=== PATIENT | male | born 2000 | race Two or more races ===

== ENCOUNTER 2024-06-19 13:50 | Inpatient (IN) | payer OTHER, SELFPAY ==
--- NOTE | ~2024-06-19 | XR_ITS ---
EXAMINATION: XR CHEST 2 VIEW CLINICAL INFORMATION: Altered, rule out infection COMPARISON: None TECHNIQUE: PA and lateral views of the chest obtained. FINDINGS: The lungs are clear. There are no pleural effusions. The cardiomediastinal silhouette is normal. XR/XR chest 2V IMPRESSION: No acute cardiopulmonary disease.
--- NOTE | ~2024-06-19 | CT_ITS ---
EXAMINATION: CT head/brain wo IV con CLINICAL INFORMATION: Reason for Exam altered, unknown head injury COMPARISON: CT head without contrast 01/14/2013 TECHNIQUE: Contiguous axial imaging was performed from the skull base to vertex without intravenous contrast. Sagittal and coronal reformatted images were obtained. This CT examination was performed using dose optimization techniques as appropriate, variously including the following: * Automated exposure control * Adjustment of mA and/or kV according to patient size (this includes techniques or standardized protocols for targeted exams where dose is matched to indication/reason for exam; i.e. extremities or head) Use of iterative reconstruction technique DLP: 581.13 mGy-cm FINDINGS: No acute osseous or soft tissue abnormality. The mastoid air cells and visualized portions of the paranasal sinuses are well aerated. Polyp in anterior right nasal cavity is noted. There is no evidence of acute intracranial hemorrhage or territorial infarction. No abnormal mass effect or midline shift is seen. Rod to white matter differentiation is well preserved. No extra-axial fluid collections are identified. No hydrocephalus. No significant volume loss. There is no abnormal attenuation within the brain parenchyma. CT/CT head/brain wo IV con IMPRESSION: No acute intracranial abnormality including hemorrhage, mass effect, hydrocephalus, or acute territorial edematous infarction.
--- NOTE | 2024-06-19 14:23 | ED_ITS ---
HPI - Psych General Chief Complaint: Psychiatric Symptoms Stated Complaint: Crisis Time Seen by Provider: 06/19/24 14:02 Source: patient Mode of arrival: ambulatory Limitations: no limitations History of Present Illness ED Provider: DANIELA SHANNON PA-C HPI Narrative: 24 year old male presents to the ED today for evaluation of spiritual issues . Reports he is not doing well spiritually. States the other half of him left his body. He believes he may have started judgment day. Admits to auditory hallucinations up until last night. States the voices were telling him everything . Denies AH/VH/TH at present. Denies SI/HI. He tells me that the only medication he takes is [id number] pain medication. Does not endorse previous psychiatric history. He tells me that Gregoria denies illicit substance use and alcohol consumption however the other side of him, Arturo, uses marijuana and consumes alcohol. Denies any physical complaints. Of note, patient states that his presentation may be secondary to a previous concussion. Reports to boxing regularly. He can not tell me when he was diagnosed with a concussion. He denies any recent head injuries. Related Data Home Medications ?Medication ?Instructions ?Recorded ?Confirmed No Known Home Meds 06/19/24 06/19/24 Allergies Allergy/AdvReac Type Severity Reaction Status Date / Time No Known Drug Allergies Allergy Mild NONE Unverified 06/19/24 14:41 [NO KNOWN DRUG ALLERGIES] Review of Systems 2 Review of Systems: Constitutional: No fever, chills, fatigue, night sweats, weight changes ENT/Mouth: No ear pain, hearing loss, nasal congestion, sinus pain, rhinorrhea, sore throat Eyes: No eye pain, swelling, redness, vision changes, discharge Cardio: No chest pain, palpitations, [place], orthopnea, peripheral edema Pulm: No SOB, cough, sputum, wheezing, dyspnea, hemoptysis GI: No nausea, vomiting, hematemesis, abdominal pain, diarrhea, constipation, hematochezia, melena : No irregular bleeding, dysuria, frequency, urgency, hesitancy, hematuria, flank pain, urinary flow changes, urinary incontinence or retention MSK: No back pain, neck pain, joint pain, myalgias Skin: No lesions, rashes Neuro: No weakness, numbness, paresthesias, LOC, dizziness, headache Psych: No anxiety/panic, depression, SI/HI, AH/VH All other systems reviewed and are negative. [facility] Past Medical History Attestation statement: The following information was validated with the patient. Source: old records reviewed and nursing notes reviewed Social History Social History Smoked in Last 30 Days: No Use of substances other than those prescribed or required for medical reasons: Yes Substance Use Type: Marijuana Advance Directives: No Advance Directives Information Provided: No Physical Exam 2 Vital Signs: Vital Signs: Last Vital Signs Temp 98.6 F 06/19/24 14:44 Pulse 94 06/19/24 14:44 Resp 18 06/19/24 14:44 BP 146/88 H 06/19/24 14:44 Pulse Ox 99 06/19/24 14:44 O2 Del Method Room Air 06/19/24 14:44 BMI result Body Mass Index 21.3 hypertensive, vitals otherwise wnl. Const: General: cooperative, healthy appearing, comfortable and no acute distress Orientation/consciousness: patient oriented x3 Limitations: no limitations HEENT: Head: Yes normal to inspection, Yes No palpable skull fracture present, Yes normocephalic, Yes atraumatic, No Brown's sign, No raccoon eyes and No periorbital ecchymosis Eyes: General: appearance normal, both eyes and all related structures P upils: Equal, round and reactive pupils present Neck: Neck: Yes normal visual inspection Resp: Effort & Inspection: normal respiratory effort and able to speak in complete sentences Cardio: Rate: regular rate Rhythm: regular rhythm GI: Inspection: Yes normal to inspection Skin: General skin exam: no rashes or lesions noted Neuro: General: patient oriented x3 and gait normal Cranial nerves: Yes CN's II-XII intact bilaterally and Yes Equal, round and reactive pupils present Extrem: General: Yes normal to inspection Psych: Other: Speech is pressured. Often whispers to himself. Referencing the other half of him as someone called Arturo . Course Course Course Narrative: 0408-- CBC showing leukocytosis to 13.7 without left shift. Chemistry showing hypokalemia at 3.1. PO repletion ordered. EKG ordered. No other acute electrolyte abnormalities requiring intervention. Normal renal function. AST elevated to 48. Urine does not demonstrate infection or blood. Urine toxicology positive for marijuana. Otherwise negative. Ethanol undetectable. > given patient's leukocytosis, will order chest x-ray and viral serology to rule out infectious etiology. > CT head ordered d/t patients altered behavior and vague statements of recent head injury > patient stable at the end of my shift. Sign-out given to my colleague Blanche NICHOLS pending viral serology, chest x-ray, EKG, p.o. potassium repletion, CT head/brain and care team consultation Reevaluation(s) Reevaluation #1: CBC with leukocytosis 13.7 no left shift, unlikely that this is bacterial in nature this is likely reactive likely secondary to manic state/acute psychosis. Chemistry with low potassium 3.1 previous provider gave p.o. potassium, will repeat potassium level at a later time. UA without infection. Urine toxicology positive for marijuana, ethanol negative. Flu, COVID, RSV negative. Head CT no acute intracranial abnormality including hemorrhage, mass effect, hydrocephalus or acute territorial edematous infarction. Chest x-ray obtained and pending however, I do not suspect pneumonia. At this time patient to be placed into observation to allow more time to be evaluated by care team, patient is evidently manic this will allow more time for care team evaluation. At time observation was started patient common cooperative no acute distress vital signs are stable. Will continue to monitor. Pending repeat potassium Time: 17:31 Medications Administered Discontinued Medications Generic Name Dose Route Start Last Admin Trade Name Freq PRN Reason Stop Dose Admin Diphenhydramine HCl 50 mg 06/19/24 17:32 06/19/24 17:35 Diphenhydramine Hcl 25 Mg Capsule PO 06/19/24 17:33 50 mg ONCE ONE Administration Lorazepam 2 mg 06/19/24 17:32 06/19/24 17:36 Lorazepam 1 Mg Tablet PO 06/19/24 17:33 2 mg ONCE ONE Administration Olanzapine 5 mg 06/19/24 17:32 06/19/24 17:35 Olanzapine 5 Mg Tablet PO 06/19/24 17:33 5 mg ONCE ONE Administration Potassium Chloride 40 meq 06/19/24 15:47 06/19/24 15:57 Potassium Chloride Packet 20 Meq Packet PO 06/19/24 15:48 40 meq ONCE ONE Administration Medical Decision Making Medical Decision Making MDM Narrative: 24 year old male presents to the ED today for evaluation of spiritual issues . Patient hypertensive to 146/88. Vitals otherwise WNL. He is nontoxic-appearing and in no acute distress. Speech is pressured. Often whispers to himself. Referencing the other half of him as someone called Arturo . Exam is nonfocal. Ambulating with steady gait. CN1-12 intact. Differential diagnosis includes anxiety, bipolar disorder, schizophrenia, acute manic episode, polysubstance abuse Plan for labs, UA, U tox, care team consultation Differential Diagnosis Differential Diagnoses: The differential diagnosis associated with the presentation includes As above Admission/Observation Consideration of admission/observation: Escalation of care including admission/observation considered Lab Data MDM Lab Attestation statement: I reviewed the patient's lab results. As above 06/19/24 14:28 06/19/24 14:28 Labs: Lab Results 06/19/24 06/19/24 06/19/24 Range/Units 14:28 14:49 16:25 WBC 13.7 H (4.8-10.8) X10*3/uL RBC 4.81 (4.60-5.80) X10*6/uL Hgb 14.6 (14.0-18.0) g/dl Hct 39.9 L (42.0-52.0) % MCV 83.0 (80.0-98.0) fL MCH 30.4 (27.0-33.0) pg MCHC 36.6 H (31.0-36.0) g/dl RDW 12.3 (11.0-16.0) % Plt Count 211 (160-400) X10*3/uL MPV 10.6 (9.4-12.4) fL Immature Gran % (Auto) 0.4 (0.0-0.4) % Neut % (Auto) 74.4 H (45-73) % Lymph % (Auto) 14.7 L (20-40) % Hughes % (Auto) 10.2 (2-11) % Eos % (Auto) 0.0 (0-4) % Baso % (Auto) 0.3 (0-2) % Lymph # (Auto) 2.0 (1.2-4.9) X10*3/uL Hughes # (Auto) 1.4 H (0.1-1.2) X10*3/uL Eos # (Auto) 0.0 (0.0-0.4) X10*3/uL Baso # (Auto) 0.0 (0.0-0.2) X10*3/uL Abs Immat Gran (auto) 0.05 H (0.00-0.03) X10*3/uL Absolute Neuts (auto) 10.2 H (2.0-8.3) x10*3/uL Absolute Nucleated RBC 0.000 (0.0-0.012) X10*3/uL Nucleated RBC % (auto) 0.0 (0.0-0.2) /100WBC Sodium 141 (135-145) mmol/L Potassium 3.1 L (3.3-5.1) mmol/L Chloride 102 (96-108) mmol/L Carbon Dioxide 28 (22-29) mmol/L Anion Gap 14 (12-20) BUN 9 (9-16) mg/dL Creatinine 0.81 (0.5-1.4) mg/dL Estim Creat Clear Calc 124.8 Estimated GFR > 60 Random Glucose 101 (60-115) mg/dL Calcium 10.1 (8.4-10.2) mg/dL Total Bilirubin 0.6 (0.0-1.0) mg/dL AST 48 H (5-37) U/L ALT 31 (0-40) U/L Alkaline Phosphatase 68 (39-117) U/L Total Protein 7.2 (6.5-8.0) g/dL Albumin 4.7 (3.5-5.0) g/dL Urine Color Yellow Urine Appearance Clear Urine pH 7.5 (5.0-9.0) Ur Specific [place] <= 1.005 (1.005-1.025) Urine Protein Negative (Neg-Trace) mg/dL Urine Glucose (UA) Negative (Negative) mg/dL Urine Ketones Trace (Negative) mg/dL Urine Blood Negative (Negative) Urine Nitrite Negative (Negative) Ur Leukocyte Esterase Negative (Negative) Urine Opiates Screen Not Detected (Not Detect) Ur Buprenorphine Scrn Not Detected (Not Detect) ng/mL Ur Oxycodone Screen Not Detected (Not Detect) ng/mL Urine Methadone Screen Not Detected (Not Detect) ng/mL Urine Fentanyl Screen Not Detected (Not Detect) Ur Barbiturates Screen Not Detected (Not Detect) Ur Phencyclidine Scrn Not Detected (Not Detect) Ur Amphetamines Screen Not Detected (Not Detect) U Benzodiazepines Scrn Not Detected (Not Detect) Urine Cocaine Screen Not Detected (Not Detect) U Marijuana (THC) Screen POSITIVE H (Not Detect) Ethyl Alcohol < 10 mg/dL Influenza Type A (PCR) NEGATIVE (Negative) Influenza Type B (PCR) NEGATIVE (Negative) RSV RNA Qual (PCR) NEGATIVE (Negative) SARS-CoV-2 RNA (RT-PCR) NEGATIVE (Negative) Independent Interpretation I performed an independent interpretation of an: EKG, Plain X-Ray and CT Scan Interpretation: EKG showing NSR with sinus arrhythmia w/ a rate of 62 bpm, QT 422, QTC 428, no acute ischemic changes or ST elevations. CT head/brain without mass or bleed, agree with radiologist's interpretation. Radiology Impression Discussion of test interpretation with radiology: I have reviewed the radiologist's reading. Radiologist Impression: EXAMINATION: CT head/brain wo IV con CLINICAL INFORMATION: Reason for Exam altered, unknown head injury COMPARISON: CT head without contrast 01/14/2013 TECHNIQUE: Contiguous axial imaging was performed from the skull base to vertex without intravenous contrast. Sagittal and coronal reformatted images were obtained. This CT examination was performed using dose optimization techniques as appropriate, variously including the following: * Automated exposure control * Adjustment of mA and/or kV according to patient size (this includes techniques or standardized protocols for targeted exams where dose is matched to indication/reason for exam; i.e. extremities or head) Use of iterative reconstruction technique DLP: 581.13 mGy-cm FINDINGS: No acute osseous or soft tissue abnormality. The mastoid air cells and visualized portions of the paranasal sinuses are well aerated. Polyp in anterior right nasal cavity is noted. There is no evidence of acute intracranial hemorrhage or territorial infarction. No abnormal mass effect or midline shift is seen. Rod to white matter differentiation is well preserved. No extra-axial fluid collections are identified. No hydrocephalus. No significant volume loss. There is no abnormal attenuation within the brain parenchyma. CT/CT head/brain wo IV con IMPRESSION: No acute intracranial abnormality including hemorrhage, mass effect, hydrocephalus, or acute territorial edematous infarction. Social Determinants Patient?s care significantly limited by Social Determinants of Health including: Other Social Determinant of Health Critical Care Time Critical Care Time Critical Care Time: No Discharge Plan Discharge Clinical Impression: Acute psychosis Patient Disposition: Still a Patient Prescriptions: No Action No Known Home Meds Interventions: [place]-Suicide Risk Severity Scale Last Done: 06/19/24 14:45 Print Language: Maldivian
[2024-06-19 14:32] LABS: MANUAL DIFF FLAG NO
[2024-06-19 14:33] VITALS: BP 146/88; PULSE 94; RESP 18; TEMP 37; O2SAT 99; BMI 21.3
[2024-06-19 14:34] LABS: Basophils Percent Auto 0.3 % (0-2); Hematocrit 39.9 % (42.0-52.0); Hemoglobin 14.6 g/dl (14.0-18.0); Imm Gran Abs Auto 0.05 X10*3/uL (0.00-0.03); Imm Gran Pct Auto 0.4 % (0.0-0.4); Lymphocytes Percent Auto 14.7 % (20-40); Mean Corpuscular HGB Conc 36.6 g/dl (31.0-36.0); Mean Corpuscular Hemoglobin 30.4 pg (27.0-33.0); Mean Platelet Volume 10.6 fL (9.4-12.4); Monocytes Absolute Auto 1.4 X10*3/uL (0.1-1.2); Monocytes Percent Auto 10.2 % (2-11); Neutrophils Absolute Auto 10.2 x10*3/uL (2.0-8.3); Neutrophils Percent Auto 74.4 % (45-73); Platelet Count 211 X10*3/uL (160-400); Red Blood Count 4.81 X10*6/uL (4.60-5.80); Red Cell Distribution Width 12.3 % (11.0-16.0); White Blood Count 13.7 X10*3/uL (4.8-10.8)
[2024-06-19 14:44] VITALS: BP 146/88; PULSE 94; RESP 18; TEMP 37; O2SAT 99
[2024-06-19 14:56] LABS: Appearance Urine Clear; Color Urine Yellow; Glucose Urine UA Negative (Negative); Leukocyte Esterase Urine Negative (Negative); Nitrite Urine Negative (Negative); PH 7.5 (5.0-9.0); Specific Gravity - Urine <= 1.005 (1.005-1.025); Urine Blood Negative (Negative); Urine Ketones Trace mg/dL (Negative); Urine Protein Negative (Neg-Trace)
[2024-06-19 14:59] LABS: Alanine Aminotransferase 31 U/L (0-40); Albumin Level 4.7 g/dL (3.5-5.0); Alkaline Phosphatase 68 U/L (39-117); Anion Gap 14 (12-20); Aspartate Amino Transferase 48 U/L (5-37); Bilirubin Total 0.6 mg/dL (0.0-1.0); Blood Urea Nitrogen 9 mg/dL (9-16); Calcium 10.1 mg/dL (8.4-10.2); Carbon Dioxide 28 mmol/L (22-29); Chloride 102 mmol/L (96-108); Creatinine Clr Calc Pharmacy 124.8; Estimated Glomerular Filt Rate > 60; Ethanol < 10 mg/dL; Glucose Random 101 mg/dL (60-115); Potassium 3.1 mmol/L (3.3-5.1); Sodium 141 mmol/L (135-145); Total Protein 7.2 g/dL (6.5-8.0)
[2024-06-19 15:07] LABS: Amphetamine Screen Urine Not Detected (Not Detect); Barbiturates, Urine Not Detected (Not Detect); Benzodiazepines Screen Urine Not Detected (Not Detect); Buprenorphine Scr Not Detected (Not Detect); Cannabinoid Screen Urine POSITIVE (Not Detect); Cocaine Screen Urine Not Detected (Not Detect); Fentanyl, urine Not Detected (Not Detect); Methadone Screen, Urine Not Detected (Not Detect); Opiate Screen Urine Not Detected (Not Detect); Oxycodone Screen Urine Not Detected (Not Detect); Phencyclidine Screen Urine Not Detected (Not Detect)
--- NOTE | 2024-06-19 15:48 | ECG_ITS ---
Test Reason : HYPOKALEMIA Blood Pressure : / mmHG Vent. Rate : 062 BPM Atrial Rate : 062 BPM P-R Int : 112 ms QRS Dur : 078 ms QT Int : 422 ms P-R-T Axes : 033 075 058 degrees QTc Int : 428 ms Normal sinus rhythm with sinus arrhythmia Normal ECG No previous ECGs available Referred By: Rekha Jimenes Electronically Signed By:Pal Corbin
[2024-06-19] MEDS: Potassium Chloride Packet 20 MEQ PACKET 40 MEQ PO (15:57)
[2024-06-19 17:12] LABS: Influenza A PCR NEGATIVE (Negative); Influenza B PCR NEGATIVE (Negative); Resp Syncy Virus RNA Qual PCR NEGATIVE (Negative); SARS COV2 PCR INHOUSE NEGATIVE (Negative)
[2024-06-19] MEDS: OLANZapine 5 MG TABLET PO (17:35)
[2024-06-19] MEDS: diphenhydrAMINE HCL 25 MG CAPSULE 50 MG PO (17:35)
[2024-06-19] MEDS: LORazepam 1 MG TABLET 2 MG PO (17:36)
[2024-06-19 18:06] LABS: Potassium 3.5 mmol/L (3.3-5.1)
[2024-06-20] MEDS: LORazepam 1 MG TABLET PO ×2 (05:25→23:29)
--- NOTE | 2024-06-20 05:53 | PC.NURSE ---
Pt slept through most of the night. Awoke at 0500 pacing in the milieu and reporting increased anxiety. Requesting hot shower to calm down. Pt showered and provided clean clothing. Medicated for anxiety. Pt encouraged to ask for assistance when feeling anxious. Pt currently resting at the bedside. Calm and cooperative. Able to follow directions. No apparent distress noted. Monitoring is ongoing.
--- NOTE | 2024-06-20 06:53 | PC.NURSE ---
Assumed care of patient at 0645. Patient is observed resting quietly in their bed. No signs of distress. Breathing is even and unlabored.
[2024-06-20 08:07] VITALS: BP 154/94; PULSE 110; RESP 22; TEMP 36.6; O2SAT 100
--- NOTE | 2024-06-20 08:45 | PHA.MEDREC ---
Pharmacy Consult ? Medication Reconciliation Pharmacy has completed the medication reconciliation. Pharmacy has reviewed the med rec done by nursing. confirmed with nurse Tray Sandoval that patient is on no home medication.
[2024-06-20 11:19] VITALS: BP 136/92; PULSE 87; RESP 20; TEMP 37; O2SAT 100
[2024-06-20 15:26] VITALS: BMI 20.3
[2024-06-20 15:27] VITALS: BP 160/85; PULSE 110; RESP 16; TEMP 36.2; O2SAT 96
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
[2024-06-20] MEDS: hydrOXYzine HCL 25 MG TABLET PO (22:25)
[2024-06-20] MEDS: OLANZapine 5 MG TABLET PO (22:25)
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
[2024-06-20] MEDS: OLANZapine ODT 10 MG TAB.RAPDIS TRANSLINGU (23:29)
[2024-06-21] MEDS: OLANZapine 5 MG TABLET PO (09:23)
[2024-06-21 09:32] VITALS: BP 154/98; PULSE 127; RESP 18; TEMP 38.2; O2SAT 98
[2024-06-21] MEDS: hydrOXYzine HCL 25 MG TABLET PO ×2 (10:20→20:58)
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
[2024-06-21 20:00] VITALS: BP 162/99; PULSE 101; RESP 18; TEMP 37.6; O2SAT 92
[2024-06-21] MEDS: traZODone HCL 50 MG TABLET PO (20:58)
[2024-06-21] MEDS: OLANZapine ODT 10 MG TAB.RAPDIS 20 MG TRANSLINGU (20:59)
[2024-06-22 08:00] VITALS: BP 132/80; PULSE 89; RESP 18; TEMP 36.8; O2SAT 100
[2024-06-22] MEDS: hydrOXYzine HCL 25 MG TABLET PO (09:01)
[2024-06-22] MEDS: OLANZapine 5 MG TABLET PO (09:01)
[2024-06-22] MEDS: LORazepam 1 MG TABLET PO ×2 (09:01→13:18)
--- NOTE | 2024-06-22 10:07 | PC.NURSE ---
Per community living instructor pt's mother Amelia called and reported that Lisa had called the police reporting a disturbance to her home and they showed up. She states that this violates the restraining order I have against him. She stated that pt disguised his voice as a females and asked the police to come to her home This was reported to pt provider. Continues with 1:1 on close observation.
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
[2024-06-22] MEDS: OLANZapine ODT 10 MG TAB.RAPDIS 20 MG TRANSLINGU (19:56)
[2024-06-22] MEDS: traZODone HCL 50 MG TABLET PO (19:57)
[2024-06-22 20:00] VITALS: BP 125/80; PULSE 106; TEMP 37.1
[2024-06-23] MEDS: LORazepam 1 MG TABLET PO ×2 (04:24→19:49)
[2024-06-23] MEDS: OLANZapine 5 MG TABLET PO (04:24)
[2024-06-23 07:30] VITALS: BP 126/87; PULSE 104; RESP 16; TEMP 36.7; O2SAT 98
--- NOTE | 2024-06-23 11:57 | P.PNPSI_ITS ---
Subjective Subjective Date of Service: 06/23/24 Reason For Visit: Crisis Subjective Notes: Conditional Voluntary Healthcare Proxy: No Guardianship: No Medical Problems Affecting Mental Status: No Interim History: One to one discontinued Visable in milieu Talkative with some team members. Very informative with his social and human services assistant today Superficial with tw-pats tw head, smiles, walks away. I feel better I feel safe here . Multiple approaches to tw by pt in the corridor with smiling, non verbal connections, seemingly assessing responses and establishing safety with attempted alliance. Medication Compliance: Yes Side effects from medications: No Attending Groups: No Review of Systems Acute medical concerns: No Medical Review of Systems: unchanged Review of Systems Review of Systems Yes Unobtainable due to mental status Mental Status Exam Mental Status Exam Patient Appearance: Appropriate Patient Orientation: Person Level of Consciousness: Alert Patient Behavior: Guarded, Talkative, Suspicious, Restless, Wandering, Anxious, Distractible and Isolative Mood Description: Withdrawn, Anxious, Nervous and Apprehensive Affect Description: Constricted Patient Cognition Impaired: Yes Ability to Follow Directions: Fair Speech Pattern: Perseverating, Spontaneous Speech, Soft-Spoken and Long Pauses Memory Description: Remote Impaired and Episodic Impaired Hallucinations: Auditory and Visual Delusions: Paranoid Ideation and Present Perceptual Disturbances: Derealization Thought Process: Illogical and Distracted Thought Content: positive for Perseveration, positive for Thought Blocking, positive for Tangential and positive for Disorganized Depressive Symptoms: Insomnia, Diff. Making Decisions, Difficulty Sleeping and Increased Fatigue Abnormal Motor Activity Signs and Symptoms: Restlessness Judgement: Poor Diagnostics Vital Signs (24Hr): Vital Signs - 24 hr 06/22/24 20:00 06/23/24 07:30 Temperature 98.8 F 98.1 F Pulse Rate 106 H 104 H Respiratory Rate 16 Blood Pressure 125/80 126/87 Pulse Oximetry 98 Oxygen Delivery Method Room Air BMI result Body Mass Index 20.3 Labs 06/19/24 14:28 06/19/24 17:49 Imaging Radiology Impressions: ITS Impressions Head CT 06/19/24 16:14 IMPRESSION: No acute intracranial abnormality including hemorrhage, mass effect, hydrocephalus, or acute territorial edematous infarction. Chest X-Ray 06/19/24 16:50 IMPRESSION: No acute cardiopulmonary disease. Medications Medications Current Medications Acetaminophen (Acetaminophen 325 Mg Tablet) 650 mg PO Q6H PRN PRN Reason: Headache/Pain Mild Scale (1-3) Al Hydroxide/Mg Hydroxide (Magnesium Hydrox/Alum Hydrox 30 Ml Oral.Susp) 30 ml PO Q6H PRN PRN Reason: Heartburn/Nausea Hydroxyzine HCl (Hydroxyzine Hcl 25 Mg Tablet) 25 mg PO Q6H PRN PRN Reason: Anxiety Last Admin: 06/22/24 09:01 Dose: 25 mg Lorazepam (Lorazepam 1 Mg Tablet) 1 mg PO Q4H PRN PRN Reason: anxiety, agitation Last Admin: 06/23/24 04:24 Dose: 1 mg Magnesium Hydroxide (Milk Of Magnesia 30 Ml Oral.Susp) 30 ml PO DAILY PRN PRN Reason: Constipation Nicotine Polacrilex (Nicotine Polacrilex 2 Mg Gum) 4 mg BUCCAL Q2H PRN PRN Reason: Nicotine Cravings Olanzapine (Olanzapine 5 Mg Tablet) 5 mg PO TID PRN PRN Reason: psychosis, agitation Last Admin: 06/23/24 04:24 Dose: 5 mg Olanzapine (Olanzapine Odt 10 Mg Tab.Rapdis) 20 mg TRANSLINGU BEDTIME SADIQ Last Admin: 06/22/24 19:56 Dose: 20 mg Trazodone HCl (Trazodone Hcl 50 Mg Tablet) 50 mg PO BEDTIME MRX1 PRN PRN Reason: Insomnia Last Admin: 06/22/24 19:57 Dose: 50 mg Allergies Allergies Allergy/AdvReac Type Severity Reaction Status Date / Time No Known Drug Allergies Allergy Mild NONE Unverified 06/19/24 14:41 [NO KNOWN DRUG ALLERGIES] Assessment & Plan Assessment & Plan (1) Acute psychosis: Status: Acute Code(s): F23 - Brief psychotic disorder (2) Cannabis use disorder: Status: Acute Code(s): F12.90 - Cannabis use, unspecified, uncomplicated Plan Acute Psychosis, Cannabis Use Disorder Plan 1. Admit, CV, one to one 2. Medical monitoring, elevated WBC, T 97.2 100.7 99.6 this evening, elevated BP/P 3. Olanzapine 20 mg HS and prn 4. Lorazepam 1 mg po q4h prn anxiety, agitation 5. Collateral contact 06/23/24: Continue regime, ?need to add Risperdal/Haldol to help with clarity of thought process. Reason for continued inpatient stay Substantial Risk for: rapid decompensation Time Spent With Patient Time: Total time managing care of this patient today ____ minutes.
[2024-06-23] MEDS: OLANZapine ODT 10 MG TAB.RAPDIS 20 MG TRANSLINGU (19:49)
[2024-06-23] MEDS: traZODone HCL 50 MG TABLET PO (19:49)
[2024-06-23 20:00] VITALS: BP 137/85; PULSE 93; RESP 15; TEMP 37; O2SAT 99
[2024-06-24] MEDS: LORazepam 1 MG TABLET PO ×3 (05:10→21:31)
[2024-06-24] MEDS: OLANZapine 5 MG TABLET PO (05:10)
--- NOTE | 2024-06-24 05:17 | PC.NURSE ---
This marine underwriter sat with this patient for approximately 1 hour, from 0400 to 0500. At first, the patient was lucid, talking about how he was having difficulty sleeping, and might have a snack. We had a good conversation about [employer] characters: Spider man, which Spider Man actor was his favorite, the new casting of Doctor Bharat. Suddenly, the patient leaned over and was making a gesture into his elbow. This marine underwriter asked Did you have blood drawn for some tests? The patient replied No, they took it because they're jealous of my lee and they DRANK IT. He then started again with bizarre behaviour, winking and gesturing to photos in magazines, seemingly pointing things out but unable to articulate what.
[2024-06-24 09:03] VITALS: BP 121/56; PULSE 98; RESP 18; TEMP 36.4; O2SAT 98
--- NOTE | 2024-06-24 09:44 | HO.PSYCHPN ---
Subjective Subjective Date of Service: 06/24/24 Reason For Visit: Crisis Interim History: Met with patient. Discussed with Nursing. Overall continues to present as quite delusional and psychotic. Internally preoccupied. His feeling that people are targeting him and afraid of what he describes as his super natural para or to read minds. Very guarded. Sleep ok. Reports he does not need to take any medications, but is taking olanzapine. Denies SI or HI. Maintained on one-to-one observation. Medication Compliance: Yes Side effects from medications: No Attending Groups: Intermittent Review of Systems Acute medical concerns: No Review of Systems Review of Systems Unremarkable Mental Status Exam Mental Status Exam Narrative: casually dressed. One-to-one staff in place. In the milieu. Is guarded. Denies feeling depressed. Denies SI or HI. Is paranoid and bizarre delusions. Some grandiosity. Insight and judgment limited Diagnostics Vital Signs (24Hr): Vital Signs - 24 hr 06/23/24 20:00 06/24/24 09:03 Temperature 98.6 F 97.5 F Pulse Rate 93 98 Respiratory Rate 15 18 Blood Pressure 137/85 121/56 L Pulse Oximetry 99 98 Oxygen Delivery Method Room Air BMI result Body Mass Index 20.3 Labs 06/19/24 14:28 06/19/24 17:49 Imaging Radiology Impressions: ITS Impressions Head CT 06/19/24 16:14 IMPRESSION: No acute intracranial abnormality including hemorrhage, mass effect, hydrocephalus, or acute territorial edematous infarction. Chest X-Ray 06/19/24 16:50 IMPRESSION: No acute cardiopulmonary disease. Medications Medications Current Medications Acetaminophen (Acetaminophen 325 Mg Tablet) 650 mg PO Q6H PRN PRN Reason: Headache/Pain Mild Scale (1-3) Al Hydroxide/Mg Hydroxide (Magnesium Hydrox/Alum Hydrox 30 Ml Oral.Susp) 30 ml PO Q6H PRN PRN Reason: Heartburn/Nausea Hydroxyzine HCl (Hydroxyzine Hcl 25 Mg Tablet) 25 mg PO Q6H PRN PRN Reason: Anxiety Last Admin: 06/22/24 09:01 Dose: 25 mg Lorazepam (Lorazepam 1 Mg Tablet) 1 mg PO Q4H PRN PRN Reason: anxiety, agitation Last Admin: 06/24/24 05:10 Dose: 1 mg Magnesium Hydroxide (Milk Of Magnesia 30 Ml Oral.Susp) 30 ml PO DAILY PRN PRN Reason: Constipation Nicotine Polacrilex (Nicotine Polacrilex 2 Mg Gum) 4 mg BUCCAL Q2H PRN PRN Reason: Nicotine Cravings Olanzapine (Olanzapine 5 Mg Tablet) 5 mg PO TID PRN PRN Reason: psychosis, agitation Last Admin: 06/24/24 05:10 Dose: 5 mg Olanzapine (Olanzapine Odt 10 Mg Tab.Rapdis) 20 mg TRANSLINGU BEDTIME SADIQ Last Admin: 06/23/24 19:49 Dose: 20 mg Trazodone HCl (Trazodone Hcl 50 Mg Tablet) 50 mg PO BEDTIME MRX1 PRN PRN Reason: Insomnia Last Admin: 06/23/24 19:49 Dose: 50 mg Allergies Allergies Allergy/AdvReac Type Severity Reaction Status Date / Time No Known Drug Allergies Allergy Mild NONE Unverified 06/19/24 14:41 [NO KNOWN DRUG ALLERGIES] Assessment & Plan Assessment & Plan (1) Acute psychosis: Status: Acute Code(s): F23 - Brief psychotic disorder (2) Cannabis use disorder: Status: Acute Code(s): F12.90 - Cannabis use, unspecified, uncomplicated Plan Acute Psychosis, Cannabis Use Disorder Plan 1. Admit, CV, one to one 2. Medical monitoring, elevated WBC, T 97.2 100.7 99.6 this evening, elevated BP/P 3. Olanzapine 20 mg HS and prn 4. Lorazepam 1 mg po q4h prn anxiety, agitation 5. Collateral contact 06/23/24: Continue regime, ?need to add Risperdal/Haldol to help with clarity of thought process. 06/24/2024: Continue current regimen. Noted team may consider adding Risperdal or Haldol. Reason for continued inpatient stay Substantial Risk for: harm to others, inability to function and rapid decompensation Time Spent With Patient Time: Total time managing care of this patient today ____ minutes.
[2024-06-24 20:00] VITALS: BP 120/66; PULSE 108; RESP 16; TEMP 36.3; O2SAT 100
[2024-06-24] MEDS: OLANZapine ODT 10 MG TAB.RAPDIS 20 MG TRANSLINGU (21:31)
[2024-06-24] MEDS: traZODone HCL 50 MG TABLET PO (21:31)
[2024-06-25] MEDS: LORazepam 1 MG TABLET PO ×2 (03:36→13:43)
[2024-06-25 08:13] VITALS: BP 133/70; PULSE 97; RESP 16; TEMP 36.9; O2SAT 99
--- NOTE | 2024-06-25 08:41 | HO.PSYCHPN ---
Subjective Subjective Date of Service: 06/25/24 Reason For Visit: Crisis Interim History: Met with patient. Discussed with Nursing. Overall continues to present as quite delusional and psychotic. Internally preoccupied. Reports no longer feeling that people are targeting him today. However feels that he has unique ability with his eyes, where the right I can tell if people are good or bad and the left I can impact people's movements and ability to do things. Reports sleeping better last night now he is in a room by himself. Remains guarded. Sleep ok. Reports he does not need to take any medications, but is taking olanzapine. Denies SI or HI. Maintained on one-to-one observation. Medication Compliance: Yes Side effects from medications: No Attending Groups: No Review of Systems Acute medical concerns: No Review of Systems Review of Systems Unremarkable Mental Status Exam Mental Status Exam Narrative: casually dressed. One-to-one staff in place. In the milieu. Is guarded. Denies feeling depressed. Denies SI or HI. Is paranoid and bizarre delusions. Some grandiosity. Insight and judgment limited Diagnostics Vital Signs (24Hr): Vital Signs - 24 hr 06/24/24 09:03 06/24/24 20:00 06/25/24 08:13 Temperature 97.5 F 97.3 F 98.4 F Pulse Rate 98 108 H 97 Respiratory Rate 18 16 16 Blood Pressure 121/56 L 120/66 133/70 Pulse Oximetry 98 100 99 Oxygen Delivery Method Room Air Room Air BMI result Body Mass Index 20.3 Labs 06/19/24 14:28 06/19/24 17:49 Imaging Radiology Impressions: ITS Impressions Head CT 06/19/24 16:14 IMPRESSION: No acute intracranial abnormality including hemorrhage, mass effect, hydrocephalus, or acute territorial edematous infarction. Chest X-Ray 06/19/24 16:50 IMPRESSION: No acute cardiopulmonary disease. Medications Medications Current Medications Acetaminophen (Acetaminophen 325 Mg Tablet) 650 mg PO Q6H PRN PRN Reason: Headache/Pain Mild Scale (1-3) Al Hydroxide/Mg Hydroxide (Magnesium Hydrox/Alum Hydrox 30 Ml Oral.Susp) 30 ml PO Q6H PRN PRN Reason: Heartburn/Nausea Hydroxyzine HCl (Hydroxyzine Hcl 25 Mg Tablet) 25 mg PO Q6H PRN PRN Reason: Anxiety Last Admin: 06/22/24 09:01 Dose: 25 mg Lorazepam (Lorazepam 1 Mg Tablet) 1 mg PO Q4H PRN PRN Reason: anxiety, agitation Last Admin: 06/25/24 03:36 Dose: 1 mg Magnesium Hydroxide (Milk Of Magnesia 30 Ml Oral.Susp) 30 ml PO DAILY PRN PRN Reason: Constipation Nicotine Polacrilex (Nicotine Polacrilex 2 Mg Gum) 4 mg BUCCAL Q2H PRN PRN Reason: Nicotine Cravings Olanzapine (Olanzapine 5 Mg Tablet) 5 mg PO TID PRN PRN Reason: psychosis, agitation Last Admin: 06/24/24 05:10 Dose: 5 mg Olanzapine (Olanzapine Odt 10 Mg Tab.Rapdis) 20 mg TRANSLINGU BEDTIME SADIQ Last Admin: 06/24/24 21:31 Dose: 20 mg Trazodone HCl (Trazodone Hcl 50 Mg Tablet) 50 mg PO BEDTIME MRX1 PRN PRN Reason: Insomnia Last Admin: 06/24/24 21:31 Dose: 50 mg Allergies Allergies Allergy/AdvReac Type Severity Reaction Status Date / Time No Known Drug Allergies Allergy Mild NONE Unverified 06/19/24 14:41 [NO KNOWN DRUG ALLERGIES] Assessment & Plan Assessment & Plan (1) Acute psychosis: Status: Acute Code(s): F23 - Brief psychotic disorder (2) Cannabis use disorder: Status: Acute Code(s): F12.90 - Cannabis use, unspecified, uncomplicated Plan Acute Psychosis, Cannabis Use Disorder Plan 1. Admit, CV, one to one 2. Medical monitoring, elevated WBC, T 97.2 100.7 99.6 this evening, elevated BP/P 3. Olanzapine 20 mg HS and prn 4. Lorazepam 1 mg po q4h prn anxiety, agitation 5. Collateral contact 06/23/24: Continue regime, ?need to add Risperdal/Haldol to help with clarity of thought process. 06/25/2024: Continue current regimen. Noted team may consider adding Risperdal or Haldol. Reason for continued inpatient stay Substantial Risk for: inability to function Time Spent With Patient Time: Total time managing care of this patient today ____ minutes.
[2024-06-25 20:00] VITALS: RESP 20
[2024-06-25] MEDS: OLANZapine ODT 10 MG TAB.RAPDIS 20 MG TRANSLINGU (20:53)
[2024-06-25] MEDS: traZODone HCL 50 MG TABLET PO (23:24)
[2024-06-26 08:00] VITALS: BP 132/78; PULSE 84; RESP 16; TEMP 36.5; O2SAT 100
[2024-06-26] MEDS: Acetaminophen 325 MG TABLET 650 MG PO (09:04)
[2024-06-26] MEDS: LORazepam 1 MG TABLET PO ×2 (13:48→21:01)
--- NOTE | 2024-06-26 16:25 | HO.PSYCHPN ---
Subjective Subjective Date of Service: 06/26/24 Reason For Visit: Crisis Subjective Notes: Conditional Voluntary Healthcare Proxy: No Guardianship: No Medical Problems Affecting Mental Status: No Interim History: Tolerating Olanzapine, minimal improvement with psychosis/delusional content still evident. Will order EEG, labs, trial of Haldol 5 mg bid with Olanzapine Call from mother to check on pt. His symptoms are exactly like his father (who has schizophrenia). Fears pt, asks that she be notified when he is discharged as she is thinking of moving the family away. Older children have told mother that he has told them he would take care of her . This causes more fear. Medication Compliance: Yes Side effects from medications: No Attending Groups: No Review of Systems Acute medical concerns: No Medical Review of Systems: unchanged Review of Systems Review of Systems Yes Unobtainable due to mental status Mental Status Exam Mental Status Exam Patient Appearance: Appropriate Patient Orientation: Person Level of Consciousness: Alert Patient Behavior: Talkative, Avoidant and Distractible Mood Description: Constricted and Blunted Affect Description: Constricted and Blunted Patient Cognition Impaired: Yes Ability to Follow Directions: Fair Speech Pattern: Spontaneous Speech Memory Description: Remote Impaired and Episodic Impaired Hallucinations: Auditory Delusions: Present Perceptual Disturbances: Hallucinations Thought Process: Illogical and Distracted Thought Content: positive for Preoccupation, positive for Thought Blocking and positive for Disorganized Depressive Symptoms: Difficulty Concentrating Abnormal Motor Activity Signs and Symptoms: Restlessness Judgement: Poor Diagnostics Vital Signs (24Hr): Vital Signs - 24 hr 06/25/24 20:00 06/26/24 08:00 Temperature 97.7 F Pulse Rate 84 Respiratory Rate 20 16 Blood Pressure 132/78 Pulse Oximetry 100 Oxygen Delivery Method Room Air BMI result Body Mass Index 20.3 Labs 06/19/24 14:28 06/19/24 17:49 Imaging Radiology Impressions: ITS Impressions Head CT 06/19/24 16:14 IMPRESSION: No acute intracranial abnormality including hemorrhage, mass effect, hydrocephalus, or acute territorial edematous infarction. Chest X-Ray 06/19/24 16:50 IMPRESSION: No acute cardiopulmonary disease. Medications Medications Current Medications Acetaminophen (Acetaminophen 325 Mg Tablet) 650 mg PO Q6H PRN PRN Reason: Headache/Pain Mild Scale (1-3) Last Admin: 06/26/24 09:04 Dose: 650 mg Al Hydroxide/Mg Hydroxide (Magnesium Hydrox/Alum Hydrox 30 Ml Oral.Susp) 30 ml PO Q6H PRN PRN Reason: Heartburn/Nausea Hydroxyzine HCl (Hydroxyzine Hcl 25 Mg Tablet) 25 mg PO Q6H PRN PRN Reason: Anxiety Last Admin: 06/22/24 09:01 Dose: 25 mg Lorazepam (Lorazepam 1 Mg Tablet) 1 mg PO Q4H PRN PRN Reason: anxiety, agitation Last Admin: 06/26/24 13:48 Dose: 1 mg Magnesium Hydroxide (Milk Of Magnesia 30 Ml Oral.Susp) 30 ml PO DAILY PRN PRN Reason: Constipation Nicotine Polacrilex (Nicotine Polacrilex 2 Mg Gum) 4 mg BUCCAL Q2H PRN PRN Reason: Nicotine Cravings Olanzapine (Olanzapine 5 Mg Tablet) 5 mg PO TID PRN PRN Reason: psychosis, agitation Last Admin: 06/24/24 05:10 Dose: 5 mg Olanzapine (Olanzapine Odt 10 Mg Tab.Rapdis) 20 mg TRANSLINGU BEDTIME SADIQ Last Admin: 06/25/24 20:53 Dose: 20 mg Trazodone HCl (Trazodone Hcl 50 Mg Tablet) 50 mg PO BEDTIME MRX1 PRN PRN Reason: Insomnia Last Admin: 06/25/24 23:24 Dose: 50 mg Allergies Allergies Allergy/AdvReac Type Severity Reaction Status Date / Time No Known Drug Allergies Allergy Mild NONE Unverified 06/19/24 14:41 [NO KNOWN DRUG ALLERGIES] Assessment & Plan Assessment & Plan (1) Acute psychosis: Status: Acute Code(s): F23 - Brief psychotic disorder (2) Cannabis use disorder: Status: Acute Code(s): F12.90 - Cannabis use, unspecified, uncomplicated Plan Acute Psychosis, Cannabis Use Disorder Plan 1. Admit, CV, one to one 2. Medical monitoring, elevated WBC, T 97.2 100.7 99.6 this evening, elevated BP/P 3. Olanzapine 20 mg HS and prn 4. Lorazepam 1 mg po q4h prn anxiety, agitation 5. Collateral contact 06/23/24: Continue regime, ?need to add Risperdal/Haldol to help with clarity of thought process. 06/25/2024: Continue current regimen. Noted team may consider adding Risperdal or Haldol. 06/26/24: Haldol 5 mg bid EEG B12, Folate, TSH, A1c Informed Consent: does not understand Reason for continued inpatient stay Substantial Risk for: rapid decompensation Time Spent With Patient Time: Total time managing care of this patient today ____ minutes.
[2024-06-26] MEDS: hydrOXYzine HCL 25 MG TABLET PO (17:35)
[2024-06-26 20:00] VITALS: BP 136/92; PULSE 110; RESP 18; TEMP 37.1; O2SAT 105
[2024-06-26] MEDS: HaloperidoL 5 MG TABLET PO (21:01)
[2024-06-26] MEDS: OLANZapine ODT 10 MG TAB.RAPDIS 20 MG TRANSLINGU (21:01)
[2024-06-26] MEDS: traZODone HCL 50 MG TABLET PO (21:01)
[2024-06-27] MEDS: OLANZapine 5 MG TABLET PO (02:25)
[2024-06-27] MEDS: LORazepam 1 MG TABLET PO ×3 (02:25→20:16)
[2024-06-27] MEDS: traZODone HCL 50 MG TABLET PO (02:25)
[2024-06-27 08:58] VITALS: BP 130/81; PULSE 120; RESP 18; O2SAT 97
[2024-06-27] MEDS: HaloperidoL 5 MG TABLET PO ×2 (08:59→21:58)
[2024-06-27 09:10] LABS: Estimated Average Glucose 91 mg/dL; Hemoglobin A1c % 4.8 % (<6.0)
[2024-06-27 09:31] LABS: Folate 8.3 ng/mL (> or = 4.0); Vitamin B12 618 pg/mL (200-900)
[2024-06-27 09:51] LABS: Thyroid Stimulating Hormone 0.87 uIU/mL (0.32-4.0)
--- NOTE | 2024-06-27 10:00 | EEG_ITS ---
FINDINGS: The waking background activity consists of low-voltage fast frequencies seen diffusely intermixed with [id number] voltage 9 to 10 hertz posterior alpha frequency. Photic stimulation and hyperventilation are without activation. No focal, lateralizing, or paroxysmal discharges seen. IMPRESSION: This waking EEG is within normal limits. MD OSMAR Lorenzana/BRANDON / [phone]
[2024-06-27 10:40] VITALS: BP 139/66; PULSE 108; RESP 16; TEMP 36.9; O2SAT 100
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
[2024-06-27] MEDS: hydrOXYzine HCL 25 MG TABLET PO (14:54)
[2024-06-27 20:00] VITALS: BP 133/81; PULSE 120; RESP 18; TEMP 36.4; O2SAT 100
[2024-06-27] MEDS: OLANZapine ODT 10 MG TAB.RAPDIS 20 MG TRANSLINGU (21:58)
[2024-06-28] MEDS: LORazepam 1 MG TABLET PO ×2 (04:34→14:53)
[2024-06-28] MEDS: hydrOXYzine HCL 25 MG TABLET PO ×2 (04:34→18:10)
[2024-06-28 08:00] VITALS: BP 141/78; PULSE 129; TEMP 36.5; O2SAT 100
[2024-06-28] MEDS: HaloperidoL 5 MG TABLET PO (08:50)
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
[2024-06-28 20:00] VITALS: BP 151/86; PULSE 80; RESP 16; TEMP 36.6; O2SAT 100
[2024-06-28] MEDS: OLANZapine ODT 10 MG TAB.RAPDIS 20 MG TRANSLINGU (23:46)
[2024-06-28] MEDS: Haloperidol Lactate Oral Conc 10 MG/5 ML ORAL.CONC 5 MG PO (23:46)
[2024-06-28] MEDS: traZODone HCL 50 MG TABLET PO (23:46)
[2024-06-29] MEDS: Acetaminophen 325 MG TABLET 650 MG PO ×2 (00:11→07:04)
[2024-06-29] MEDS: LORazepam 1 MG TABLET PO ×2 (05:06→15:00)
[2024-06-29 08:00] VITALS: BP 139/91; PULSE 111; RESP 16; TEMP 37.1; O2SAT 98
[2024-06-29] MEDS: Haloperidol Lactate Oral Conc 10 MG/5 ML ORAL.CONC 5 MG PO ×2 (08:26→21:05)
[2024-06-29 11:22] VITALS: BMI 21.8
--- NOTE | 2024-06-29 17:01 | HO.PSYCHPN ---
Subjective Subjective Date of Service: 06/29/24 Reason For Visit: Crisis Subjective Notes: Conditional Voluntary Interim History: More visable in the milieu. Team reports pt appears more relaxed. No current questions or concerns, states I understand it here now I think. Some preoccupation observed, ?response to internal stimuli. Tolerating regime. Medication Compliance: Yes Side effects from medications: No Attending Groups: Intermittent Review of Systems Acute medical concerns: No Medical Review of Systems: unchanged Review of Systems Review of Systems Yes all other systems are reviewed and are negative and Unobtainable due to mental status Mental Status Exam Mental Status Exam Patient Appearance: Appropriate Patient Orientation: Person Level of Consciousness: Alert Patient Behavior: Talkative, Avoidant and Distractible Mood Description: Constricted, Fearful and Blunted Affect Description: Constricted and Blunted Patient Cognition Impaired: Yes Ability to Follow Directions: Fair Speech Pattern: Spontaneous Speech Memory Description: Remote Impaired and Episodic Impaired Hallucinations: Auditory Delusions: Paranoid Ideation and Present Perceptual Disturbances: Hallucinations Thought Process: Illogical and Distracted Thought Content: positive for Preoccupation, positive for Thought Blocking and positive for Disorganized Depressive Symptoms: Difficulty Concentrating Abnormal Motor Activity Signs and Symptoms: Restlessness Judgement: Poor Diagnostics Vital Signs (24Hr): Vital Signs - 24 hr 06/28/24 20:00 06/29/24 08:00 Temperature 97.9 F 98.8 F Pulse Rate 80 111 H Respiratory Rate 16 16 Blood Pressure 151/86 H 139/91 H Pulse Oximetry 100 98 Oxygen Delivery Method Room Air Room Air BMI result Body Mass Index 21.8 Labs 06/19/24 14:28 06/19/24 17:49 Imaging Radiology Impressions: ITS Impressions Head CT 06/19/24 16:14 IMPRESSION: No acute intracranial abnormality including hemorrhage, mass effect, hydrocephalus, or acute territorial edematous infarction. Chest X-Ray 06/19/24 16:50 IMPRESSION: No acute cardiopulmonary disease. Medications Medications Current Medications Acetaminophen (Acetaminophen 325 Mg Tablet) 650 mg PO Q6H PRN PRN Reason: Headache/Pain Mild Scale (1-3) Last Admin: 06/29/24 07:04 Dose: 650 mg Al Hydroxide/Mg Hydroxide (Magnesium Hydrox/Alum Hydrox 30 Ml Oral.Susp) 30 ml PO Q6H PRN PRN Reason: Heartburn/Nausea Haloperidol Lactate (Haloperidol Lactate Oral Conc 10 Mg/5 Ml Oral.Conc) 5 mg PO BID [facility] Last Admin: 06/29/24 08:26 Dose: 5 mg Hydroxyzine HCl (Hydroxyzine Hcl 25 Mg Tablet) 25 mg PO Q6H PRN PRN Reason: Anxiety Last Admin: 06/28/24 18:10 Dose: 25 mg Lorazepam (Lorazepam 1 Mg Tablet) 1 mg PO Q4H PRN PRN Reason: anxiety, agitation Last Admin: 06/29/24 15:00 Dose: 1 mg Magnesium Hydroxide (Milk Of Magnesia 30 Ml Oral.Susp) 30 ml PO DAILY PRN PRN Reason: Constipation Nicotine Polacrilex (Nicotine Polacrilex 2 Mg Gum) 4 mg BUCCAL Q2H PRN PRN Reason: Nicotine Cravings Olanzapine (Olanzapine 5 Mg Tablet) 5 mg PO TID PRN PRN Reason: psychosis, agitation Last Admin: 06/27/24 02:25 Dose: 5 mg Olanzapine (Olanzapine Odt 10 Mg Tab.Rapdis) 20 mg TRANSLINGU BEDTIME [facility] Last Admin: 06/28/24 23:46 Dose: 20 mg Trazodone HCl (Trazodone Hcl 50 Mg Tablet) 50 mg PO BEDTIME MRX1 PRN PRN Reason: Insomnia Last Admin: 06/28/24 23:46 Dose: 50 mg Allergies Allergies Allergy/AdvReac Type Severity Reaction Status Date / Time No Known Drug Allergies Allergy Mild NONE Verified 06/27/24 15:25 [NO KNOWN DRUG ALLERGIES] Assessment & Plan Assessment & Plan (1) Acute psychosis: Status: Acute Code(s): F23 - Brief psychotic disorder (2) Cannabis use disorder: Status: Acute Code(s): F12.90 - Cannabis use, unspecified, uncomplicated Plan Acute Psychosis, Cannabis Use Disorder Plan 1. Admit, CV, one to one 2. Medical monitoring, elevated WBC, T 97.2 100.7 99.6 this evening, elevated BP/P 3. Olanzapine 20 mg HS and prn 4. Lorazepam 1 mg po q4h prn anxiety, agitation 5. Collateral contact 06/23/24: Continue regime, ?need to add Risperdal/Haldol to help with clarity of thought process. 06/25/2024: Continue current regimen. Noted team may consider adding Risperdal or Haldol. 06/26/24: Haldol 5 mg bid EEG B12, Folate, TSH, A1c 06/27/24: Continue treatment 06/28/24: Continue treatment 06/29/24: Continue treatment Reason for continued inpatient stay Substantial Risk for: rapid decompensation Time Spent With Patient Time: Total time managing care of this patient today ____ minutes.
[2024-06-29 20:00] VITALS: RESP 18
[2024-06-29] MEDS: OLANZapine ODT 10 MG TAB.RAPDIS 20 MG TRANSLINGU (21:05)
[2024-06-30 08:00] VITALS: BP 135/90; PULSE 114; TEMP 36.4; O2SAT 92
[2024-06-30] MEDS: Haloperidol Lactate Oral Conc 10 MG/5 ML ORAL.CONC 5 MG PO ×2 (08:58→21:04)
[2024-06-30] MEDS: LORazepam 1 MG TABLET PO (09:00)
[2024-06-30] MEDS: OLANZapine 5 MG TABLET PO (09:00)
--- NOTE | 2024-06-30 16:46 | HO.PSYCHPN ---
Subjective Subjective Date of Service: 06/30/24 Reason For Visit: Crisis Subjective Notes: Conditional Voluntary Healthcare Proxy: No Guardianship: No Medical Problems Affecting Mental Status: No Interim History: Team met with pt's probation team/legal team from [facility]. They encourage [facility] investigation and believe it will be of assistance to pt. Will begin application. Pt is in the milieu, seems to be more connected, making needs known, some socialization with peers and team at the nursing station, some brief socializing with tw and appears less anxious today. Medication Compliance: Yes Side effects from medications: No Attending Groups: Intermittent Review of Systems Acute medical concerns: No Medical Review of Systems: unchanged Review of Systems Review of Systems Yes all other systems are reviewed and are negative and Unobtainable due to mental status Mental Status Exam Mental Status Exam Patient Appearance: Appropriate Patient Orientation: Person Level of Consciousness: Alert Patient Behavior: Talkative, Avoidant and Distractible Mood Description: Constricted, Fearful and Blunted Affect Description: Constricted and Blunted Patient Cognition Impaired: Yes Ability to Follow Directions: Fair Speech Pattern: Spontaneous Speech Memory Description: Remote Impaired and Episodic Impaired Hallucinations: Auditory Delusions: Paranoid Ideation and Present Perceptual Disturbances: Hallucinations Thought Process: Illogical and Distracted Thought Content: positive for Preoccupation, positive for Thought Blocking and positive for Disorganized Depressive Symptoms: Difficulty Concentrating Abnormal Motor Activity Signs and Symptoms: Restlessness Judgement: Poor Diagnostics Vital Signs (24Hr): Vital Signs - 24 hr 06/29/24 20:00 06/30/24 08:00 Temperature 97.5 F Pulse Rate 114 H Respiratory Rate 18 Blood Pressure 135/90 H Pulse Oximetry 92 Oxygen Delivery Method Room Air BMI result Body Mass Index 21.8 Labs 06/19/24 14:28 06/19/24 17:49 Imaging Radiology Impressions: ITS Impressions Head CT 06/19/24 16:14 IMPRESSION: No acute intracranial abnormality including hemorrhage, mass effect, hydrocephalus, or acute territorial edematous infarction. Chest X-Ray 06/19/24 16:50 IMPRESSION: No acute cardiopulmonary disease. Medications Medications Current Medications Acetaminophen (Acetaminophen 325 Mg Tablet) 650 mg PO Q6H PRN PRN Reason: Headache/Pain Mild Scale (1-3) Last Admin: 06/29/24 07:04 Dose: 650 mg Al Hydroxide/Mg Hydroxide (Magnesium Hydrox/Alum Hydrox 30 Ml Oral.Susp) 30 ml PO Q6H PRN PRN Reason: Heartburn/Nausea Haloperidol Lactate (Haloperidol Lactate Oral Conc 10 Mg/5 Ml Oral.Conc) 5 mg PO BID [facility] Last Admin: 06/30/24 08:58 Dose: 5 mg Hydroxyzine HCl (Hydroxyzine Hcl 25 Mg Tablet) 25 mg PO Q6H PRN PRN Reason: Anxiety Last Admin: 06/28/24 18:10 Dose: 25 mg Lorazepam (Lorazepam 1 Mg Tablet) 1 mg PO Q4H PRN PRN Reason: anxiety, agitation Last Admin: 06/30/24 09:00 Dose: 1 mg Magnesium Hydroxide (Milk Of Magnesia 30 Ml Oral.Susp) 30 ml PO DAILY PRN PRN Reason: Constipation Nicotine Polacrilex (Nicotine Polacrilex 2 Mg Gum) 4 mg BUCCAL Q2H PRN PRN Reason: Nicotine Cravings Olanzapine (Olanzapine 5 Mg Tablet) 5 mg PO TID PRN PRN Reason: psychosis, agitation Last Admin: 06/30/24 09:00 Dose: 5 mg Olanzapine (Olanzapine Odt 10 Mg Tab.Rapdis) 20 mg TRANSLINGU BEDTIME [facility] Last Admin: 06/29/24 21:05 Dose: 20 mg Trazodone HCl (Trazodone Hcl 50 Mg Tablet) 50 mg PO BEDTIME MRX1 PRN PRN Reason: Insomnia Last Admin: 06/28/24 23:46 Dose: 50 mg Allergies Allergies Allergy/AdvReac Type Severity Reaction Status Date / Time No Known Drug Allergies Allergy Mild NONE Verified 06/27/24 15:25 [NO KNOWN DRUG ALLERGIES] Assessment & Plan Assessment & Plan (1) Acute psychosis: Status: Acute Code(s): F23 - Brief psychotic disorder (2) Cannabis use disorder: Status: Acute Code(s): F12.90 - Cannabis use, unspecified, uncomplicated Plan Acute Psychosis, Cannabis Use Disorder Plan 1. Admit, CV, one to one 2. Medical monitoring, elevated WBC, T 97.2 100.7 99.6 this evening, elevated BP/P 3. Olanzapine 20 mg HS and prn 4. Lorazepam 1 mg po q4h prn anxiety, agitation 5. Collateral contact 06/23/24: Continue regime, ?need to add Risperdal/Haldol to help with clarity of thought process. 06/25/2024: Continue current regimen. Noted team may consider adding Risperdal or Haldol. 06/26/24: Haldol 5 mg bid EEG B12, Folate, TSH, A1c 06/27/24: Continue treatment 06/28/24: Continue treatment 06/29/24: Continue treatment 06/30/24: Continue treatment Reason for continued inpatient stay Substantial Risk for: rapid decompensation Time Spent With Patient Time: Total time managing care of this patient today ____ minutes.
[2024-06-30] MEDS: hydrOXYzine HCL 25 MG TABLET PO (18:42)
[2024-06-30 20:00] VITALS: BP 112/69; PULSE 66; TEMP 36.1; O2SAT 99
[2024-06-30] MEDS: OLANZapine ODT 10 MG TAB.RAPDIS 20 MG TRANSLINGU (20:59)
[2024-07-01] MEDS: LORazepam 1 MG TABLET PO ×2 (05:14→15:18)
--- NOTE | 2024-07-01 05:22 | PC.NURSE ---
Patient up at 0500 c/o anxiety. Medicated with 1 mg lorazepam. Will monitor for effect.
[2024-07-01 08:00] VITALS: BP 129/70; PULSE 96; RESP 16; TEMP 36.6; O2SAT 99
[2024-07-01] MEDS: Acetaminophen 325 MG TABLET 650 MG PO (08:40)
[2024-07-01] MEDS: Haloperidol Lactate Oral Conc 10 MG/5 ML ORAL.CONC 5 MG PO ×2 (08:41→20:20)
[2024-07-01] MEDS: OLANZapine 5 MG TABLET PO ×2 (08:48→18:16)
--- NOTE | 2024-07-01 10:14 | HO.PSYCHPN ---
Subjective Subjective Date of Service: 07/01/24 Reason For Visit: Crisis Interim History: Discussed in team. Patient seen. Reports he is doing well today. He is tolerating medications well. Denies SI. Denies side effects. Appears anxious and preoccupied at times. Reports AH but the medication helps with them. Review of Systems Review of Systems Unremarkable Yes all other systems are reviewed and are negative and Unobtainable due to mental status Mental Status Exam Mental Status Exam Narrative: casually dressed. One-to-one staff in place. In the milieu. Is guarded. Denies feeling depressed. Denies SI or HI. Is paranoid and bizarre delusions. Some grandiosity. Insight and judgment limited Patient Appearance: Appropriate Patient Orientation: Person Level of Consciousness: Alert Patient Behavior: Talkative, Avoidant and Distractible Mood Description: Constricted, Fearful and Blunted Affect Description: Constricted and Blunted Patient Cognition Impaired: Yes Ability to Follow Directions: Fair Speech Pattern: Spontaneous Speech Memory Description: Remote Impaired and Episodic Impaired Diagnostics Vital Signs (24Hr): Vital Signs - 24 hr 06/30/24 20:00 07/01/24 08:00 Temperature 97.0 F 97.8 F Pulse Rate 66 96 Respiratory Rate 16 Blood Pressure 112/69 129/70 Pulse Oximetry 99 99 Oxygen Delivery Method Room Air Room Air BMI result Body Mass Index 21.8 Labs 06/19/24 14:28 06/19/24 17:49 Imaging Radiology Impressions: ITS Impressions Head CT 06/19/24 16:14 IMPRESSION: No acute intracranial abnormality including hemorrhage, mass effect, hydrocephalus, or acute territorial edematous infarction. Chest X-Ray 06/19/24 16:50 IMPRESSION: No acute cardiopulmonary disease. Medications Medications Current Medications Acetaminophen (Acetaminophen 325 Mg Tablet) 650 mg PO Q6H PRN PRN Reason: Headache/Pain Mild Scale (1-3) Last Admin: 07/01/24 08:40 Dose: 650 mg Al Hydroxide/Mg Hydroxide (Magnesium Hydrox/Alum Hydrox 30 Ml Oral.Susp) 30 ml PO Q6H PRN PRN Reason: Heartburn/Nausea Haloperidol Lactate (Haloperidol Lactate Oral Conc 10 Mg/5 Ml Oral.Conc) 5 mg PO BID [facility] Last Admin: 07/01/24 08:41 Dose: 5 mg Hydroxyzine HCl (Hydroxyzine Hcl 25 Mg Tablet) 25 mg PO Q6H PRN PRN Reason: Anxiety Last Admin: 06/30/24 18:42 Dose: 25 mg Lorazepam (Lorazepam 1 Mg Tablet) 1 mg PO Q4H PRN PRN Reason: anxiety, agitation Last Admin: 07/01/24 05:14 Dose: 1 mg Magnesium Hydroxide (Milk Of Magnesia 30 Ml Oral.Susp) 30 ml PO DAILY PRN PRN Reason: Constipation Nicotine Polacrilex (Nicotine Polacrilex 2 Mg Gum) 4 mg BUCCAL Q2H PRN PRN Reason: Nicotine Cravings Olanzapine (Olanzapine 5 Mg Tablet) 5 mg PO TID PRN PRN Reason: psychosis, agitation Last Admin: 07/01/24 08:48 Dose: 5 mg Olanzapine (Olanzapine Odt 10 Mg Tab.Rapdis) 20 mg TRANSLINGU BEDTIME [facility] Last Admin: 06/30/24 20:59 Dose: 20 mg Trazodone HCl (Trazodone Hcl 50 Mg Tablet) 50 mg PO BEDTIME MRX1 PRN PRN Reason: Insomnia Last Admin: 06/28/24 23:46 Dose: 50 mg Allergies Allergies Allergy/AdvReac Type Severity Reaction Status Date / Time No Known Drug Allergies Allergy Mild NONE Verified 06/27/24 15:25 [NO KNOWN DRUG ALLERGIES] Assessment & Plan Assessment & Plan (1) Acute psychosis: Status: Acute Code(s): F23 - Brief psychotic disorder (2) Cannabis use disorder: Status: Acute Code(s): F12.90 - Cannabis use, unspecified, uncomplicated Plan Acute Psychosis, Cannabis Use Disorder Plan 1. Admit, CV, one to one 2. Medical monitoring, elevated WBC, T 97.2 100.7 99.6 this evening, elevated BP/P 3. Olanzapine 20 mg HS and prn 4. Lorazepam 1 mg po q4h prn anxiety, agitation 5. Collateral contact 06/23/24: Continue regime, ?need to add Risperdal/Haldol to help with clarity of thought process. 06/25/2024: Continue current regimen. Noted team may consider adding Risperdal or Haldol. 06/26/24: Haldol 5 mg bid EEG B12, Folate, TSH, A1c 06/27/24: Continue treatment 06/28/24: Continue treatment 06/29/24: Continue treatment 06/30/24: Continue treatment 8/10: continue current management and treatment plan. Reason for continued inpatient stay Substantial Risk for: harm to others, inability to function and rapid decompensation Time Spent With Patient Time: Total time managing care of this patient today ____ minutes.
[2024-07-01] MEDS: hydrOXYzine HCL 25 MG TABLET PO (12:24)
[2024-07-01 20:00] VITALS: BP 116/59; PULSE 78; RESP 16; TEMP 36.3; O2SAT 98
[2024-07-01] MEDS: OLANZapine ODT 10 MG TAB.RAPDIS 20 MG TRANSLINGU (20:20)
[2024-07-02 07:45] VITALS: BP 138/81; PULSE 93; RESP 14; TEMP 37.1; O2SAT 99
[2024-07-02] MEDS: LORazepam 1 MG TABLET PO ×2 (07:53→18:48)
[2024-07-02] MEDS: OLANZapine 5 MG TABLET PO ×2 (07:53→18:48)
[2024-07-02] MEDS: Haloperidol Lactate Oral Conc 10 MG/5 ML ORAL.CONC 5 MG PO ×2 (07:53→21:54)
--- NOTE | 2024-07-02 10:24 | HO.PSYCHPN ---
Subjective Subjective Date of Service: 07/02/24 Reason For Visit: Crisis Interim History: Discussed in team. Patient seen. Patient has been journaling and writing to proces the events that brought him into the hospital. Shares a page he wrote to his family reflecting on those events. Feels remorse. Says he misses his family. Reports he is doing well today. Medications helping his hallucinations. He is tolerating medications well. Denies SI. Denies side effects. Appears anxious and preoccupied at times. Reports AH but the medication helps with them. Review of Systems Review of Systems Unremarkable Yes all other systems are reviewed and are negative and Unobtainable due to mental status Mental Status Exam Mental Status Exam Narrative: casually dressed. One-to-one staff in place. In the milieu. Is guarded. Denies feeling depressed. Denies SI or HI. Is paranoid and bizarre delusions. Some grandiosity. Insight and judgment limited Patient Appearance: Appropriate Patient Orientation: Person Level of Consciousness: Alert Patient Behavior: Talkative, Avoidant and Distractible Mood Description: Constricted, Fearful and Blunted Affect Description: Constricted and Blunted Patient Cognition Impaired: Yes Ability to Follow Directions: Fair Speech Pattern: Spontaneous Speech Memory Description: Remote Impaired and Episodic Impaired Diagnostics Vital Signs (24Hr): Vital Signs - 24 hr 07/01/24 20:00 07/02/24 07:45 Temperature 97.4 F 98.7 F Pulse Rate 78 93 Respiratory Rate 16 14 Blood Pressure 116/59 L 138/81 Pulse Oximetry 98 99 Oxygen Delivery Method Room Air Room Air BMI result Body Mass Index 21.8 Labs 06/19/24 14:28 06/19/24 17:49 Imaging Radiology Impressions: ITS Impressions Head CT 06/19/24 16:14 IMPRESSION: No acute intracranial abnormality including hemorrhage, mass effect, hydrocephalus, or acute territorial edematous infarction. Chest X-Ray 06/19/24 16:50 IMPRESSION: No acute cardiopulmonary disease. Medications Medications Current Medications Acetaminophen (Acetaminophen 325 Mg Tablet) 650 mg PO Q6H PRN PRN Reason: Headache/Pain Mild Scale (1-3) Last Admin: 07/01/24 08:40 Dose: 650 mg Al Hydroxide/Mg Hydroxide (Magnesium Hydrox/Alum Hydrox 30 Ml Oral.Susp) 30 ml PO Q6H PRN PRN Reason: Heartburn/Nausea Haloperidol Lactate (Haloperidol Lactate Oral Conc 10 Mg/5 Ml Oral.Conc) 5 mg PO BID [facility] Last Admin: 07/02/24 07:53 Dose: 5 mg Hydroxyzine HCl (Hydroxyzine Hcl 25 Mg Tablet) 25 mg PO Q6H PRN PRN Reason: Anxiety Last Admin: 07/01/24 12:24 Dose: 25 mg Lorazepam (Lorazepam 1 Mg Tablet) 1 mg PO Q4H PRN PRN Reason: anxiety, agitation Last Admin: 07/02/24 07:53 Dose: 1 mg Magnesium Hydroxide (Milk Of Magnesia 30 Ml Oral.Susp) 30 ml PO DAILY PRN PRN Reason: Constipation Nicotine Polacrilex (Nicotine Polacrilex 2 Mg Gum) 4 mg BUCCAL Q2H PRN PRN Reason: Nicotine Cravings Olanzapine (Olanzapine 5 Mg Tablet) 5 mg PO TID PRN PRN Reason: psychosis, agitation Last Admin: 07/02/24 07:53 Dose: 5 mg Olanzapine (Olanzapine Odt 10 Mg Tab.Rapdis) 20 mg TRANSLINGU BEDTIME [facility] Last Admin: 07/01/24 20:20 Dose: 20 mg Trazodone HCl (Trazodone Hcl 50 Mg Tablet) 50 mg PO BEDTIME MRX1 PRN PRN Reason: Insomnia Last Admin: 06/28/24 23:46 Dose: 50 mg Allergies Allergies Allergy/AdvReac Type Severity Reaction Status Date / Time No Known Drug Allergies Allergy Mild NONE Verified 06/27/24 15:25 [NO KNOWN DRUG ALLERGIES] Assessment & Plan Assessment & Plan (1) Acute psychosis: Status: Acute Code(s): F23 - Brief psychotic disorder (2) Cannabis use disorder: Status: Acute Code(s): F12.90 - Cannabis use, unspecified, uncomplicated Plan Acute Psychosis, Cannabis Use Disorder Plan 1. Admit, CV, one to one 2. Medical monitoring, elevated WBC, T 97.2 100.7 99.6 this evening, elevated BP/P 3. Olanzapine 20 mg HS and prn 4. Lorazepam 1 mg po q4h prn anxiety, agitation 5. Collateral contact 06/23/24: Continue regime, ?need to add Risperdal/Haldol to help with clarity of thought process. 06/25/2024: Continue current regimen. Noted team may consider adding Risperdal or Haldol. 06/26/24: Haldol 5 mg bid EEG B12, Folate, TSH, A1c 06/27/24: Continue treatment 06/28/24: Continue treatment 06/29/24: Continue treatment 06/30/24: Continue treatment 07/01: continue current management and treatment plan. 07/02: continue current management and treatment plan. Reason for continued inpatient stay Substantial Risk for: harm to others, inability to function and rapid decompensation Time Spent With Patient Time: Total time managing care of this patient today ____ minutes.
[2024-07-02] MEDS: Acetaminophen 325 MG TABLET 650 MG PO ×2 (13:03→22:03)
[2024-07-02] MEDS: hydrOXYzine HCL 25 MG TABLET PO (14:23)
[2024-07-02 20:00] VITALS: BP 159/98; PULSE 97; TEMP 36.7; O2SAT 100
[2024-07-02] MEDS: OLANZapine ODT 10 MG TAB.RAPDIS 20 MG TRANSLINGU (21:53)
[2024-07-03 08:00] VITALS: BP 144/82; PULSE 104; RESP 18; TEMP 36.7; O2SAT 99
[2024-07-03] MEDS: Haloperidol Lactate Oral Conc 10 MG/5 ML ORAL.CONC 5 MG PO ×2 (08:45→20:07)
[2024-07-03] MEDS: Acetaminophen 325 MG TABLET 650 MG PO (09:49)
--- NOTE | 2024-07-03 10:01 | HO.PSYCHPN ---
Subjective Subjective Date of Service: 07/03/24 Reason For Visit: Crisis Subjective Notes: Conditional Voluntary Interim History: Pt slept through the night. He denies SI/HI. He also denies VH/AH- no overt delusional or psychosis noted. He asks if he can get his phone to contact friends on FB. No behavioral concerns. Review of Systems Review of Systems Unremarkable Yes all other systems are reviewed and are negative and Unobtainable due to mental status Mental Status Exam Mental Status Exam Narrative: Appearance: wearing hospital gown, fair hygiene, in NAD Behavior: cooperative and friendly Psychomotor; no agitation or retardation noted Speech: clear, normal rate/rhythm/volume, spontaneous TP: linear TC: feeling better Mood: okay Affect: congruent, somewhat constricted Si: denies HI: denies VH/AH: no overt signs Delusions: no overt delusional content noted or reported Insight/judgment: fair x 2. memory/cog: alert oriented x 3. grossly intact to conversational testing Diagnostics Vital Signs (24Hr): Vital Signs - 24 hr 07/02/24 20:00 07/03/24 08:00 Temperature 98.1 F 98.1 F Pulse Rate 97 104 H Respiratory Rate 18 Blood Pressure 159/98 H 144/82 H Pulse Oximetry 100 99 Oxygen Delivery Method Room Air Room Air BMI result Body Mass Index 21.8 Labs 06/19/24 14:28 06/19/24 17:49 Imaging Radiology Impressions: ITS Impressions Head CT 06/19/24 16:14 IMPRESSION: No acute intracranial abnormality including hemorrhage, mass effect, hydrocephalus, or acute territorial edematous infarction. Chest X-Ray 06/19/24 16:50 IMPRESSION: No acute cardiopulmonary disease. Medications Medications Current Medications Acetaminophen (Acetaminophen 325 Mg Tablet) 650 mg PO Q6H PRN PRN Reason: Headache/Pain Mild Scale (1-3) Last Admin: 07/03/24 09:49 Dose: 650 mg Al Hydroxide/Mg Hydroxide (Magnesium Hydrox/Alum Hydrox 30 Ml Oral.Susp) 30 ml PO Q6H PRN PRN Reason: Heartburn/Nausea Haloperidol Lactate (Haloperidol Lactate Oral Conc 10 Mg/5 Ml Oral.Conc) 5 mg PO BID [facility] Last Admin: 07/03/24 08:45 Dose: 5 mg Hydroxyzine HCl (Hydroxyzine Hcl 25 Mg Tablet) 25 mg PO Q6H PRN PRN Reason: Anxiety Last Admin: 07/02/24 14:23 Dose: 25 mg Lorazepam (Lorazepam 1 Mg Tablet) 1 mg PO Q4H PRN PRN Reason: anxiety, agitation Last Admin: 07/02/24 18:48 Dose: 1 mg Magnesium Hydroxide (Milk Of Magnesia 30 Ml Oral.Susp) 30 ml PO DAILY PRN PRN Reason: Constipation Nicotine Polacrilex (Nicotine Polacrilex 2 Mg Gum) 4 mg BUCCAL Q2H PRN PRN Reason: Nicotine Cravings Olanzapine (Olanzapine 5 Mg Tablet) 5 mg PO TID PRN PRN Reason: psychosis, agitation Last Admin: 07/02/24 18:48 Dose: 5 mg Olanzapine (Olanzapine Odt 10 Mg Tab.Rapdis) 20 mg TRANSLINGU BEDTIME [facility] Last Admin: 07/02/24 21:53 Dose: 20 mg Trazodone HCl (Trazodone Hcl 50 Mg Tablet) 50 mg PO BEDTIME MRX1 PRN PRN Reason: Insomnia Last Admin: 06/28/24 23:46 Dose: 50 mg Allergies Allergies Allergy/AdvReac Type Severity Reaction Status Date / Time No Known Drug Allergies Allergy Mild NONE Verified 06/27/24 15:25 [NO KNOWN DRUG ALLERGIES] Assessment & Plan Assessment & Plan (1) Acute psychosis: Status: Acute Code(s): F23 - Brief psychotic disorder (2) Cannabis use disorder: Status: Acute Code(s): F12.90 - Cannabis use, unspecified, uncomplicated Plan Acute Psychosis, Cannabis Use Disorder Plan 1. Admit, CV, one to one 2. Medical monitoring, elevated WBC, T 97.2 100.7 99.6 this evening, elevated BP/P 3. Olanzapine 20 mg HS and prn 4. Lorazepam 1 mg po q4h prn anxiety, agitation 5. Collateral contact 06/23/24: Continue regime, ?need to add Risperdal/Haldol to help with clarity of thought process. 06/25/2024: Continue current regimen. Noted team may consider adding Risperdal or Haldol. 06/26/24: Haldol 5 mg bid EEG B12, Folate, TSH, A1c 06/27/24: Continue treatment 06/28/24: Continue treatment 06/29/24: Continue treatment 06/30/24: Continue treatment 07/01: continue current management and treatment plan. 07/02: continue current management and treatment plan. 07/03 continue tx. Reason for continued inpatient stay Substantial Risk for: harm to others and inability to function Time Spent With Patient Time: Total time managing care of this patient today ____ minutes.
[2024-07-03] MEDS: LORazepam 1 MG TABLET PO (14:52)
[2024-07-03 20:00] VITALS: BP 139/81; PULSE 91; RESP 16; TEMP 36.7; O2SAT 98
[2024-07-03] MEDS: OLANZapine ODT 10 MG TAB.RAPDIS 20 MG TRANSLINGU (20:07)
[2024-07-03] MEDS: traZODone HCL 50 MG TABLET PO (20:11)
[2024-07-04] MEDS: hydrOXYzine HCL 25 MG TABLET PO ×2 (06:06→13:31)
[2024-07-04 08:00] VITALS: BP 129/75; PULSE 106; RESP 16; TEMP 36.1; O2SAT 96
[2024-07-04] MEDS: Haloperidol Lactate Oral Conc 10 MG/5 ML ORAL.CONC 5 MG PO ×2 (08:12→21:18)
[2024-07-04] MEDS: Acetaminophen 325 MG TABLET 650 MG PO (08:12)
[2024-07-04] MEDS: OLANZapine 5 MG TABLET PO (08:18)
[2024-07-04] MEDS: LORazepam 1 MG TABLET PO (15:31)
[2024-07-04 20:00] VITALS: BP 132/64; PULSE 80; RESP 16; TEMP 36.7; O2SAT 97
[2024-07-04] MEDS: OLANZapine ODT 10 MG TAB.RAPDIS 20 MG TRANSLINGU (21:18)
[2024-07-05] MEDS: hydrOXYzine HCL 25 MG TABLET PO (06:47)
[2024-07-05 08:00] VITALS: BP 131/70; PULSE 91; RESP 16; TEMP 36.6; O2SAT 98
[2024-07-05] MEDS: Haloperidol Lactate Oral Conc 10 MG/5 ML ORAL.CONC 5 MG PO ×2 (08:33→21:01)
--- NOTE | 2024-07-05 10:56 | HO.PSYCHPN ---
Subjective Subjective Date of Service: 07/04/24 Reason For Visit: Crisis Subjective Notes: Conditional Voluntary Interim History: Pt slept through the night. He is taking medications as prescribed. Pt more forthcoming in terms of auditory hallucination in that he states that others here on the unit are talking about him. He reports they are whispering but he can hear them and does not think this is a psychiatric symptom. He denies SI/HI. He does state that people talk less about him since he has been here. He also told SW- and confirmed with this advertising writer ideas of reference thinking that TV may be sending messages to him. He is not sure why he is being targeted. No behavioral concerns. Pt is pleasant on approach. Review of Systems Review of Systems Unremarkable Yes all other systems are reviewed and are negative and Unobtainable due to mental status Mental Status Exam Mental Status Exam Narrative: Appearance: wearing hospital gown, fair hygiene, in NAD Behavior: cooperative and friendly Psychomotor; no agitation or retardation noted Speech: clear, normal rate/rhythm/volume, spontaneous TP: linear TC: feeling better Mood: okay Affect: congruent, somewhat constricted Si: denies HI: denies VH/AH: no overt signs Delusions: no overt delusional content noted or reported Insight/judgment: fair x 2. memory/cog: alert oriented x 3. grossly intact to conversational testing Diagnostics Vital Signs (24Hr): Vital Signs - 24 hr 07/04/24 20:00 07/05/24 08:00 Temperature 98.1 F 98 F Pulse Rate 80 91 Respiratory Rate 16 16 Blood Pressure 132/64 131/70 Pulse Oximetry 97 98 Oxygen Delivery Method Room Air Room Air BMI result Body Mass Index 21.8 Labs 06/19/24 14:28 06/19/24 17:49 Imaging Radiology Impressions: ITS Impressions Head CT 06/19/24 16:14 IMPRESSION: No acute intracranial abnormality including hemorrhage, mass effect, hydrocephalus, or acute territorial edematous infarction. Chest X-Ray 06/19/24 16:50 IMPRESSION: No acute cardiopulmonary disease. Medications Medications Current Medications Acetaminophen (Acetaminophen 325 Mg Tablet) 650 mg PO Q6H PRN PRN Reason: Headache/Pain Mild Scale (1-3) Last Admin: 07/04/24 08:12 Dose: 650 mg Al Hydroxide/Mg Hydroxide (Magnesium Hydrox/Alum Hydrox 30 Ml Oral.Susp) 30 ml PO Q6H PRN PRN Reason: Heartburn/Nausea Haloperidol Lactate (Haloperidol Lactate Oral Conc 10 Mg/5 Ml Oral.Conc) 5 mg PO BID [facility] Last Admin: 07/05/24 08:33 Dose: 5 mg Hydroxyzine HCl (Hydroxyzine Hcl 25 Mg Tablet) 25 mg PO Q6H PRN PRN Reason: Anxiety Last Admin: 07/05/24 06:47 Dose: 25 mg Lorazepam (Lorazepam 1 Mg Tablet) 1 mg PO Q4H PRN PRN Reason: anxiety, agitation Last Admin: 07/04/24 15:31 Dose: 1 mg Magnesium Hydroxide (Milk Of Magnesia 30 Ml Oral.Susp) 30 ml PO DAILY PRN PRN Reason: Constipation Nicotine Polacrilex (Nicotine Polacrilex 2 Mg Gum) 4 mg BUCCAL Q2H PRN PRN Reason: Nicotine Cravings Olanzapine (Olanzapine 5 Mg Tablet) 5 mg PO TID PRN PRN Reason: psychosis, agitation Last Admin: 07/04/24 08:18 Dose: 5 mg Olanzapine (Olanzapine Odt 10 Mg Tab.Rapdis) 20 mg TRANSLINGU BEDTIME [facility] Last Admin: 07/04/24 21:18 Dose: 20 mg Trazodone HCl (Trazodone Hcl 50 Mg Tablet) 50 mg PO BEDTIME MRX1 PRN PRN Reason: Insomnia Last Admin: 07/03/24 20:11 Dose: 50 mg Allergies Allergies Allergy/AdvReac Type Severity Reaction Status Date / Time No Known Drug Allergies Allergy Mild NONE Verified 06/27/24 15:25 [NO KNOWN DRUG ALLERGIES] Assessment & Plan Assessment & Plan (1) Acute psychosis: Status: Acute Code(s): F23 - Brief psychotic disorder (2) Cannabis use disorder: Status: Acute Code(s): F12.90 - Cannabis use, unspecified, uncomplicated Plan Acute Psychosis, Cannabis Use Disorder Plan 1. Admit, CV, one to one 2. Medical monitoring, elevated WBC, T 97.2 100.7 99.6 this evening, elevated BP/P 3. Olanzapine 20 mg HS and prn 4. Lorazepam 1 mg po q4h prn anxiety, agitation 5. Collateral contact 06/23/24: Continue regime, ?need to add Risperdal/Haldol to help with clarity of thought process. 06/25/2024: Continue current regimen. Noted team may consider adding Risperdal or Haldol. 06/26/24: Haldol 5 mg bid EEG B12, Folate, TSH, A1c 06/27/24: Continue treatment 06/28/24: Continue treatment 06/29/24: Continue treatment 06/30/24: Continue treatment 07/01: continue current management and treatment plan. 07/02: continue current management and treatment plan. 07/03 continue tx. 07/04 pt calmer, less AH/VH, less paranoid ideas but continues to experince them. May need more time on current regimen to clear. Reason for continued inpatient stay Substantial Risk for: harm to others and inability to function Time Spent With Patient Time: Total time managing care of this patient today ____ minutes.
[2024-07-05] MEDS: LORazepam 1 MG TABLET PO (11:47)
[2024-07-05] MEDS: OLANZapine 5 MG TABLET PO (11:47)
--- NOTE | 2024-07-05 16:39 | P.PNPSI_ITS ---
Subjective Subjective Date of Service: 07/05/24 Reason For Visit: Crisis Subjective Notes: Conditional Voluntary Healthcare Proxy: No Guardianship: No Medical Problems Affecting Mental Status: No Interim History: Pt agreed to meet today, I know you are now not working for my mother, I am sorry I thought that, I don't know why I thought that. Discussed with pt, when first admitted that mother had called and I had asked him about talking with her and he had appeared to become frightened. Pt explained that his mom drinks and argues with his step father. When this occurs, problems are created, mother becomes upset, angry and takes it out on my sister and me . That is why I smoke, to be really calm when she gets upset so I don't get angry with her. Discussed [facility] reporting, pt thinks it is a good idea, I don't want my mom to get in trouble, but I want people to know that there are things happening that are causing stress for me. I would never harm any of my family, my mother especially, but that day she was angry and I reacted to her. I would never hurt my family. Reports medicine is helpful and helps him to feel in better control. Discussed parameters of restraining order-he verbalized understanding-discussed needing his phone and some resources from his room as he will begin classes on 07/25/24 and wants to call friends to see if he could live with them upon discharge. Medication Compliance: Yes Side effects from medications: No Attending Groups: Intermittent Review of Systems Acute medical concerns: No Medical Review of Systems: unchanged Review of Systems Review of Systems Yes all other systems are reviewed and are negative Mental Status Exam Mental Status Exam Patient Appearance: Appropriate Patient Orientation: Person, Place, Time and Situation Level of Consciousness: Alert Patient Behavior: Talkative and Good Eye Contact Mood Description: Withdrawn and Appropriate Affect Description: Flat Patient Cognition Impaired: No Ability to Follow Directions: Good Speech Pattern: Spontaneous Speech Memory Description: Episodic Impaired Hallucinations: None Delusions: Present (mild) Thought Process: Rumination Thought Content: positive for Circumstantial and positive for Perseveration Judgement: Fair Diagnostics Vital Signs (24Hr): Vital Signs - 24 hr 07/04/24 20:00 07/05/24 08:00 Temperature 98.1 F 98 F Pulse Rate 80 91 Respiratory Rate 16 16 Blood Pressure 132/64 131/70 Pulse Oximetry 97 98 Oxygen Delivery Method Room Air Room Air BMI result Body Mass Index 21.8 Labs 06/19/24 14:28 06/19/24 17:49 Imaging Radiology Impressions: ITS Impressions Head CT 06/19/24 16:14 IMPRESSION: No acute intracranial abnormality including hemorrhage, mass effect, hydrocephalus, or acute territorial edematous infarction. Chest X-Ray 06/19/24 16:50 IMPRESSION: No acute cardiopulmonary disease. Medications Medications Current Medications Acetaminophen (Acetaminophen 325 Mg Tablet) 650 mg PO Q6H PRN PRN Reason: Headache/Pain Mild Scale (1-3) Last Admin: 07/04/24 08:12 Dose: 650 mg Al Hydroxide/Mg Hydroxide (Magnesium Hydrox/Alum Hydrox 30 Ml Oral.Susp) 30 ml PO Q6H PRN PRN Reason: Heartburn/Nausea Haloperidol Lactate (Haloperidol Lactate Oral Conc 10 Mg/5 Ml Oral.Conc) 5 mg PO BID SADIQ Last Admin: 07/05/24 08:33 Dose: 5 mg Hydroxyzine HCl (Hydroxyzine Hcl 25 Mg Tablet) 25 mg PO Q6H PRN PRN Reason: Anxiety Last Admin: 07/05/24 06:47 Dose: 25 mg Lorazepam (Lorazepam 1 Mg Tablet) 1 mg PO Q4H PRN PRN Reason: anxiety, agitation Last Admin: 07/05/24 11:47 Dose: 1 mg Magnesium Hydroxide (Milk Of Magnesia 30 Ml Oral.Susp) 30 ml PO DAILY PRN PRN Reason: Constipation Nicotine Polacrilex (Nicotine Polacrilex 2 Mg Gum) 4 mg BUCCAL Q2H PRN PRN Reason: Nicotine Cravings Olanzapine (Olanzapine 5 Mg Tablet) 5 mg PO TID PRN PRN Reason: psychosis, agitation Last Admin: 07/05/24 11:47 Dose: 5 mg Olanzapine (Olanzapine Odt 10 Mg Tab.Rapdis) 20 mg TRANSLINGU BEDTIME SADIQ Last Admin: 07/04/24 21:18 Dose: 20 mg Trazodone HCl (Trazodone Hcl 50 Mg Tablet) 50 mg PO BEDTIME MRX1 PRN PRN Reason: Insomnia Last Admin: 07/03/24 20:11 Dose: 50 mg Allergies Allergies Allergy/AdvReac Type Severity Reaction Status Date / Time No Known Drug Allergies Allergy Mild NONE Verified 06/27/24 15:25 [NO KNOWN DRUG ALLERGIES] Assessment & Plan Assessment & Plan (1) Acute psychosis: Status: Acute Code(s): F23 - Brief psychotic disorder (2) Cannabis use disorder: Status: Acute Code(s): F12.90 - Cannabis use, unspecified, uncomplicated Plan Acute Psychosis, Cannabis Use Disorder Plan 1. Admit, CV, one to one 2. Medical monitoring, elevated WBC, T 97.2 100.7 99.6 this evening, elevated BP/P 3. Olanzapine 20 mg HS and prn 4. Lorazepam 1 mg po q4h prn anxiety, agitation 5. Collateral contact 06/23/24: Continue regime, ?need to add Risperdal/Haldol to help with clarity of thought process. 06/25/2024: Continue current regimen. Noted team may consider adding Risperdal or Haldol. 06/26/24: Haldol 5 mg bid EEG B12, Folate, TSH, A1c 06/27/24: Continue treatment 06/28/24: Continue treatment 06/29/24: Continue treatment 06/30/24: Continue treatment 07/01: continue current management and treatment plan. 07/02: continue current management and treatment plan. 07/03 continue tx. 07/04 pt calmer, less AH/VH, less paranoid ideas but continues to experince them. May need more time on current regimen to clear. 07/05 continues with improvement, increase discharge planning activities and his active involvement in making arrangements. Patient educated on: medication risk/benefits and therapeutic strategies Reason for continued inpatient stay Substantial Risk for: rapid decompensation Time Spent With Patient Time: Total time managing care of this patient today ____ minutes.
[2024-07-05] MEDS: Acetaminophen 325 MG TABLET 650 MG PO (16:50)
[2024-07-05 19:49] VITALS: BP 120/56; PULSE 87; RESP 16; TEMP 36.9; O2SAT 97
[2024-07-05] MEDS: traZODone HCL 50 MG TABLET PO (21:01)
[2024-07-05] MEDS: OLANZapine ODT 10 MG TAB.RAPDIS 20 MG TRANSLINGU (21:01)
[2024-07-05 22:05] LABS: IDNOW Serial# 58CA691E; Strep A Nucleic Acid Negative (Negative)
[2024-07-06] MEDS: hydrOXYzine HCL 25 MG TABLET PO ×2 (06:55→14:34)
[2024-07-06] MEDS: LORazepam 1 MG TABLET PO ×2 (06:55→13:01)
[2024-07-06 07:00] VITALS: BMI 22.8
[2024-07-06 08:00] VITALS: BP 126/68; PULSE 112; RESP 18; TEMP 36.4; O2SAT 97
[2024-07-06] MEDS: Haloperidol Lactate Oral Conc 10 MG/5 ML ORAL.CONC 5 MG PO ×2 (09:13→20:45)
[2024-07-06] MEDS: OLANZapine 5 MG TABLET PO (13:01)
--- NOTE | 2024-07-06 15:39 | HO.PSYCHPN ---
Subjective Subjective Date of Service: 07/06/24 Reason For Visit: Crisis Subjective Notes: Conditional Voluntary Healthcare Proxy: No Guardianship: No Medical Problems Affecting Mental Status: No Interim History: Spoke with mother x 2. She will gather belongings for pt and leave them at the [facility] help desk technician of the hospital she reports. She is concerned about his progress but does not want him to return home. She would like ongoing updates. She reports probation has been in contact with her. Pt reports he is feeling well, but anxious as he is beginning to plan housing and living arrangements post discharge. Medication Compliance: Yes Side effects from medications: No Attending Groups: Intermittent (less so per team) Review of Systems Acute medical concerns: No Medical Review of Systems: unchanged Review of Systems Review of Systems Yes all other systems are reviewed and are negative Mental Status Exam Mental Status Exam Patient Appearance: Appropriate Patient Orientation: Person, Place, Time and Situation Level of Consciousness: Alert Patient Behavior: Talkative and Good Eye Contact Mood Description: Withdrawn and Appropriate Affect Description: Flat Patient Cognition Impaired: No Ability to Follow Directions: Good Speech Pattern: Spontaneous Speech Memory Description: Episodic Impaired Hallucinations: None Delusions: Present (mild) Thought Process: Rumination Thought Content: positive for Circumstantial and positive for Perseveration Judgement: Fair Diagnostics Vital Signs (24Hr): Vital Signs - 24 hr 07/05/24 19:49 07/06/24 08:00 Temperature 98.4 F 97.6 F Pulse Rate 87 112 H Respiratory Rate 16 18 Blood Pressure 120/56 L 126/68 Pulse Oximetry 97 97 Oxygen Delivery Method Room Air Room Air BMI result Body Mass Index 22.8 Labs 06/19/24 14:28 06/19/24 17:49 Labs: Laboratory Results - last 48 hr 07/05/24 21:35 S. pyogenes GrpA KELTON Negative Imaging Radiology Impressions: ITS Impressions Head CT 06/19/24 16:14 IMPRESSION: No acute intracranial abnormality including hemorrhage, mass effect, hydrocephalus, or acute territorial edematous infarction. Chest X-Ray 06/19/24 16:50 IMPRESSION: No acute cardiopulmonary disease. Medications Medications Current Medications Acetaminophen (Acetaminophen 325 Mg Tablet) 650 mg PO Q6H PRN PRN Reason: Headache/Pain Mild Scale (1-3) Last Admin: 07/05/24 16:50 Dose: 650 mg Al Hydroxide/Mg Hydroxide (Magnesium Hydrox/Alum Hydrox 30 Ml Oral.Susp) 30 ml PO Q6H PRN PRN Reason: Heartburn/Nausea Haloperidol Lactate (Haloperidol Lactate Oral Conc 10 Mg/5 Ml Oral.Conc) 5 mg PO BID [facility] Last Admin: 07/06/24 09:13 Dose: 5 mg Hydroxyzine HCl (Hydroxyzine Hcl 25 Mg Tablet) 25 mg PO Q6H PRN PRN Reason: Anxiety Last Admin: 07/06/24 14:34 Dose: 25 mg Lorazepam (Lorazepam 1 Mg Tablet) 1 mg PO Q4H PRN PRN Reason: anxiety, agitation Last Admin: 07/06/24 13:01 Dose: 1 mg Magnesium Hydroxide (Milk Of Magnesia 30 Ml Oral.Susp) 30 ml PO DAILY PRN PRN Reason: Constipation Nicotine Polacrilex (Nicotine Polacrilex 2 Mg Gum) 4 mg BUCCAL Q2H PRN PRN Reason: Nicotine Cravings Olanzapine (Olanzapine 5 Mg Tablet) 5 mg PO TID PRN PRN Reason: psychosis, agitation Last Admin: 07/06/24 13:01 Dose: 5 mg Olanzapine (Olanzapine Odt 10 Mg Tab.Rapdis) 20 mg TRANSLINGU BEDTIME [facility] Last Admin: 07/05/24 21:01 Dose: 20 mg Trazodone HCl (Trazodone Hcl 50 Mg Tablet) 50 mg PO BEDTIME MRX1 PRN PRN Reason: Insomnia Last Admin: 07/05/24 21:01 Dose: 50 mg Allergies Allergies Allergy/AdvReac Type Severity Reaction Status Date / Time No Known Drug Allergies Allergy Mild NONE Verified 06/27/24 15:25 [NO KNOWN DRUG ALLERGIES] Assessment & Plan Assessment & Plan (1) Acute psychosis: Status: Acute Code(s): F23 - Brief psychotic disorder (2) Cannabis use disorder: Status: Acute Code(s): F12.90 - Cannabis use, unspecified, uncomplicated Plan Acute Psychosis, Cannabis Use Disorder Plan 1. Admit, CV, one to one 2. Medical monitoring, elevated WBC, T 97.2 100.7 99.6 this evening, elevated BP/P 3. Olanzapine 20 mg HS and prn 4. Lorazepam 1 mg po q4h prn anxiety, agitation 5. Collateral contact 06/23/24: Continue regime, ?need to add Risperdal/Haldol to help with clarity of thought process. 06/25/2024: Continue current regimen. Noted team may consider adding Risperdal or Haldol. 06/26/24: Haldol 5 mg bid EEG B12, Folate, TSH, A1c 06/27/24: Continue treatment 06/28/24: Continue treatment 06/29/24: Continue treatment 06/30/24: Continue treatment 07/01: continue current management and treatment plan. 07/02: continue current management and treatment plan. 07/03 continue tx. 07/04 pt calmer, less AH/VH, less paranoid ideas but continues to experince them. May need more time on current regimen to clear. 07/06 pt moving toward discharge family will gather belongings from home and leave them at the ict help desk technician for pt. Reason for continued inpatient stay Substantial Risk for: rapid decompensation Time Spent With Patient Time: Total time managing care of this patient today ____ minutes.
[2024-07-06 20:00] VITALS: BP 137/62; PULSE 83; RESP 18; TEMP 36.9; O2SAT 98
[2024-07-06] MEDS: OLANZapine ODT 10 MG TAB.RAPDIS 20 MG TRANSLINGU (20:46)
[2024-07-07] MEDS: Acetaminophen 325 MG TABLET 650 MG PO (06:04)
[2024-07-07 08:13] VITALS: BP 134/60; PULSE 85; RESP 18; TEMP 36.9; O2SAT 98
[2024-07-07] MEDS: Haloperidol Lactate Oral Conc 10 MG/5 ML ORAL.CONC 5 MG PO ×2 (09:13→20:54)
[2024-07-07] MEDS: OLANZapine 5 MG TABLET PO (10:12)
--- NOTE | 2024-07-07 11:48 | HO.PSYCHPN ---
Subjective Subjective Date of Service: 07/07/24 Reason For Visit: Crisis Subjective Notes: Conditional Voluntary Healthcare Proxy: No Guardianship: No Medical Problems Affecting Mental Status: No Interim History: Denies SI/HI/AH/VH. Working on housing, discharge planning with team. Team reports he has more anxiety, is more withdrawn and is going to fewer groups. He admits that he is anxious about the changes he has to make upon discharge to his living situation. Medication Compliance: Yes Side effects from medications: No Attending Groups: Intermittent Review of Systems Acute medical concerns: No Medical Review of Systems: unchanged Review of Systems Review of Systems Yes all other systems are reviewed and are negative Mental Status Exam Mental Status Exam Patient Appearance: Appropriate Patient Orientation: Person, Place, Time and Situation Level of Consciousness: Alert Patient Behavior: Talkative and Good Eye Contact Mood Description: Withdrawn and Appropriate Affect Description: Flat Patient Cognition Impaired: No Ability to Follow Directions: Good Speech Pattern: Spontaneous Speech Memory Description: Episodic Impaired Hallucinations: None Delusions: Present (mild) Thought Process: Rumination Thought Content: positive for Circumstantial and positive for Perseveration Judgement: Fair Diagnostics Vital Signs (24Hr): Vital Signs - 24 hr 07/06/24 20:00 07/07/24 08:13 Temperature 98.4 F 98.4 F Pulse Rate 83 85 Respiratory Rate 18 18 Blood Pressure 137/62 134/60 Pulse Oximetry 98 98 Oxygen Delivery Method Room Air Room Air BMI result Body Mass Index 22.8 Labs 06/19/24 14:28 06/19/24 17:49 Labs: Laboratory Results - last 48 hr 07/05/24 21:35 S. pyogenes GrpA [facility] Negative Imaging Radiology Impressions: ITS Impressions Head CT 06/19/24 16:14 IMPRESSION: No acute intracranial abnormality including hemorrhage, mass effect, hydrocephalus, or acute territorial edematous infarction. Chest X-Ray 06/19/24 16:50 IMPRESSION: No acute cardiopulmonary disease. Medications Medications Current Medications Acetaminophen (Acetaminophen 325 Mg Tablet) 650 mg PO Q6H PRN PRN Reason: Headache/Pain Mild Scale (1-3) Last Admin: 07/07/24 06:04 Dose: 650 mg Al Hydroxide/Mg Hydroxide (Magnesium Hydrox/Alum Hydrox 30 Ml Oral.Susp) 30 ml PO Q6H PRN PRN Reason: Heartburn/Nausea Haloperidol Lactate (Haloperidol Lactate Oral Conc 10 Mg/5 Ml Oral.Conc) 5 mg PO BID SADIQ Last Admin: 07/07/24 09:13 Dose: 5 mg Hydroxyzine HCl (Hydroxyzine Hcl 25 Mg Tablet) 25 mg PO Q6H PRN PRN Reason: Anxiety Last Admin: 07/06/24 14:34 Dose: 25 mg Lorazepam (Lorazepam 1 Mg Tablet) 1 mg PO Q4H PRN PRN Reason: anxiety, agitation Last Admin: 07/06/24 13:01 Dose: 1 mg Magnesium Hydroxide (Milk Of Magnesia 30 Ml Oral.Susp) 30 ml PO DAILY PRN PRN Reason: Constipation Nicotine Polacrilex (Nicotine Polacrilex 2 Mg Gum) 4 mg BUCCAL Q2H PRN PRN Reason: Nicotine Cravings Olanzapine (Olanzapine 5 Mg Tablet) 5 mg PO TID PRN PRN Reason: psychosis, agitation Last Admin: 07/07/24 10:12 Dose: 5 mg Olanzapine (Olanzapine Odt 10 Mg Tab.Rapdis) 20 mg TRANSLINGU BEDTIME SADIQ Last Admin: 07/06/24 20:46 Dose: 20 mg Trazodone HCl (Trazodone Hcl 50 Mg Tablet) 50 mg PO BEDTIME MRX1 PRN PRN Reason: Insomnia Last Admin: 07/05/24 21:01 Dose: 50 mg Allergies Allergies Allergy/AdvReac Type Severity Reaction Status Date / Time No Known Drug Allergies Allergy Mild NONE Verified 06/27/24 15:25 [NO KNOWN DRUG ALLERGIES] Assessment & Plan Assessment & Plan (1) Acute psychosis: Status: Acute Code(s): F23 - Brief psychotic disorder (2) Cannabis use disorder: Status: Acute Code(s): F12.90 - Cannabis use, unspecified, uncomplicated Plan Acute Psychosis, Cannabis Use Disorder Plan 1. Admit, CV, one to one 2. Medical monitoring, elevated WBC, T 97.2 100.7 99.6 this evening, elevated BP/P 3. Olanzapine 20 mg HS and prn 4. Lorazepam 1 mg po q4h prn anxiety, agitation 5. Collateral contact 06/23/24: Continue regime, ?need to add Risperdal/Haldol to help with clarity of thought process. 06/25/2024: Continue current regimen. Noted team may consider adding Risperdal or Haldol. 06/26/24: Haldol 5 mg bid EEG B12, Folate, TSH, A1c 06/27/24: Continue treatment 06/28/24: Continue treatment 06/29/24: Continue treatment 06/30/24: Continue treatment 07/01: continue current management and treatment plan. 07/02: continue current management and treatment plan. 07/03 continue tx. 07/04 pt calmer, less AH/VH, less paranoid ideas but continues to experince them. May need more time on current regimen to clear. 07/05 continues with improvement, increase discharge planning activities and his active involvement in making arrangements. 07/07 discharge planning Reason for continued inpatient stay Substantial Risk for: rapid decompensation Time Spent With Patient Time: Total time managing care of this patient today ____ minutes.
[2024-07-07] MEDS: LORazepam 1 MG TABLET PO (13:21)
[2024-07-07] MEDS: hydrOXYzine HCL 25 MG TABLET PO (14:41)
[2024-07-07 20:00] VITALS: BP 111/56; PULSE 81; RESP 18; TEMP 35.8; O2SAT 97
[2024-07-07] MEDS: OLANZapine ODT 10 MG TAB.RAPDIS 20 MG TRANSLINGU (20:54)
[2024-07-07] MEDS: traZODone HCL 50 MG TABLET PO (20:54)
[2024-07-08 08:20] VITALS: BP 128/69; PULSE 91; RESP 16; TEMP 37; O2SAT 98
[2024-07-08] MEDS: Haloperidol Lactate Oral Conc 10 MG/5 ML ORAL.CONC 5 MG PO ×2 (08:24→20:23)
[2024-07-08] MEDS: Acetaminophen 325 MG TABLET 650 MG PO (09:05)
--- NOTE | 2024-07-08 09:35 | HO.PSYCHPN ---
Subjective Subjective Date of Service: 07/08/24 Reason For Visit: Crisis Subjective Notes: Conditional Voluntary Interim History: Patient was seen and discussed in rounds today. Records and plans were reviewed. He continues to have some anxiety and depression. Affect is constricted. No AVH. He has visible. Eating and sleeping adequately. Minimally social. Attending some groups. Anxious about his future options. No changes were made today Review of Systems Review of Systems Yes all other systems are reviewed and are negative Mental Status Exam Mental Status Exam Patient Appearance: Appropriate Patient Orientation: Person, Place, Time and Situation Level of Consciousness: Alert Patient Behavior: Talkative and Good Eye Contact Mood Description: Withdrawn and Appropriate Affect Description: Flat Patient Cognition Impaired: No Ability to Follow Directions: Good Speech Pattern: Spontaneous Speech Memory Description: Episodic Impaired Hallucinations: None Delusions: Present (mild) Thought Process: Rumination Thought Content: positive for Circumstantial and positive for Perseveration Judgement: Fair Diagnostics Vital Signs (24Hr): Vital Signs - 24 hr 07/07/24 20:00 Temperature 96.4 F L Pulse Rate 81 Respiratory Rate 18 Blood Pressure 111/56 L Pulse Oximetry 97 Oxygen Delivery Method Room Air BMI result Body Mass Index 22.8 Labs 06/19/24 14:28 06/19/24 17:49 Imaging Radiology Impressions: ITS Impressions Head CT 06/19/24 16:14 IMPRESSION: No acute intracranial abnormality including hemorrhage, mass effect, hydrocephalus, or acute territorial edematous infarction. Chest X-Ray 06/19/24 16:50 IMPRESSION: No acute cardiopulmonary disease. Medications Medications Current Medications Acetaminophen (Acetaminophen 325 Mg Tablet) 650 mg PO Q6H PRN PRN Reason: Headache/Pain Mild Scale (1-3) Last Admin: 07/08/24 09:05 Dose: 650 mg Al Hydroxide/Mg Hydroxide (Magnesium Hydrox/Alum Hydrox 30 Ml Oral.Susp) 30 ml PO Q6H PRN PRN Reason: Heartburn/Nausea Haloperidol Lactate (Haloperidol Lactate Oral Conc 10 Mg/5 Ml Oral.Conc) 5 mg PO BID SADIQ Last Admin: 07/08/24 08:24 Dose: 5 mg Hydroxyzine HCl (Hydroxyzine Hcl 25 Mg Tablet) 25 mg PO Q6H PRN PRN Reason: Anxiety Last Admin: 07/07/24 14:41 Dose: 25 mg Lorazepam (Lorazepam 1 Mg Tablet) 1 mg PO Q4H PRN PRN Reason: anxiety, agitation Last Admin: 07/07/24 13:21 Dose: 1 mg Magnesium Hydroxide (Milk Of Magnesia 30 Ml Oral.Susp) 30 ml PO DAILY PRN PRN Reason: Constipation Nicotine Polacrilex (Nicotine Polacrilex 2 Mg Gum) 4 mg BUCCAL Q2H PRN PRN Reason: Nicotine Cravings Olanzapine (Olanzapine 5 Mg Tablet) 5 mg PO TID PRN PRN Reason: psychosis, agitation Last Admin: 07/07/24 10:12 Dose: 5 mg Olanzapine (Olanzapine Odt 10 Mg Tab.Rapdis) 20 mg TRANSLINGU BEDTIME [facility]ADIQ Last Admin: 07/07/24 20:54 Dose: 20 mg Trazodone HCl (Trazodone Hcl 50 Mg Tablet) 50 mg PO BEDTIME MRX1 PRN PRN Reason: Insomnia Last Admin: 07/07/24 20:54 Dose: 50 mg Allergies Allergies Allergy/AdvReac Type Severity Reaction Status Date / Time No Known Drug Allergies Allergy Mild NONE Verified 06/27/24 15:25 [NO KNOWN DRUG ALLERGIES] Assessment & Plan Assessment & Plan (1) Acute psychosis: Status: Acute Code(s): F23 - Brief psychotic disorder (2) Cannabis use disorder: Status: Acute Code(s): F12.90 - Cannabis use, unspecified, uncomplicated Plan Acute Psychosis, Cannabis Use Disorder Plan 1. Admit, CV, one to one 2. Medical monitoring, elevated WBC, T 97.2 100.7 99.6 this evening, elevated BP/P 3. Olanzapine 20 mg HS and prn 4. Lorazepam 1 mg po q4h prn anxiety, agitation 5. Collateral contact 06/23/24: Continue regime, ?need to add Risperdal/Haldol to help with clarity of thought process. 06/25/2024: Continue current regimen. Noted team may consider adding Risperdal or Haldol. 06/26/24: Haldol 5 mg bid EEG B12, Folate, TSH, A1c 06/27/24: Continue treatment 06/28/24: Continue treatment 06/29/24: Continue treatment 06/30/24: Continue treatment 07/01: continue current management and treatment plan. 07/02: continue current management and treatment plan. 07/03 continue tx. 07/04 pt calmer, less AH/VH, less paranoid ideas but continues to experince them. May need more time on current regimen to clear. 07/05 continues with improvement, increase discharge planning activities and his active involvement in making arrangements. 07/07 discharge planning 07/08: Continue current regimen and plans Reason for continued inpatient stay Substantial Risk for: med/psych decompensation Time Spent With Patient Time: Total time managing care of this patient today ____ minutes.
[2024-07-08] MEDS: hydrOXYzine HCL 25 MG TABLET PO (15:35)
[2024-07-08] MEDS: OLANZapine 5 MG TABLET PO (16:03)
[2024-07-08] MEDS: LORazepam 1 MG TABLET PO (16:24)
[2024-07-08 20:00] VITALS: BP 129/76; PULSE 88; TEMP 2.7; TEMP 36.9; O2SAT 98
[2024-07-08] MEDS: OLANZapine ODT 10 MG TAB.RAPDIS 20 MG TRANSLINGU (20:23)
[2024-07-08] MEDS: traZODone HCL 50 MG TABLET PO (20:23)
[2024-07-09 08:40] VITALS: BP 123/74; PULSE 98; RESP 16; TEMP 36.9; O2SAT 96
[2024-07-09] MEDS: Haloperidol Lactate Oral Conc 10 MG/5 ML ORAL.CONC 5 MG PO ×2 (08:44→20:21)
--- NOTE | 2024-07-09 09:05 | HO.PSYCHPN ---
Subjective Subjective Date of Service: 07/09/24 Reason For Visit: Crisis Subjective Notes: Conditional Voluntary Interim History: Patient was seen and discussed in rounds today. Records and plans were reviewed. He continues to be isolative but pleasant and cooperative. Affect is blunted. Eating and sleeping well. He does have some visibility in interaction with others. No side effects. No changes were made Review of Systems Review of Systems Yes all other systems are reviewed and are negative Mental Status Exam Mental Status Exam Patient Appearance: Appropriate Patient Orientation: Person, Place, Time and Situation Level of Consciousness: Alert Patient Behavior: Talkative and Good Eye Contact Mood Description: Withdrawn and Appropriate Affect Description: Flat Patient Cognition Impaired: No Ability to Follow Directions: Good Speech Pattern: Spontaneous Speech Memory Description: Episodic Impaired Hallucinations: None Delusions: Present (mild) Thought Process: Rumination Thought Content: positive for Circumstantial and positive for Perseveration Judgement: Fair Diagnostics Vital Signs (24Hr): Vital Signs - 24 hr 07/08/24 20:00 07/09/24 08:40 Temperature 36.9 F L 98.4 F Pulse Rate 88 98 Respiratory Rate 16 Blood Pressure 129/76 123/74 Pulse Oximetry 98 96 Oxygen Delivery Method Room Air Room Air BMI result Body Mass Index 22.8 Labs 06/19/24 14:28 06/19/24 17:49 Imaging Radiology Impressions: ITS Impressions Head CT 06/19/24 16:14 IMPRESSION: No acute intracranial abnormality including hemorrhage, mass effect, hydrocephalus, or acute territorial edematous infarction. Chest X-Ray 06/19/24 16:50 IMPRESSION: No acute cardiopulmonary disease. Medications Medications Current Medications Acetaminophen (Acetaminophen 325 Mg Tablet) 650 mg PO Q6H PRN PRN Reason: Headache/Pain Mild Scale (1-3) Last Admin: 07/08/24 09:05 Dose: 650 mg Al Hydroxide/Mg Hydroxide (Magnesium Hydrox/Alum Hydrox 30 Ml Oral.Susp) 30 ml PO Q6H PRN PRN Reason: Heartburn/Nausea Haloperidol Lactate (Haloperidol Lactate Oral Conc 10 Mg/5 Ml Oral.Conc) 5 mg PO BID SADIQ Last Admin: 07/09/24 08:44 Dose: 5 mg Hydroxyzine HCl (Hydroxyzine Hcl 25 Mg Tablet) 25 mg PO Q6H PRN PRN Reason: Anxiety Last Admin: 07/08/24 15:35 Dose: 25 mg Lorazepam (Lorazepam 1 Mg Tablet) 1 mg PO Q4H PRN PRN Reason: anxiety, agitation Last Admin: 07/08/24 16:24 Dose: 1 mg Magnesium Hydroxide (Milk Of Magnesia 30 Ml Oral.Susp) 30 ml PO DAILY PRN PRN Reason: Constipation Nicotine Polacrilex (Nicotine Polacrilex 2 Mg Gum) 4 mg BUCCAL Q2H PRN PRN Reason: Nicotine Cravings Olanzapine (Olanzapine 5 Mg Tablet) 5 mg PO TID PRN PRN Reason: psychosis, agitation Last Admin: 07/08/24 16:03 Dose: 5 mg Olanzapine (Olanzapine Odt 10 Mg Tab.Rapdis) 20 mg TRANSLINGU BEDTIME SADIQ Last Admin: 07/08/24 20:23 Dose: 20 mg Trazodone HCl (Trazodone Hcl 50 Mg Tablet) 50 mg PO BEDTIME MRX1 PRN PRN Reason: Insomnia Last Admin: 07/08/24 20:23 Dose: 50 mg Allergies Allergies Allergy/AdvReac Type Severity Reaction Status Date / Time No Known Drug Allergies Allergy Mild NONE Verified 06/27/24 15:25 [NO KNOWN DRUG ALLERGIES] Assessment & Plan Assessment & Plan (1) Acute psychosis: Status: Acute Code(s): F23 - Brief psychotic disorder (2) Cannabis use disorder: Status: Acute Code(s): F12.90 - Cannabis use, unspecified, uncomplicated Plan Acute Psychosis, Cannabis Use Disorder Plan 1. Admit, CV, one to one 2. Medical monitoring, elevated WBC, T 97.2 100.7 99.6 this evening, elevated BP/P 3. Olanzapine 20 mg HS and prn 4. Lorazepam 1 mg po q4h prn anxiety, agitation 5. Collateral contact 06/23/24: Continue regime, ?need to add Risperdal/Haldol to help with clarity of thought process. 06/25/2024: Continue current regimen. Noted team may consider adding Risperdal or Haldol. 06/26/24: Haldol 5 mg bid EEG B12, Folate, TSH, A1c 06/27/24: Continue treatment 06/28/24: Continue treatment 06/29/24: Continue treatment 06/30/24: Continue treatment 07/01: continue current management and treatment plan. 07/02: continue current management and treatment plan. 07/03 continue tx. 07/04 pt calmer, less AH/VH, less paranoid ideas but continues to experince them. May need more time on current regimen to clear. 07/05 continues with improvement, increase discharge planning activities and his active involvement in making arrangements. 07/07 discharge planning 07/08: Continue current regimen and plans 07/09: Continue current regimen and plans Reason for continued inpatient stay Substantial Risk for: med/psych decompensation Time Spent With Patient Time: Total time managing care of this patient today ____ minutes.
[2024-07-09] MEDS: Acetaminophen 325 MG TABLET 650 MG PO (09:49)
[2024-07-09] MEDS: OLANZapine 5 MG TABLET PO ×2 (10:12→15:06)
[2024-07-09] MEDS: LORazepam 1 MG TABLET PO (12:14)
[2024-07-09] MEDS: hydrOXYzine HCL 25 MG TABLET PO (15:47)
[2024-07-09 19:50] VITALS: BP 116/55; PULSE 85; TEMP 36.1; O2SAT 97
[2024-07-09] MEDS: traZODone HCL 50 MG TABLET PO (20:21)
[2024-07-09] MEDS: OLANZapine ODT 10 MG TAB.RAPDIS 20 MG TRANSLINGU (20:21)
[2024-07-10 07:50] VITALS: BP 123/58; PULSE 72; TEMP 36.8; O2SAT 98
[2024-07-10] MEDS: OLANZapine 5 MG TABLET PO ×2 (08:10→14:08)
[2024-07-10] MEDS: Acetaminophen 325 MG TABLET 650 MG PO (08:10)
[2024-07-10] MEDS: Haloperidol Lactate Oral Conc 10 MG/5 ML ORAL.CONC 5 MG PO (08:11)
[2024-07-10] MEDS: hydrOXYzine HCL 25 MG TABLET PO (14:49)
--- NOTE | 2024-07-10 15:35 | HO.PSYCHPN ---
Subjective Subjective Date of Service: 07/10/24 Reason For Visit: Crisis Subjective Notes: Conditional Voluntary Healthcare Proxy: No Guardianship: No Medical Problems Affecting Mental Status: No Interim History: Team reports a quiet weekend with increase in prn use, AH+ and overall feeling overwhelmed in attempting to look for housing. Review of prns used, will increase Olanzapine and Haldol. Pt preparing to return to school on 07/25/24 and reports he is apprehensive about all of the changes in his life recently. Medication Compliance: Yes Side effects from medications: No Attending Groups: Intermittent Review of Systems Acute medical concerns: No Medical Review of Systems: unchanged Review of Systems Review of Systems Intermittent back pain Mental Status Exam Mental Status Exam Patient Appearance: Appropriate Patient Orientation: Person, Place, Time and Situation Level of Consciousness: Alert Patient Behavior: Talkative and Good Eye Contact Mood Description: Withdrawn and Appropriate Affect Description: Flat Patient Cognition Impaired: No Ability to Follow Directions: Good Speech Pattern: Spontaneous Speech Memory Description: Episodic Impaired Hallucinations: None Delusions: Present (mild) Thought Process: Rumination Thought Content: positive for Circumstantial and positive for Perseveration Judgement: Fair Diagnostics Vital Signs (24Hr): Vital Signs - 24 hr 07/09/24 19:50 07/10/24 07:50 Temperature 96.9 F 98.3 F Pulse Rate 85 72 Blood Pressure 116/55 L 123/58 L Pulse Oximetry 97 98 Oxygen Delivery Method Room Air Room Air BMI result Body Mass Index 22.8 Labs 06/19/24 14:28 06/19/24 17:49 Imaging Radiology Impressions: ITS Impressions Head CT 06/19/24 16:14 IMPRESSION: No acute intracranial abnormality including hemorrhage, mass effect, hydrocephalus, or acute territorial edematous infarction. Chest X-Ray 06/19/24 16:50 IMPRESSION: No acute cardiopulmonary disease. Medications Medications Current Medications Acetaminophen (Acetaminophen 325 Mg Tablet) 650 mg PO Q6H PRN PRN Reason: Headache/Pain Mild Scale (1-3) Last Admin: 07/10/24 08:10 Dose: 650 mg Al Hydroxide/Mg Hydroxide (Magnesium Hydrox/Alum Hydrox 30 Ml Oral.Susp) 30 ml PO Q6H PRN PRN Reason: Heartburn/Nausea Haloperidol Lactate (Haloperidol Lactate Oral Conc 10 Mg/5 Ml Oral.Conc) 10 mg PO BID SADIQ Hydroxyzine HCl (Hydroxyzine Hcl 25 Mg Tablet) 25 mg PO Q6H PRN PRN Reason: Anxiety Last Admin: 07/10/24 14:49 Dose: 25 mg Ibuprofen (Ibuprofen 800 Mg Tablet) 800 mg PO Q8H PRN PRN Reason: back pain Lorazepam (Lorazepam 1 Mg Tablet) 1 mg PO Q4H PRN PRN Reason: anxiety, agitation Last Admin: 07/09/24 12:14 Dose: 1 mg Magnesium Hydroxide (Milk Of Magnesia 30 Ml Oral.Susp) 30 ml PO DAILY PRN PRN Reason: Constipation Nicotine Polacrilex (Nicotine Polacrilex 2 Mg Gum) 4 mg BUCCAL Q2H PRN PRN Reason: Nicotine Cravings Olanzapine (Olanzapine Odt 10 Mg Tab.Rapdis) 20 mg TRANSLINGU BEDTIME SADIQ Last Admin: 07/09/24 20:21 Dose: 20 mg Olanzapine (Olanzapine 10 Mg Tablet) 10 mg PO DAILY SADIQ Olanzapine (Olanzapine 5 Mg Tablet) 5 mg PO BID PRN PRN Reason: psychosis, agitation Last Admin: 07/10/24 14:08 Dose: 5 mg Trazodone HCl (Trazodone Hcl 50 Mg Tablet) 50 mg PO BEDTIME MRX1 PRN PRN Reason: Insomnia Last Admin: 07/09/24 20:21 Dose: 50 mg Allergies Allergies Allergy/AdvReac Type Severity Reaction Status Date / Time No Known Drug Allergies Allergy Mild NONE Verified 06/27/24 15:25 [NO KNOWN DRUG ALLERGIES] Assessment & Plan Assessment & Plan (1) Acute psychosis: Status: Acute Code(s): F23 - Brief psychotic disorder (2) Cannabis use disorder: Status: Acute Code(s): F12.90 - Cannabis use, unspecified, uncomplicated Plan Acute Psychosis, Cannabis Use Disorder Plan 1. Admit, CV, one to one 2. Medical monitoring, elevated WBC, T 97.2 100.7 99.6 this evening, elevated BP/P 3. Olanzapine 20 mg HS and prn 4. Lorazepam 1 mg po q4h prn anxiety, agitation 5. Collateral contact 06/23/24: Continue regime, ?need to add Risperdal/Haldol to help with clarity of thought process. 06/25/2024: Continue current regimen. Noted team may consider adding Risperdal or Haldol. 06/26/24: Haldol 5 mg bid EEG B12, Folate, TSH, A1c 06/27/24: Continue treatment 06/28/24: Continue treatment 06/29/24: Continue treatment 06/30/24: Continue treatment 07/01: continue current management and treatment plan. 07/02: continue current management and treatment plan. 07/03 continue tx. 07/04 pt calmer, less AH/VH, less paranoid ideas but continues to experince them. May need more time on current regimen to clear. 07/05 continues with improvement, increase discharge planning activities and his active involvement in making arrangements. 07/07 discharge planning 07/08: Continue current regimen and plans 07/09: Continue current regimen and plans 07/10: Increase Olanzapine to 10 mg a.m. 20 mg p.m. Increase Haldol Concentrate to 10 mg bid Message left for pt's brother Juan Stephens [phone] to discuss assistance for pt in gathering belongings from his home. Reason for continued inpatient stay Substantial Risk for: rapid decompensation Time Spent With Patient Time: Total time managing care of this patient today ____ minutes.
[2024-07-10] MEDS: LORazepam 1 MG TABLET PO (15:51)
[2024-07-10 20:00] VITALS: BP 127/67; PULSE 105; RESP 16; TEMP 36.4; O2SAT 97
[2024-07-10] MEDS: OLANZapine ODT 10 MG TAB.RAPDIS 20 MG TRANSLINGU (21:09)
[2024-07-10] MEDS: traZODone HCL 50 MG TABLET PO (21:09)
[2024-07-10] MEDS: Haloperidol Lactate Oral Conc 10 MG/5 ML ORAL.CONC PO (21:10)
[2024-07-11 08:00] VITALS: BP 121/67; PULSE 88; RESP 18; TEMP 36.8; O2SAT 97
[2024-07-11] MEDS: OLANZapine 10 MG TABLET PO (09:05)
[2024-07-11] MEDS: Haloperidol Lactate Oral Conc 10 MG/5 ML ORAL.CONC PO ×2 (09:05→20:11)
[2024-07-11] MEDS: LORazepam 1 MG TABLET PO (11:05)
--- NOTE | 2024-07-11 12:34 | HO.PSYCHPN ---
Subjective Subjective Date of Service: 07/11/24 Reason For Visit: Crisis Subjective Notes: Conditional Voluntary Healthcare Proxy: No Guardianship: No Medical Problems Affecting Mental Status: No Interim History: Pt denies med side effects. Message left for pt's brother again for assistance in gathering his belongings from the home Pt has brother's number as well and will try to make connections as well. Discharge this week. Medication Compliance: Yes Side effects from medications: No Attending Groups: Intermittent Review of Systems Acute medical concerns: No Medical Review of Systems: unchanged Review of Systems Review of Systems Yes all other systems are reviewed and are negative Mental Status Exam Mental Status Exam Patient Appearance: Appropriate Patient Orientation: Person, Place, Time and Situation Level of Consciousness: Alert Patient Behavior: Talkative and Good Eye Contact Mood Description: Withdrawn and Appropriate Affect Description: Flat Patient Cognition Impaired: No Ability to Follow Directions: Good Speech Pattern: Spontaneous Speech Memory Description: Episodic Impaired Hallucinations: None Delusions: Present (mild) Thought Process: Rumination Thought Content: positive for Circumstantial and positive for Perseveration Judgement: Fair Diagnostics Vital Signs (24Hr): Vital Signs - 24 hr 07/10/24 20:00 07/11/24 08:00 Temperature 97.5 F 98.3 F Pulse Rate 105 H 88 Respiratory Rate 16 18 Blood Pressure 127/67 121/67 Pulse Oximetry 97 97 Oxygen Delivery Method Room Air Room Air BMI result Body Mass Index 22.8 Labs 06/19/24 14:28 06/19/24 17:49 Imaging Radiology Impressions: ITS Impressions Head CT 06/19/24 16:14 IMPRESSION: No acute intracranial abnormality including hemorrhage, mass effect, hydrocephalus, or acute territorial edematous infarction. Chest X-Ray 06/19/24 16:50 IMPRESSION: No acute cardiopulmonary disease. Medications Medications Current Medications Acetaminophen (Acetaminophen 325 Mg Tablet) 650 mg PO Q6H PRN PRN Reason: Headache/Pain Mild Scale (1-3) Last Admin: 07/10/24 08:10 Dose: 650 mg Al Hydroxide/Mg Hydroxide (Magnesium Hydrox/Alum Hydrox 30 Ml Oral.Susp) 30 ml PO Q6H PRN PRN Reason: Heartburn/Nausea Haloperidol Lactate (Haloperidol Lactate Oral Conc 10 Mg/5 Ml Oral.Conc) 10 mg PO BID SADIQ Last Admin: 07/11/24 09:05 Dose: 10 mg Hydroxyzine HCl (Hydroxyzine Hcl 25 Mg Tablet) 25 mg PO Q6H PRN PRN Reason: Anxiety Last Admin: 07/10/24 14:49 Dose: 25 mg Ibuprofen (Ibuprofen 800 Mg Tablet) 800 mg PO Q8H PRN PRN Reason: back pain Lorazepam (Lorazepam 1 Mg Tablet) 1 mg PO Q4H PRN PRN Reason: anxiety, agitation Last Admin: 07/11/24 11:05 Dose: 1 mg Magnesium Hydroxide (Milk Of Magnesia 30 Ml Oral.Susp) 30 ml PO DAILY PRN PRN Reason: Constipation Nicotine Polacrilex (Nicotine Polacrilex 2 Mg Gum) 4 mg BUCCAL Q2H PRN PRN Reason: Nicotine Cravings Olanzapine (Olanzapine Odt 10 Mg Tab.Rapdis) 20 mg TRANSLINGU BEDTIME SADIQ Last Admin: 07/10/24 21:09 Dose: 20 mg Olanzapine (Olanzapine 10 Mg Tablet) 10 mg PO DAILY SADIQ Last Admin: 07/11/24 09:05 Dose: 10 mg Olanzapine (Olanzapine 5 Mg Tablet) 5 mg PO BID PRN PRN Reason: psychosis, agitation Last Admin: 07/10/24 14:08 Dose: 5 mg Trazodone HCl (Trazodone Hcl 50 Mg Tablet) 50 mg PO BEDTIME MRX1 PRN PRN Reason: Insomnia Last Admin: 07/10/24 21:09 Dose: 50 mg Allergies Allergies Allergy/AdvReac Type Severity Reaction Status Date / Time No Known Drug Allergies Allergy Mild NONE Verified 06/27/24 15:25 [NO KNOWN DRUG ALLERGIES] Assessment & Plan Assessment & Plan (1) Acute psychosis: Status: Acute Code(s): F23 - Brief psychotic disorder (2) Cannabis use disorder: Status: Acute Code(s): F12.90 - Cannabis use, unspecified, uncomplicated Plan Acute Psychosis, Cannabis Use Disorder Plan 1. Admit, CV, one to one 2. Medical monitoring, elevated WBC, T 97.2 100.7 99.6 this evening, elevated BP/P 3. Olanzapine 20 mg HS and prn 4. Lorazepam 1 mg po q4h prn anxiety, agitation 5. Collateral contact 06/23/24: Continue regime, ?need to add Risperdal/Haldol to help with clarity of thought process. 06/25/2024: Continue current regimen. Noted team may consider adding Risperdal or Haldol. 06/26/24: Haldol 5 mg bid EEG B12, Folate, TSH, A1c 06/27/24: Continue treatment 06/28/24: Continue treatment 06/29/24: Continue treatment 06/30/24: Continue treatment 07/01: continue current management and treatment plan. 07/02: continue current management and treatment plan. 07/03 continue tx. 07/04 pt calmer, less AH/VH, less paranoid ideas but continues to experince them. May need more time on current regimen to clear. 07/05 continues with improvement, increase discharge planning activities and his active involvement in making arrangements. 07/07 discharge planning 07/08: Continue current regimen and plans 07/09: Continue current regimen and plans 07/11/24: Continue regime Reason for continued inpatient stay Substantial Risk for: rapid decompensation Time Spent With Patient Time: Total time managing care of this patient today ____ minutes.
[2024-07-11] MEDS: hydrOXYzine HCL 25 MG TABLET PO (13:27)
[2024-07-11] MEDS: OLANZapine 5 MG TABLET PO (15:35)
[2024-07-11] MEDS: Acetaminophen 325 MG TABLET 650 MG PO (18:16)
[2024-07-11 19:45] VITALS: BP 115/68; PULSE 91; RESP 16; TEMP 37; O2SAT 98
[2024-07-11] MEDS: traZODone HCL 50 MG TABLET PO (20:11)
[2024-07-11] MEDS: OLANZapine ODT 10 MG TAB.RAPDIS 20 MG TRANSLINGU (20:11)
[2024-07-12] MEDS: traZODone HCL 50 MG TABLET PO (00:23)
[2024-07-12 08:00] VITALS: BP 110/57; PULSE 86; TEMP 37; O2SAT 97
[2024-07-12] MEDS: OLANZapine 10 MG TABLET PO (08:29)
[2024-07-12] MEDS: Acetaminophen 325 MG TABLET 650 MG PO (08:29)
[2024-07-12] MEDS: Haloperidol Lactate Oral Conc 10 MG/5 ML ORAL.CONC PO ×2 (10:31→20:49)
--- NOTE | 2024-07-12 11:15 | HO.PSYCHPN ---
Subjective Subjective Date of Service: 07/12/24 Reason For Visit: Crisis Subjective Notes: Conditional Voluntary Healthcare Proxy: No Guardianship: No Medical Problems Affecting Mental Status: No Interim History: I hope when the court date is here I can resolve this with my family and return home. Pt continues to work on discharge planning. We have attempted to reach mother/brother regarding dropping off his belongings at the front desk clerk. Mother said she would but has not followed through. Tolerating recent medication increases. Interviewing for placement options locally. Medication Compliance: Yes Side effects from medications: No Attending Groups: Intermittent Review of Systems Acute medical concerns: No Medical Review of Systems: unchanged Review of Systems Review of Systems Yes all other systems are reviewed and are negative Mental Status Exam Mental Status Exam Patient Appearance: Appropriate Patient Orientation: Person, Place, Time and Situation Level of Consciousness: Alert Patient Behavior: Talkative and Good Eye Contact Mood Description: Withdrawn and Appropriate Affect Description: Flat Patient Cognition Impaired: No Ability to Follow Directions: Good Speech Pattern: Spontaneous Speech Memory Description: Episodic Impaired Hallucinations: None Delusions: Present (mild) Thought Process: Rumination Thought Content: positive for Circumstantial and positive for Perseveration Judgement: Fair Diagnostics Vital Signs (24Hr): Vital Signs - 24 hr 07/11/24 19:45 Temperature 98.6 F Pulse Rate 91 Respiratory Rate 16 Blood Pressure 115/68 Pulse Oximetry 98 Oxygen Delivery Method Room Air BMI result Body Mass Index 22.8 Labs 06/19/24 14:28 06/19/24 17:49 Imaging Radiology Impressions: ITS Impressions Head CT 06/19/24 16:14 IMPRESSION: No acute intracranial abnormality including hemorrhage, mass effect, hydrocephalus, or acute territorial edematous infarction. Chest X-Ray 06/19/24 16:50 IMPRESSION: No acute cardiopulmonary disease. Medications Medications Current Medications Acetaminophen (Acetaminophen 325 Mg Tablet) 650 mg PO Q6H PRN PRN Reason: Headache/Pain Mild Scale (1-3) Last Admin: 07/12/24 08:29 Dose: 650 mg Al Hydroxide/Mg Hydroxide (Magnesium Hydrox/Alum Hydrox 30 Ml Oral.Susp) 30 ml PO Q6H PRN PRN Reason: Heartburn/Nausea Haloperidol Lactate (Haloperidol Lactate Oral Conc 10 Mg/5 Ml Oral.Conc) 10 mg PO BID SADIQ Last Admin: 07/12/24 10:31 Dose: 10 mg Hydroxyzine HCl (Hydroxyzine Hcl 25 Mg Tablet) 25 mg PO Q6H PRN PRN Reason: Anxiety Last Admin: 07/11/24 13:27 Dose: 25 mg Ibuprofen (Ibuprofen 800 Mg Tablet) 800 mg PO Q8H PRN PRN Reason: back pain Lorazepam (Lorazepam 1 Mg Tablet) 1 mg PO Q4H PRN PRN Reason: anxiety, agitation Last Admin: 07/11/24 11:05 Dose: 1 mg Magnesium Hydroxide (Milk Of Magnesia 30 Ml Oral.Susp) 30 ml PO DAILY PRN PRN Reason: Constipation Nicotine Polacrilex (Nicotine Polacrilex 2 Mg Gum) 4 mg BUCCAL Q2H PRN PRN Reason: Nicotine Cravings Olanzapine (Olanzapine Odt 10 Mg Tab.Rapdis) 20 mg TRANSLINGU BEDTIME SADIQ Last Admin: 07/11/24 20:11 Dose: 20 mg Olanzapine (Olanzapine 10 Mg Tablet) 10 mg PO DAILY SADIQ Last Admin: 07/12/24 08:29 Dose: 10 mg Olanzapine (Olanzapine 5 Mg Tablet) 5 mg PO BID PRN PRN Reason: psychosis, agitation Last Admin: 07/11/24 15:35 Dose: 5 mg Trazodone HCl (Trazodone Hcl 50 Mg Tablet) 50 mg PO BEDTIME MRX1 PRN PRN Reason: Insomnia Last Admin: 07/12/24 00:23 Dose: 50 mg Allergies Allergies Allergy/AdvReac Type Severity Reaction Status Date / Time No Known Drug Allergies Allergy Mild NONE Verified 06/27/24 15:25 [NO KNOWN DRUG ALLERGIES] Assessment & Plan Assessment & Plan (1) Acute psychosis: Status: Acute Code(s): F23 - Brief psychotic disorder (2) Cannabis use disorder: Status: Acute Code(s): F12.90 - Cannabis use, unspecified, uncomplicated Plan Acute Psychosis, Cannabis Use Disorder Plan 1. Admit, CV, one to one 2. Medical monitoring, elevated WBC, T 97.2 100.7 99.6 this evening, elevated BP/P 3. Olanzapine 20 mg HS and prn 4. Lorazepam 1 mg po q4h prn anxiety, agitation 5. Collateral contact 06/23/24: Continue regime, ?need to add Risperdal/Haldol to help with clarity of thought process. 06/25/2024: Continue current regimen. Noted team may consider adding Risperdal or Haldol. 06/26/24: Haldol 5 mg bid EEG B12, Folate, TSH, A1c 06/27/24: Continue treatment 06/28/24: Continue treatment 06/29/24: Continue treatment 06/30/24: Continue treatment 07/01: continue current management and treatment plan. 07/02: continue current management and treatment plan. 07/03 continue tx. 07/04 pt calmer, less AH/VH, less paranoid ideas but continues to experince them. May need more time on current regimen to clear. 07/05 continues with improvement, increase discharge planning activities and his active involvement in making arrangements. 07/07 discharge planning 07/08: Continue current regimen and plans 07/09: Continue current regimen and plans 07/11/24: Continue regime 07/13/24: Discharge planning. Reason for continued inpatient stay Substantial Risk for: rapid decompensation Time Spent With Patient Time: Total time managing care of this patient today ____ minutes.
[2024-07-12] MEDS: OLANZapine 5 MG TABLET PO (13:20)
[2024-07-12] MEDS: LORazepam 1 MG TABLET PO (13:20)
[2024-07-12] MEDS: hydrOXYzine HCL 25 MG TABLET PO (15:24)
[2024-07-12 20:00] VITALS: BP 112/55; PULSE 83; RESP 18; TEMP 36.9; O2SAT 97
[2024-07-12] MEDS: OLANZapine ODT 10 MG TAB.RAPDIS 20 MG TRANSLINGU (20:48)
[2024-07-13 08:15] VITALS: BP 121/60; PULSE 71; RESP 16; TEMP 37; O2SAT 97
[2024-07-13] MEDS: OLANZapine 10 MG TABLET PO (09:15)
[2024-07-13] MEDS: Haloperidol Lactate Oral Conc 10 MG/5 ML ORAL.CONC PO ×2 (09:15→21:00)
--- NOTE | 2024-07-13 10:30 | HO.PSYCHPN ---
Subjective Subjective Date of Service: 07/13/24 Reason For Visit: Crisis Subjective Notes: Conditional Voluntary Healthcare Proxy: No Guardianship: No Medical Problems Affecting Mental Status: No Interim History: Pt has a tentative program acceptance next week. He tells team this program has told him they will help him stop medications. He is discussing this with team and is aware of the importance of remaining on his medications which he also talks with tw about. Medication Compliance: Yes Side effects from medications: No Attending Groups: Intermittent Review of Systems Acute medical concerns: No Medical Review of Systems: unchanged Review of Systems Review of Systems Yes all other systems are reviewed and are negative Mental Status Exam Mental Status Exam Patient Appearance: Appropriate Patient Orientation: Person, Place, Time and Situation Level of Consciousness: Alert Patient Behavior: Talkative and Good Eye Contact Mood Description: Withdrawn and Appropriate Affect Description: Flat Patient Cognition Impaired: No Ability to Follow Directions: Good Speech Pattern: Spontaneous Speech Memory Description: Episodic Impaired Hallucinations: None Delusions: Present (mild) Thought Process: Rumination Thought Content: positive for Circumstantial and positive for Perseveration Judgement: Fair Diagnostics Vital Signs (24Hr): Vital Signs - 24 hr 07/12/24 20:00 07/13/24 08:15 Temperature 98.4 F 98.6 F Pulse Rate 83 71 Respiratory Rate 18 16 Blood Pressure 112/55 L 121/60 Pulse Oximetry 97 97 Oxygen Delivery Method Room Air Room Air BMI result Body Mass Index 22.8 Labs 06/19/24 14:28 06/19/24 17:49 Imaging Radiology Impressions: ITS Impressions Head CT 06/19/24 16:14 IMPRESSION: No acute intracranial abnormality including hemorrhage, mass effect, hydrocephalus, or acute territorial edematous infarction. Chest X-Ray 06/19/24 16:50 IMPRESSION: No acute cardiopulmonary disease. Medications Medications Current Medications Acetaminophen (Acetaminophen 325 Mg Tablet) 650 mg PO Q6H PRN PRN Reason: Headache/Pain Mild Scale (1-3) Last Admin: 07/12/24 08:29 Dose: 650 mg Al Hydroxide/Mg Hydroxide (Magnesium Hydrox/Alum Hydrox 30 Ml Oral.Susp) 30 ml PO Q6H PRN PRN Reason: Heartburn/Nausea Haloperidol Lactate (Haloperidol Lactate Oral Conc 10 Mg/5 Ml Oral.Conc) 10 mg PO BID SADIQ Last Admin: 07/13/24 09:15 Dose: 10 mg Hydroxyzine HCl (Hydroxyzine Hcl 25 Mg Tablet) 25 mg PO Q6H PRN PRN Reason: Anxiety Last Admin: 07/12/24 15:24 Dose: 25 mg Ibuprofen (Ibuprofen 800 Mg Tablet) 800 mg PO Q8H PRN PRN Reason: back pain Lorazepam (Lorazepam 1 Mg Tablet) 1 mg PO Q4H PRN PRN Reason: anxiety, agitation Last Admin: 07/12/24 13:20 Dose: 1 mg Magnesium Hydroxide (Milk Of Magnesia 30 Ml Oral.Susp) 30 ml PO DAILY PRN PRN Reason: Constipation Nicotine Polacrilex (Nicotine Polacrilex 2 Mg Gum) 4 mg BUCCAL Q2H PRN PRN Reason: Nicotine Cravings Olanzapine (Olanzapine Odt 10 Mg Tab.Rapdis) 20 mg TRANSLINGU BEDTIME SADIQ Last Admin: 07/12/24 20:48 Dose: 20 mg Olanzapine (Olanzapine 10 Mg Tablet) 10 mg PO DAILY SADIQ Last Admin: 07/13/24 09:15 Dose: 10 mg Olanzapine (Olanzapine 5 Mg Tablet) 5 mg PO BID PRN PRN Reason: psychosis, agitation Last Admin: 07/12/24 13:20 Dose: 5 mg Trazodone HCl (Trazodone Hcl 50 Mg Tablet) 50 mg PO BEDTIME MRX1 PRN PRN Reason: Insomnia Last Admin: 07/12/24 00:23 Dose: 50 mg Allergies Allergies Allergy/AdvReac Type Severity Reaction Status Date / Time No Known Drug Allergies Allergy Mild NONE Verified 06/27/24 15:25 [NO KNOWN DRUG ALLERGIES] Assessment & Plan Assessment & Plan (1) Acute psychosis: Status: Acute Code(s): F23 - Brief psychotic disorder (2) Cannabis use disorder: Status: Acute Code(s): F12.90 - Cannabis use, unspecified, uncomplicated Plan Acute Psychosis, Cannabis Use Disorder Plan 1. Admit, CV, one to one 2. Medical monitoring, elevated WBC, T 97.2 100.7 99.6 this evening, elevated BP/P 3. Olanzapine 20 mg HS and prn 4. Lorazepam 1 mg po q4h prn anxiety, agitation 5. Collateral contact 06/23/24: Continue regime, ?need to add Risperdal/Haldol to help with clarity of thought process. 06/25/2024: Continue current regimen. Noted team may consider adding Risperdal or Haldol. 8/5/24: Haldol 5 mg bid EEG B12, Folate, TSH, A1c 06/27/24: Continue treatment 06/28/24: Continue treatment 06/29/24: Continue treatment 06/30/24: Continue treatment 07/01: continue current management and treatment plan. 07/02: continue current management and treatment plan. 07/03 continue tx. 07/04 pt calmer, less AH/VH, less paranoid ideas but continues to experince them. May need more time on current regimen to clear. 07/05 continues with improvement, increase discharge planning activities and his active involvement in making arrangements. 07/07 discharge planning 07/08: Continue current regimen and plans 07/09: Continue current regimen and plans 07/11/24: Continue regime 07/13/24: Continue tx Discharge planning. Diagnostics in the a.m. Reason for continued inpatient stay Substantial Risk for: rapid decompensation Time Spent With Patient Time: Total time managing care of this patient today ____ minutes.
[2024-07-13 14:25] VITALS: BMI 23.1
[2024-07-13] MEDS: LORazepam 1 MG TABLET PO (15:07)
[2024-07-13] MEDS: OLANZapine 5 MG TABLET PO (15:36)
[2024-07-13] MEDS: hydrOXYzine HCL 25 MG TABLET PO (17:42)
[2024-07-13 20:30] VITALS: BP 131/77; PULSE 110; RESP 16; TEMP 36.8; O2SAT 97
[2024-07-13] MEDS: OLANZapine ODT 10 MG TAB.RAPDIS 20 MG TRANSLINGU (21:00)
[2024-07-14 08:08] VITALS: BP 131/83; PULSE 106; RESP 16; TEMP 36.6; O2SAT 96
[2024-07-14 08:38] LABS: MANUAL DIFF FLAG NO
[2024-07-14 08:41] LABS: Basophils Percent Auto 0.4 % (0-2); Eosinophils Absolute Auto 0.1 X10*3/uL (0.0-0.4); Hematocrit 46.9 % (42.0-52.0); Hemoglobin 16.3 g/dl (14.0-18.0); Imm Gran Abs Auto 0.03 X10*3/uL (0.00-0.03); Imm Gran Pct Auto 0.4 % (0.0-0.4); Lymphocytes Absolute Auto 2.1 X10*3/uL (1.2-4.9); Lymphocytes Percent Auto 29.1 % (20-40); Mean Corpuscular HGB Conc 34.8 g/dl (31.0-36.0); Mean Corpuscular Hemoglobin 29.5 pg (27.0-33.0); Mean Corpuscular Volume 84.8 fL (80.0-98.0); Mean Platelet Volume 10.4 fL (9.4-12.4); Monocytes Absolute Auto 0.6 X10*3/uL (0.1-1.2); Neutrophils Absolute Auto 4.4 x10*3/uL (2.0-8.3); Neutrophils Percent Auto 61.1 % (45-73); Platelet Count 213 X10*3/uL (160-400); Red Blood Count 5.53 X10*6/uL (4.60-5.80); Red Cell Distribution Width 12.4 % (11.0-16.0); White Blood Count 7.2 X10*3/uL (4.8-10.8)
[2024-07-14 09:09] LABS: Alanine Aminotransferase 173 U/L (0-40); Albumin Level 4.6 g/dL (3.5-5.0); Alkaline Phosphatase 79 U/L (39-117); Anion Gap 12 (12-20); Aspartate Amino Transferase 39 U/L (5-37); Bilirubin Total 0.4 mg/dL (0.0-1.0); Blood Urea Nitrogen 15 mg/dL (9-16); Calcium 10.1 mg/dL (8.4-10.2); Carbon Dioxide 30 mmol/L (22-29); Chloride 105 mmol/L (96-108); Cholesterol 230 mg/dL (<200); Creatinine Clr Calc Pharmacy 138.8; Estimated Glomerular Filt Rate > 60; Glucose Random 91 mg/dL (60-115); HDL Cholesterol 69 mg/dL (>40); LDL Cholesterol Calculated 147 mg/dL (<100); Potassium 4.7 mmol/L (3.3-5.1); Sodium 142 mmol/L (135-145); Total Protein 7.3 g/dL (6.5-8.0); Triglycerides 74 mg/dL (<150)
[2024-07-14 09:25] LABS: Estimated Average Glucose 91 mg/dL; Hemoglobin A1c % 4.8 % (<6.0)
[2024-07-14] MEDS: Haloperidol Lactate Oral Conc 10 MG/5 ML ORAL.CONC PO ×2 (09:59→21:23)
[2024-07-14] MEDS: OLANZapine 10 MG TABLET PO (09:59)
--- NOTE | 2024-07-14 12:14 | P.PNPSI_ITS ---
Subjective Subjective Date of Service: 07/14/24 Reason For Visit: Crisis Interim History: met with patient; discussed with team; reviewed chart pt says he's overall doing better; says being on the unit is a mixed bag in that he's feeling better but it's been hard missing his family. Discussed medications and patient agrees that they have been effective and are significantly helping his functioning; he understands and accepts that he may be on antipsychotic medications for most of his life. Also Discussed going to [facility]. Pastor Rush initially told patient to consider coming off all his medications; director of social work discussed and explained patient's need for medications with Pastor Rush who said he understood and agreed with plan. -Patient reports that overall AH is less and he's more able to ignore them, but they persist and can be intrusive; he's learning to distract himself. -Sometimes AH keep him up at night but he is able to fall asleep with trazodone; he has frequent waking however due to AH but seems to be able to get back to sleep. -says the paranoid feeling people are talking about me has also decreased Review of medication trials during this admission. Patient says that On Zyprexa, AH did lessen, however when Haldol was added, AH lessened even more so and he felt calmer; discussed med regimen and possibility of at some point trying just Haldol but he agrees to remain on current regimen for now. Mental Status Exam Mental Status Exam Patient Appearance: Appropriate Patient Orientation: Person, Place, Time and Situation Level of Consciousness: Alert Patient Behavior: Appropriate, Cooperative and Good Eye Contact Mood Description: Appropriate and Anxious Affect Description: Constricted and Blunted Patient Cognition Impaired: No Ability to Follow Directions: Good Speech Pattern: Spontaneous Speech Memory Description: Episodic Impaired Hallucinations: Auditory (but less and better able to ignore) Delusions: Present (mild; mostly able to ignore) Thought Process: Goal Oriented and Linear Thought Content: positive for Intact (Concerns about current situation; family relationships; missing school; no SI or HI) Judgement: Fair Judgement and Insight: Fair and adequate Diagnostics Vital Signs (24Hr): Vital Signs - 24 hr 07/13/24 20:30 07/14/24 08:08 Temperature 98.3 F 97.8 F Pulse Rate 110 H 106 H Respiratory Rate 16 16 Blood Pressure 131/77 131/83 Pulse Oximetry 97 96 Oxygen Delivery Method Room Air Room Air BMI result Body Mass Index 23.1 Labs 07/14/24 08:28 07/14/24 08:28 Labs: Laboratory Results - last 48 hr 07/14/24 08:28 WBC 7.2 RBC 5.53 Hgb 16.3 Hct 46.9 MCV 84.8 MCH 29.5 MCHC 34.8 RDW 12.4 Plt Count 213 MPV 10.4 Immature Gran % (Auto) 0.4 Neut % (Auto) 61.1 Lymph % (Auto) 29.1 [place] % (Auto) 8.0 Eos % (Auto) 1.0 Baso % (Auto) 0.4 Lymph # (Auto) 2.1 [place] # (Auto) 0.6 Eos # (Auto) 0.1 Baso # (Auto) 0.0 Abs Immat Gran (auto) 0.03 Absolute Neuts (auto) 4.4 Absolute Nucleated RBC 0.000 Nucleated RBC % (auto) 0.0 Sodium 142 Potassium 4.7 D Chloride 105 Carbon Dioxide 30 H Anion Gap 12 BUN 15 Creatinine 0.78 Estim Creat Clear Calc 138.8 Estimated GFR > 60 Random Glucose 91 Estimat Average Glucose 91 Hemoglobin A1c % 4.8 Calcium 10.1 Total Bilirubin 0.4 AST 39 H ALT 173 H Alkaline Phosphatase 79 Total Protein 7.3 Albumin 4.6 Triglycerides 74 Cholesterol 230 H LDL Cholesterol, Calc 147 H HDL Cholesterol 69 Imaging Radiology Impressions: ITS Impressions Head CT 06/19/24 16:14 IMPRESSION: No acute intracranial abnormality including hemorrhage, mass effect, hydrocephalus, or acute territorial edematous infarction. Chest X-Ray 06/19/24 16:50 IMPRESSION: No acute cardiopulmonary disease. Medications Medications Current Medications Acetaminophen (Acetaminophen 325 Mg Tablet) 650 mg PO Q6H PRN PRN Reason: Headache/Pain Mild Scale (1-3) Last Admin: 07/12/24 08:29 Dose: 650 mg Al Hydroxide/Mg Hydroxide (Magnesium Hydrox/Alum Hydrox 30 Ml Oral.Susp) 30 ml PO Q6H PRN PRN Reason: Heartburn/Nausea Haloperidol Lactate (Haloperidol Lactate Oral Conc 10 Mg/5 Ml Oral.Conc) 10 mg PO BID SADIQ Last Admin: 07/14/24 09:59 Dose: 10 mg Hydroxyzine HCl (Hydroxyzine Hcl 25 Mg Tablet) 25 mg PO Q6H PRN PRN Reason: Anxiety Last Admin: 07/13/24 17:42 Dose: 25 mg Ibuprofen (Ibuprofen 800 Mg Tablet) 800 mg PO Q8H PRN PRN Reason: back pain Lorazepam (Lorazepam 1 Mg Tablet) 1 mg PO Q4H PRN PRN Reason: anxiety, agitation Last Admin: 07/13/24 15:07 Dose: 1 mg Magnesium Hydroxide (Milk Of Magnesia 30 Ml Oral.Susp) 30 ml PO DAILY PRN PRN Reason: Constipation Nicotine Polacrilex (Nicotine Polacrilex 2 Mg Gum) 4 mg BUCCAL Q2H PRN PRN Reason: Nicotine Cravings Olanzapine (Olanzapine Odt 10 Mg Tab.Rapdis) 20 mg TRANSLINGU BEDTIME SADIQ Last Admin: 07/13/24 21:00 Dose: 20 mg Olanzapine (Olanzapine 10 Mg Tablet) 10 mg PO DAILY SADIQ Last Admin: 07/14/24 09:59 Dose: 10 mg Olanzapine (Olanzapine 5 Mg Tablet) 5 mg PO BID PRN PRN Reason: psychosis, agitation Last Admin: 07/13/24 15:36 Dose: 5 mg Trazodone HCl (Trazodone Hcl 50 Mg Tablet) 50 mg PO BEDTIME MRX1 PRN PRN Reason: Insomnia Last Admin: 07/12/24 00:23 Dose: 50 mg Allergies Allergies Allergy/AdvReac Type Severity Reaction Status Date / Time No Known Drug Allergies Allergy Mild NONE Verified 06/27/24 15:25 [NO KNOWN DRUG ALLERGIES] Assessment & Plan Assessment & Plan (1) Acute psychosis: Status: Acute Code(s): F23 - Brief psychotic disorder (2) Cannabis use disorder: Status: Acute Code(s): F12.90 - Cannabis use, unspecified, uncomplicated Plan Acute Psychosis, Cannabis Use Disorder Plan 1. Admit, CV, one to one 2. Medical monitoring, elevated WBC, T 97.2 100.7 99.6 this evening, elevated BP/P 3. Olanzapine 20 mg HS and prn 4. Lorazepam 1 mg po q4h prn anxiety, agitation 5. Collateral contact 06/23/24: Continue regime, ?need to add Risperdal/Haldol to help with clarity of thought process. 06/25/2024: Continue current regimen. Noted team may consider adding Risperdal or Haldol. 06/26/24: Haldol 5 mg bid EEG B12, Folate, TSH, A1c 06/27/24: Continue treatment 06/28/24: Continue treatment 06/29/24: Continue treatment 06/30/24: Continue treatment 07/01: continue current management and treatment plan. 07/02: continue current management and treatment plan. 07/03 continue tx. 07/04 pt calmer, less AH/VH, less paranoid ideas but continues to experince them. May need more time on current regimen to clear. 07/05 continues with improvement, increase discharge planning activities and his active involvement in making arrangements. 07/07 discharge planning 07/08: Continue current regimen and plans 07/09: Continue current regimen and plans 07/11/24: Continue regime 07/13/24: Continue tx Discharge planning. Diagnostics in the a.m. 07/14 pt says he's overall doing better; says being on the unit is a mixed bag in that he's feeling better but it's been hard missing his family. Discussed medications and patient agrees that they have been effective and are significantly helping his functioning; he understands and accepts that he may be on antipsychotic medications for most of his life. Electronic Assembler Group Leader Review of medication trials during this admission. Patient says that On Zyprexa, AH did lessen, however when Haldol was added, AH lessened even more so and he felt calmer; discussed med regimen and possibility of at some point trying just Haldol but he agrees to remain on current regimen for now. Also Discussed going to [facility]. Pastor Rush initially told patient to consider coming off all his medications; director of social work discussed and explained patient's need for medications with Pastor Rush who said he understood and agreed with plan. -Patient reports that overall AH is less and he's more able to ignore them, but they persist and can be intrusive; he's learning to distract himself. -Sometimes AH keep him up at night but he is able to fall asleep with trazodone; he has frequent waking however due to AH but seems to be able to get back to sleep. -says the paranoid feeling people are talking about me has also decreased added clonidine as a prn to see if this can replace taking the Zyrexa PRN (since used only for anxious feeling about missing his family) Patient educated on: diagnosis, medication risk/benefits and therapeutic strategies Informed Consent: understands Reason for continued inpatient stay Substantial Risk for: stable for discharge Time Spent With Patient Time: Total time managing care of this patient today ____ minutes.
[2024-07-14] MEDS: hydrOXYzine HCL 25 MG TABLET PO (14:33)
[2024-07-14 15:33] VITALS: BP 120/76
[2024-07-14] MEDS: cloNIDine HCL 0.1 MG TABLET PO (15:33)
[2024-07-14 20:00] VITALS: BP 121/57; PULSE 75; RESP 16; TEMP 36.7; O2SAT 98
[2024-07-14] MEDS: OLANZapine ODT 10 MG TAB.RAPDIS 20 MG TRANSLINGU (21:23)
[2024-07-14] MEDS: traZODone HCL 50 MG TABLET PO (21:23)
[2024-07-15] MEDS: traZODone HCL 50 MG TABLET PO ×2 (00:23→20:42)
[2024-07-15 08:01] VITALS: BP 123/56; PULSE 74; RESP 16; TEMP 37.1; O2SAT 98
[2024-07-15] MEDS: Haloperidol Lactate Oral Conc 10 MG/5 ML ORAL.CONC PO (08:51)
[2024-07-15] MEDS: OLANZapine 10 MG TABLET PO (08:52)
--- NOTE | 2024-07-15 10:01 | HO.PSYCHPN ---
Subjective Subjective Date of Service: 07/15/24 Reason For Visit: Crisis Interim History: Met with patient; discussed with team Patient reports still has bothersome AH, though they remain better than on admission; using headphones to try and be distracted. Patient reports clonidine is helpful for anxiety and he has been using instead of the Zyprexa. Discussed medication approach and patient agreed to try p.r.n. Haldol for times when auditory hallucinations very coming to bothersome. Upon taking 5 mg, he said it definitely lowered auditory hallucinations and they became very minimal. Patient agreed to see if Haldol alone, at increased dose could be effective enough and eliminate the need for Zyprexa altogether. Pediatric Assistant explained that Zyprexa can always be reacted if needed. Mental Status Exam Mental Status Exam Patient Appearance: Appropriate Patient Orientation: Person, Place, Time and Situation Level of Consciousness: Alert Patient Behavior: Appropriate, Cooperative and Good Eye Contact Mood Description: Appropriate and Anxious Affect Description: Constricted and Blunted Patient Cognition Impaired: No Ability to Follow Directions: Good Speech Pattern: Spontaneous Speech Memory Description: Episodic Impaired Hallucinations: Auditory (but less and better able to ignore) Delusions: Present (mild; mostly able to ignore) Thought Process: Goal Oriented and Linear Thought Content: positive for Intact (Concerns about current situation; family relationships; missing school; no SI or HI) Judgement: Fair Judgement and Insight: Fair and adequate Diagnostics Vital Signs (24Hr): Vital Signs - 24 hr 07/14/24 15:33 07/14/24 20:00 07/15/24 08:01 Temperature 98.1 F 98.8 F Pulse Rate 75 74 Respiratory Rate 16 16 Blood Pressure 120/76 121/57 L 123/56 L Pulse Oximetry 98 98 Oxygen Delivery Method Room Air Room Air BMI result Body Mass Index 23.1 Labs 07/14/24 08:28 07/14/24 08:28 Labs: Laboratory Results - last 48 hr 07/14/24 08:28 WBC 7.2 RBC 5.53 Hgb 16.3 Hct 46.9 MCV 84.8 MCH 29.5 MCHC 34.8 RDW 12.4 Plt Count 213 MPV 10.4 Immature Gran % (Auto) 0.4 Neut % (Auto) 61.1 Lymph % (Auto) 29.1 [place] % (Auto) 8.0 Eos % (Auto) 1.0 Baso % (Auto) 0.4 Lymph # (Auto) 2.1 [place] # (Auto) 0.6 Eos # (Auto) 0.1 Baso # (Auto) 0.0 Abs Immat Gran (auto) 0.03 Absolute Neuts (auto) 4.4 Absolute Nucleated RBC 0.000 Nucleated RBC % (auto) 0.0 Sodium 142 Potassium 4.7 D Chloride 105 Carbon Dioxide 30 H Anion Gap 12 BUN 15 Creatinine 0.78 Estim Creat Clear Calc 138.8 Estimated GFR > 60 Random Glucose 91 Estimat Average Glucose 91 Hemoglobin A1c % 4.8 Calcium 10.1 Total Bilirubin 0.4 AST 39 H ALT 173 H Alkaline Phosphatase 79 Total Protein 7.3 Albumin 4.6 Triglycerides 74 Cholesterol 230 H LDL Cholesterol, Calc 147 H HDL Cholesterol 69 Imaging Radiology Impressions: ITS Impressions Head CT 06/19/24 16:14 IMPRESSION: No acute intracranial abnormality including hemorrhage, mass effect, hydrocephalus, or acute territorial edematous infarction. Chest X-Ray 06/19/24 16:50 IMPRESSION: No acute cardiopulmonary disease. Medications Medications Current Medications Acetaminophen (Acetaminophen 325 Mg Tablet) 650 mg PO Q6H PRN PRN Reason: Headache/Pain Mild Scale (1-3) Last Admin: 07/12/24 08:29 Dose: 650 mg Al Hydroxide/Mg Hydroxide (Magnesium Hydrox/Alum Hydrox 30 Ml Oral.Susp) 30 ml PO Q6H PRN PRN Reason: Heartburn/Nausea Clonidine HCl (Clonidine Hcl 0.1 Mg Tablet) 0.1 mg PO Q4H PRN; Protocol PRN Reason: anxiety/insomnia Last Admin: 07/14/24 15:33 Dose: 0.1 mg Haloperidol Lactate (Haloperidol Lactate Oral Conc 10 Mg/5 Ml Oral.Conc) 10 mg PO BID SADIQ Last Admin: 07/15/24 08:51 Dose: 10 mg Hydroxyzine HCl (Hydroxyzine Hcl 25 Mg Tablet) 25 mg PO Q6H PRN PRN Reason: Anxiety Last Admin: 07/14/24 14:33 Dose: 25 mg Ibuprofen (Ibuprofen 800 Mg Tablet) 800 mg PO Q8H PRN PRN Reason: back pain Lorazepam (Lorazepam 1 Mg Tablet) 1 mg PO Q4H PRN PRN Reason: anxiety, agitation Last Admin: 07/13/24 15:07 Dose: 1 mg Magnesium Hydroxide (Milk Of Magnesia 30 Ml Oral.Susp) 30 ml PO DAILY PRN PRN Reason: Constipation Nicotine Polacrilex (Nicotine Polacrilex 2 Mg Gum) 4 mg BUCCAL Q2H PRN PRN Reason: Nicotine Cravings Olanzapine (Olanzapine Odt 10 Mg Tab.Rapdis) 20 mg TRANSLINGU BEDTIME SADIQ Last Admin: 07/14/24 21:23 Dose: 20 mg Olanzapine (Olanzapine 10 Mg Tablet) 10 mg PO DAILY SADIQ Last Admin: 07/15/24 08:52 Dose: 10 mg Olanzapine (Olanzapine 5 Mg Tablet) 5 mg PO BID PRN PRN Reason: agitation Trazodone HCl (Trazodone Hcl 50 Mg Tablet) 50 mg PO BEDTIME MRX1 PRN PRN Reason: Insomnia Last Admin: 07/15/24 00:23 Dose: 50 mg Allergies Allergies Allergy/AdvReac Type Severity Reaction Status Date / Time No Known Drug Allergies Allergy Mild NONE Verified 06/27/24 15:25 [NO KNOWN DRUG ALLERGIES] Assessment & Plan Assessment & Plan (1) Acute psychosis: Status: Acute Code(s): F23 - Brief psychotic disorder (2) Cannabis use disorder: Status: Acute Code(s): F12.90 - Cannabis use, unspecified, uncomplicated Plan Acute Psychosis, Cannabis Use Disorder Hospital course: 06/23/24: Continue regime, ?need to add Risperdal/Haldol to help with clarity of thought process. 06/25/2024: Continue current regimen. Noted team may consider adding Risperdal or Haldol. 06/26/24: Haldol 5 mg bid EEG B12, Folate, TSH, A1c 06/27/24: Continue treatment 06/28/24: Continue treatment 06/29/24: Continue treatment 06/30/24: Continue treatment 07/01: continue current management and treatment plan. 07/02: continue current management and treatment plan. 07/03 continue tx. 07/04 pt calmer, less AH/VH, less paranoid ideas but continues to experince them. May need more time on current regimen to clear. 07/05 continues with improvement, increase discharge planning activities and his active involvement in making arrangements. 07/07 discharge planning 07/08: Continue current regimen and plans 07/09: Continue current regimen and plans 07/11/24: Continue regime 07/13/24: Continue tx Discharge planning. Diagnostics in the a.m. 07/14 pt says he's overall doing better; says being on the unit is a mixed bag in that he's feeling better but it's been hard missing his family. Discussed medications and patient agrees that they have been effective and are significantly helping his functioning; he understands and accepts that he may be on antipsychotic medications for most of his life. Pediatric Assistant Review of medication trials during this admission. Patient says that On Zyprexa, AH did lessen, however when Haldol was added, AH lessened even more so and he felt calmer; discussed med regimen and possibility of at some point trying just Haldol but he agrees to remain on current regimen for now. Also Discussed going to [facility]. Pastor Rush initially told patient to consider coming off all his medications; social media marketing analyst discussed and explained patient's need for medications with Pastor Rush who said he understood and agreed with plan. -Patient reports that overall AH is less and he's more able to ignore them, but they persist and can be intrusive; he's learning to distract himself. -Sometimes AH keep him up at night but he is able to fall asleep with trazodone; he has frequent waking however due to AH but seems to be able to get back to sleep. -says the paranoid feeling people are talking about me has also decreased -added clonidine as a prn to see if this can replace taking the Zyrexa PRN (since used only for anxious feeling about missing his family) 07/15 Patient reports still has bothersome AH, though they remain better than on admission; using headphones to try and be distracted. Patient reports clonidine is helpful for anxiety and he has been using instead of the Zyprexa. Discussed medication approach and patient agreed to try p.r.n. Haldol for times when auditory hallucinations very coming to bothersome. Upon taking 5 mg, he said it definitely lowered auditory hallucinations and they became very minimal. Patient agreed to see if Haldol alone, at increased dose could be effective enough and eliminate the need for Zyprexa altogether. Pediatric Assistant explained that Zyprexa can always be reacted if needed. Plan CV Q 15 minute checks Medication: DC Zyprexa both a.m. and bedtime doses Continue Haldol 10 mg daily INCREase Haldol to 15 mg q.h.s. (hope is that monotherapy can be sufficient Adding Haldol 5 mg p.r.n. for breakthrough auditory hallucinations; discontinued p.r.n. Zyprexa Continue clonidine 0.1 mg q.4h p.r.n. for anxiety (discontinued Ativan which patient says he does not take) Patient educated on: diagnosis, medication risk/benefits and therapeutic strategies Informed Consent: understands Reason for continued inpatient stay Substantial Risk for: stable for discharge Time Spent With Patient Time: Total time managing care of this patient today ____ minutes.
[2024-07-15] MEDS: HaloperidoL 5 MG TABLET PO (13:25)
[2024-07-15 16:03] VITALS: BP 127/68
[2024-07-15] MEDS: cloNIDine HCL 0.1 MG TABLET PO (16:03)
[2024-07-15 19:59] VITALS: BP 110/57; PULSE 73; RESP 16; TEMP 36.8; O2SAT 97
[2024-07-15] MEDS: Haloperidol Lactate Oral Conc 10 MG/5 ML ORAL.CONC 15 MG PO (20:42)
[2024-07-16 09:08] VITALS: BP 131/77; PULSE 104; RESP 16; TEMP 36.8; O2SAT 99
[2024-07-16] MEDS: Haloperidol Lactate Oral Conc 10 MG/5 ML ORAL.CONC PO (09:12)
[2024-07-16] MEDS: HaloperidoL 5 MG TABLET PO ×2 (11:29→15:52)
[2024-07-16] MEDS: hydrOXYzine HCL 25 MG TABLET PO (12:30)
[2024-07-16] MEDS: cloNIDine HCL 0.1 MG TABLET PO (14:29)
--- NOTE | 2024-07-16 15:08 | P.PNPSI_ITS ---
Subjective Subjective Date of Service: 07/16/24 Reason For Visit: Crisis Interim History: Met with patient; discussed with team Patient reports significant improvement on auditory hallucinations and that they are much less and much more able to be ignored with increased Haldol and despite Zyprexa being fully discontinued. He does notice however that without Zyprexa his anxiety is higher but says clonidine is helping. Still struggles with sleeping at night and agrees to increase trazodone. Also discussed that clonidine at bedtime may help with that as well. Plan is still for discharge tomorrow Mental Status Exam Mental Status Exam Patient Appearance: Appropriate Patient Orientation: Person, Place, Time and Situation Level of Consciousness: Alert Patient Behavior: Appropriate, Cooperative and Good Eye Contact Mood Description: Appropriate and Anxious Affect Description: Constricted and Blunted Patient Cognition Impaired: No Ability to Follow Directions: Good Speech Pattern: Spontaneous Speech Memory Description: Episodic Impaired Hallucinations: Auditory (but less and better able to ignore) Delusions: Present (mild; mostly able to ignore) Thought Process: Goal Oriented and Linear Thought Content: positive for Intact (Concerns about current situation; family relationships; missing school; no SI or HI) Judgement: Fair Judgement and Insight: Fair and adequate Diagnostics Vital Signs (24Hr): Vital Signs - 24 hr 07/15/24 16:03 07/15/24 19:59 07/16/24 09:08 Temperature 98.2 F 98.3 F Pulse Rate 73 104 H Respiratory Rate 16 16 Blood Pressure 127/68 110/57 L 131/77 Pulse Oximetry 97 99 Oxygen Delivery Method Room Air Room Air BMI result Body Mass Index 23.1 Labs 07/14/24 08:28 07/14/24 08:28 Imaging Radiology Impressions: ITS Impressions Head CT 06/19/24 16:14 IMPRESSION: No acute intracranial abnormality including hemorrhage, mass effect, hydrocephalus, or acute territorial edematous infarction. Chest X-Ray 06/19/24 16:50 IMPRESSION: No acute cardiopulmonary disease. Medications Medications Current Medications Acetaminophen (Acetaminophen 325 Mg Tablet) 650 mg PO Q6H PRN PRN Reason: Headache/Pain Mild Scale (1-3) Last Admin: 07/12/24 08:29 Dose: 650 mg Al Hydroxide/Mg Hydroxide (Magnesium Hydrox/Alum Hydrox 30 Ml Oral.Susp) 30 ml PO Q6H PRN PRN Reason: Heartburn/Nausea Clonidine HCl (Clonidine Hcl 0.1 Mg Tablet) 0.1 mg PO Q4H PRN; Protocol PRN Reason: anxiety/insomnia Last Admin: 07/16/24 14:29 Dose: 0.1 mg Haloperidol (Haloperidol 5 Mg Tablet) 5 mg PO TID PRN PRN Reason: psychosis Last Admin: 07/16/24 11:29 Dose: 5 mg Haloperidol (Haloperidol 5 Mg Tablet) 15 mg PO BEDTIME SADIQ Hydroxyzine HCl (Hydroxyzine Hcl 25 Mg Tablet) 25 mg PO Q6H PRN PRN Reason: Anxiety Last Admin: 07/16/24 12:30 Dose: 25 mg Ibuprofen (Ibuprofen 800 Mg Tablet) 800 mg PO Q8H PRN PRN Reason: back pain Magnesium Hydroxide (Milk Of Magnesia 30 Ml Oral.Susp) 30 ml PO DAILY PRN PRN Reason: Constipation Nicotine Polacrilex (Nicotine Polacrilex 2 Mg Gum) 4 mg BUCCAL Q2H PRN PRN Reason: Nicotine Cravings Trazodone HCl (Trazodone Hcl 50 Mg Tablet) 50 mg PO BEDTIME MRX1 PRN PRN Reason: Insomnia Last Admin: 07/15/24 20:42 Dose: 50 mg Allergies Allergies Allergy/AdvReac Type Severity Reaction Status Date / Time No Known Drug Allergies Allergy Mild NONE Verified 06/27/24 15:25 [NO KNOWN DRUG ALLERGIES] Assessment & Plan Assessment & Plan (1) Acute psychosis: Status: Acute Code(s): F23 - Brief psychotic disorder (2) Cannabis use disorder: Status: Acute Code(s): F12.90 - Cannabis use, unspecified, uncomplicated Plan Acute Psychosis, Cannabis Use Disorder Hospital course: 06/23/24: Continue regime, ?need to add Risperdal/Haldol to help with clarity of thought process. 06/25/2024: Continue current regimen. Noted team may consider adding Risperdal or Haldol. 06/26/24: Haldol 5 mg bid EEG B12, Folate, TSH, A1c 06/27/24: Continue treatment 06/28/24: Continue treatment 06/29/24: Continue treatment 06/30/24: Continue treatment 07/01: continue current management and treatment plan. 07/02: continue current management and treatment plan. 07/03 continue tx. 07/04 pt calmer, less AH/VH, less paranoid ideas but continues to experince them. May need more time on current regimen to clear. 07/05 continues with improvement, increase discharge planning activities and his active involvement in making arrangements. 07/07 discharge planning 07/08: Continue current regimen and plans 07/09: Continue current regimen and plans 07/11/24: Continue regime 07/13/24: Continue tx Discharge planning. Diagnostics in the a.m. 07/14 pt says he's overall doing better; says being on the unit is a mixed bag in that he's feeling better but it's been hard missing his family. Discussed medications and patient agrees that they have been effective and are significantly helping his functioning; he understands and accepts that he may be on antipsychotic medications for most of his life. [employer] Review of medication trials during this admission. Patient says that On Zyprexa, AH did lessen, however when Haldol was added, AH lessened even more so and he felt calmer; discussed med regimen and possibility of at some point trying just Haldol but he agrees to remain on current regimen for now. Also Discussed going to [facility]. Pastor Rush initially told patient to consider coming off all his medications; social worker aide discussed and explained patient's need for medications with Pastor Rush who said he understood and agreed with plan. -Patient reports that overall AH is less and he's more able to ignore them, but they persist and can be intrusive; he's learning to distract himself. -Sometimes AH keep him up at night but he is able to fall asleep with trazodone; he has frequent waking however due to AH but seems to be able to get back to sleep. -says the paranoid feeling people are talking about me has also decreased -added clonidine as a prn to see if this can replace taking the Zyrexa PRN (since used only for anxious feeling about missing his family) 07/15 Patient reports still has bothersome AH, though they remain better than on admission; using headphones to try and be distracted. Patient reports clonidine is helpful for anxiety and he has been using instead of the Zyprexa. Discussed medication approach and patient agreed to try p.r.n. Haldol for times when auditory hallucinations very coming to bothersome. Upon taking 5 mg, he said it definitely lowered auditory hallucinations and they became very minimal. Patient agreed to see if Haldol alone, at increased dose could be effective enough and eliminate the need for Zyprexa altogether. [employer] Coach explained that Zyprexa can always be reacted if needed. 07/16 Patient reports significant improvement on auditory hallucinations and that they are much less and much more able to be ignored with increased Haldol and despite Zyprexa being fully discontinued. He does notice however that without Zyprexa his anxiety is higher but says clonidine is helping. Still struggles with sleeping at night and agrees to increase trazodone. Also discussed that clonidine at bedtime may help with that as well. Plan is still for discharge tomorrow Plan CV Q 15 minute checks Medication: DC Zyprexa both a.m. and bedtime doses Continue Haldol 10 mg daily INCREase Haldol to 15 mg q.h.s. (hope is that monotherapy can be sufficient Adding Haldol 5 mg p.r.n. for breakthrough auditory hallucinations; discontinued p.r.n. Zyprexa Continue clonidine 0.1 mg q.4h p.r.n. for anxiety (discontinued Ativan which patient says he does not take) Increase trazodone to 100 mg q.h.s. Patient educated on: diagnosis, medication risk/benefits and therapeutic strategies Informed Consent: understands Reason for continued inpatient stay Substantial Risk for: stable for discharge Time Spent With Patient Time: Total time managing care of this patient today ____ minutes.
[2024-07-16 20:00] VITALS: BP 111/55; PULSE 76; RESP 14; TEMP 36.7; O2SAT 98
[2024-07-16] MEDS: HaloperidoL 5 MG TABLET 15 MG PO (20:32)
[2024-07-16] MEDS: traZODone HCL 100 MG TABLET PO (20:32)
[2024-07-17] MEDS: traZODone HCL 50 MG TABLET PO (03:46)
[2024-07-17 08:00] VITALS: BP 126/61; PULSE 125; RESP 16; TEMP 37.3; O2SAT 96
[2024-07-17 08:15] VITALS: BP 121/70; PULSE 85
[2024-07-17] MEDS: HaloperidoL 5 MG TABLET 10 MG PO (08:36)
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
== END 2024-07-17 11:40 | disposition home or self-care (01) | DRG 751 ==
LOC: HO.ED 16:01 → HO.PM5 06-20 13:55
PROVIDERS: Physician Assistant; Physician Assistant Medical; Admitting Provider Clinical Nurse Specialist Psychiatric/Mental Health, Adult; Emergency Provider Emergency Medicine; Visit Provider Clinical Nurse Specialist Psychiatric/Mental Health, Adult
DX: F29 Unspecified psychosis not due to a substance or known physiological condition (principal); F12.90 Cannabis use, unspecified, uncomplicated; Z20.822 Contact with and (suspected) exposure to COVID-19
CPT/HCPCS: 0241U; 36415; 70450; 71046; 80053; 80061; 80307; 81003; 82607; 82746; 83036; 84132; 84443; 85025; 87651; 92950; 93005; 95816; 99285; S9485

== ENCOUNTER → 2024-06-19 15:48 | Outpatient (BNV) | payer OTHER, SELFPAY | PROVIDERS: Emergency Provider Emergency Medicine; Visit Provider Internal Medicine Cardiovascular Disease | DX: I49.9 Cardiac arrhythmia, unspecified (principal) | CPT/HCPCS: 93010 ==

== ENCOUNTER → 2024-06-20 13:38 | Outpatient (BNV) | payer OTHER, SELFPAY | PROVIDERS: Admitting Provider Clinical Nurse Specialist Psychiatric/Mental Health, Adult; Emergency Provider Emergency Medicine; Visit Provider Clinical Nurse Specialist Psychiatric/Mental Health, Adult | DX: F23 Brief psychotic disorder (principal); F12.90 Cannabis use, unspecified, uncomplicated | CPT/HCPCS: 90792; 99231; 99232; 99238 ==

== ENCOUNTER 2025-09-04 15:49 | Outpatient (REF) | payer MEDICAID, SELFPAY ==
--- OUTSIDE RECORDS SUMMARY | 2025-09-04 14:45 | XMS_ITS | Encounter Summary ---
Author Organization [employer] Address [address] [facility] 7 [place] [address] Care Team Providers Care Technician Terminal And Repeater Name Role Phone Salome Garcia MD Primary Care Provider [phone] Encounter Details Date Type Department Care Team ([facility] st Contact Info) Description 09/04/2025 2:45 PM EDT Office Visit [facility] [address] [place], [place] [phone] Salome Garcia MD [address] [place], [place] [phone] Annual physical exam (Primary Dx); Other depression; Screen for STD (sexually transmitted disease); Elevated BP reading w/ no diagnosis of HTN; Folliculitis; Encounter for immunization Social History Tobacco Use Types Packs/Day Years Used Date Smoking Tobacco: Never Smokeless Tobacco: Never Tobacco Cessation:Counseling Given: Not Answered Alcohol Use Standard Drinks/Week Comments Never 0 (1 standard drink = 0.6 oz pur e alcohol) Depression Answer Date Recorded Patient Health Questionnaire-9 Score 9 09/04/2025 Patient Health Questionnaire-9 Score 9 09/04/2025 Last PHQ-9: Questionnaire Data Not on file 1 Housing Stability Answer Date Recorded What is your housing situation today? I have usha dennis 09/04/[address] you li ve. Do you have problems with any of the following? None of the above 09/04/2025 Food Insecurity Answer Date Recorded Within the past 12 months, y ou worried that your food would run out before you got money to buy more: Never True 09/04/2025 Within the past 12 months,th e food you bought just didn't last and you didn't have enough money to get more: Never True Transportation Answer Date Recorded In the past 12 months, has l ack of transportation kept you from medical appts, meetings, work or from getting things needed for daily living? No 09/04/2025 Utilities Answer Date Recorded In the past 12 months, has t he electric, gas, oil or water company threatened to shut off services in your home? No 09/04/2025 Depression Answer Date Recorded Patient Health Questionnaire-2 Score 2 09/04/2025 Internet Access Answer Date Recorded Internet Access Q1 Yes 09/04/2025 Internet Access Q2 Not on file 09/04/2025 Sex and Gender Information Value Date Recorded Sex Assigned at Male 09/03/2025 2:02 PM EDT Legal Sex Male 3:40 PM EDT Gender Identity Male 09/03/2025 2:02 PM EDT Sexual Orientation Straight 09/04/2025 4: 33 PM EDT documented as of this encounter Last Filed Vital Signs Vital Sign Reading Time Taken Comments Blood Pressure 138/76 09/04/2025 3:39 PM EDT Pulse 70 09/04/2025 2:39 PM EDT Temperature 36.8 C (98.2 F) 09/04/2025 2:39 PM EDT Respiratory Rate 20 09/04/2025 2:39 PM EDT Oxygen Saturation 98% 09/04/2025 2:39 PM EDT Inhaled Oxygen Concentration - - Weight 73.9 kg (163 lb) 09/04/2025 2:39 PM EDT Height 172.5 cm (5' 7.91 ) 09/04/2025 2:39 PM ED T Body Mass Index 24.85 09/04/2025 2:39 PM EDT documented in this encounter Functional Status * Over the past 2 weeks, how often have you been bothered by any of the following problems? Question Answer Date of Assessment Author Patient Health Questionnaire-2 Score 2 08/22 2:50 PM EDT Paulette Silva MA * Little interest or pleasure in doing things Answer Date of Assessment Author Several days 09/04/2025 2:50 PM EDT Surjit Silva MA * Feeling down, depressed, or hopeless Answer Date of Assessment Author Several days 09/04/2025 2:50 PM EDT Surjit Silva MA * Trouble falling or staying asleep, or sleeping too much Answer Date of Assessment Author Several days 09/04/2025 2:50 PM EDT Surjit Silva MA * Feeling tired or having little energy Answer Date of Assessment Author Several days 09/04/2025 2:50 PM EDT Surjit Silva MA * Poor appetite or overeating Answer Date of Assessment Author More than half the days 09/04/2025 2:50 PM EDT Paulette Knowles MA * Feeling bad about yourself - or that you are a failure or have let yourself or your family down Answer Date of Assessment Author Several days 09/04/2025 2:50 PM EDT Surjit Silva MA * Trouble concentrating on things, such as reading the newspaper or watching television Answer Date of Assessment Author Several days 09/04/2025 2:50 PM EDT Surjit Silva MA * Moving or speaking so slowly that other people could have noticed? Or the opposite - being so fidgety or restless that you have been moving around a lot more than usual. Answer Date of Assessment Author Several days 09/04/2025 2:50 PM EDT Surjit Silva MA * Thoughts that you would be better off or hurting yourself in some way Answer Date of Assessment Author Not at all 09/04/2025 2:50 PM EDT Surjit Silva MA * Patient Health Questionnaire-9 Score Answer Date of Assessment Author 9 09/04/2025 2:50 PM EDT Surjit Silva MA * How difficult have these problems made it for you to do your work, take care of things at home, or get along with other people? Answer Date of Assessment Author Somewhat difficult 09/04/2025 2:50 PM EDT Paulette Silva MA documented as of this encounter Progress Notes * Salome Garcia MD - 09/04/2025 2:45 PM EDT SUBJECTIVE Lisa Gordillo is a 25 y.o. male who presents for No chief complaint on file.. HPI Pt without significant past medical history here to establish care. Asymptomatic today. Has some symptoms of depression, but he is receiving psychotherapy. No Suicidal ideation or homicidal ideation. Problem List[1] Allergies[2] Medications Ordered Prior to Encounter[3] Review of Systems Constitutional: Negative for activity change, appetite change, chills and diaphoresis. HENT: Negative for dental problem, drooling and ear discharge. Eyes: Negative for pain and itching. Respiratory: Negative for cough, choking and chest tightness. Cardiovascular: Negative for palpitations and leg swelling. Gastrointestinal: Negative for abdominal pain, anal bleeding and blood in stool. Endocrine: Negative for cold intolerance and heat intolerance. Genitourinary: Negative for flank pain, frequency and genital sores. Musculoskeletal: Negative for back pain. Neurological: Negative for light-headedness, numbness and headaches. Psychiatric/Behavioral: Negative for agitation, confusion and decreased concentration. OBJECTIVE Vitals: 09/04/25 1439 BP: (!) 141/77 BP Location: Left arm Patient Position: Sitting BP Cuff Size: Adult Pulse: 70 Resp: 20 Temp: 98.2 ??F (36.8 ??C) TempSrc: Oral SpO2: 98% Weight: 163 lb (73.9 kg) Height: 5' 7.91 (1.725 m) Physical Exam Constitutional: General: He is not in acute distress. Appearance: Normal appearance. He is not ill-appearing, toxic-appearing or diaphoretic. Cardiovascular: Rate and Rhythm: Normal rate. Heart sounds: No murmur heard. No friction rub. Pulmonary: Effort: Pulmonary effort is normal. Skin: Comments: Perifollicular erythema of the back. Neurological: Mental Status: He is alert. Assessment/Plan Assessment/Plan Diagnoses and all orders for this visit: Annual physical exam Comments: Normal cardiopulmonary exam Pt is to maintain a healthy and balanced diet Orders: - CBC auto differential; Future - Comprehensive Metabolic Panel; Future - Lipid Panel, Standard; Future - TSH with Reflex to Free T4; Future - Chlamydia/N. Gonorrhoeae RNA, TMA, Urogenitial - HIV-1/2 Antigen and Antibodies, Fourth Generation, with Reflexes; Future - Hepatitis C Antibody with Reflex to HCV, RNA, Quantitative, Real-Time PCR; Future - RPR (Monitor) with Reflex to Titer; Future - Urinalysis w/reflex microscopic; Future - Trichomonas vaginalis RNA, Qualitative, TMA, Males; Future Other depression Comments: Mild depression Pt is currently receiving psychotherapy Denies SI/HI Screen for STD (sexually transmitted disease) Comments: Currently not sexually active. Elevated BP reading w/ no diagnosis of hypertension Repeat blood pressure is 138/76. DASH diet recommended. No need to start medication for now. Folliculitis Comments: Most likely because of sweating Trial of Hibiclens. Patient is to inform us if he is not improved in the next week or so Orders: - Chlorhexidine Gluconate (Hibiclens) 4 % solution; Rinse area with water, then cover affected skin, wash gently. Rinse again thoroughly. Encounter for immunization - TDAP VACCINE 7 yrs + - FLU VACCINE TRIVALENT [id number] (Fluarix) 19 yrs + [1] There is no problem list on file for this patient. [2] No Known Allergies [3] No current outpatient medications on file prior to visit. No current facility-administered medications on file prior to visit. documented in this encounter Plan of Treatment Upcoming Encounters Date Type Department Care Team (Late st Contact Info) Description 09/06/2025 10:30 AM EDT Office Visit [facility] [address] [place] [address] Donta Witt DDS [address] [place] [address] Scheduled Orders Name Type Priority Associated Diagnoses Orde r Schedule Comprehensive Metabolic Panel Lab Routine Annual physical exam Expected: 09/04/2025 (Approximate), Expires: 09/04/2026 Lipid Panel, Standard Lab Routine Annual physical exam Expected: 09/04/2025 (Approximate), Expires: 09/04/2026 TSH with Reflex to Free T4 Lab Routine Annual physical exam Expected: 09/04/2025 (Approximate), Expires: 09/04/2026 Chlamydia/N. Gonorrhoeae RNA, TMA, Urogenitial Microbiology Routine Annual physical exam Ordered: 09/04/2025 HIV-1/2 Antigen and Antibodies, Fourth Generation, with Reflexes Lab Routine Annual physical exam Expected: 09/04/2025 (Approximate), Expires: 09/04/2026 Hepatitis C Antibody with Reflex to HCV, RNA, Quantitative, Real-Time PCR Lab Routine Annual physical exam Expected: 09/04/2025, Expires: 09/04/2026 RPR (Monitor) with Reflex to Titer Lab Routine Annual physical exam Expected: 09/04/2025, Expires: 09/04/2026 Urinalysis w/reflex microscopic Lab Routine Annual physical exam Expected: 09/04/2025, Expires: 09/04/2026 Trichomonas vaginalis RNA, Qualitative, TMA, Males Lab Routine Annual physical exam Expected: 09/04/2025, Expires: 09/04/2026 documented as of this encounter Procedures Procedure Name Priority Date/Time Associated Diagnosis Comments CBC WITH AUTO DIFFERENTIAL Routine 09/04/2025 3:56 PM EDT Annual physical exam documented in this encounter Results * CBC auto differential (09/04/2025 3:56 PM EDT) White Blood Count 8.7 4.8 - 10.8 X10*3/uL [facility] Red Blood Count 5.37 4.60 - 5.80 X10*6/uL [facility] Hemoglobin 15.3 14.0 - 18.0 g/dl [facility] Hematocrit 45.2 42.0 - 52.0 % [facility] Mean Corpuscular Volume 84.2 80.0 - 98.0 fL [facility] Mean Corpuscular Hemoglobin 28.5 27.0 - 33.0 pg [facility] Mean Corpuscular HGB Conc 33.8 31.0 - 36.0 g/dl [facility] Red Cell Distribution Width 11.6 11.0 - 16.0 % [facility] Platelet Count 244 160 - 400 X10*3/uL [facility] Mean Platelet Volume 12.0 9.4 - 12.4 fL [facility] Neutrophils Percent Auto 64.4 45 - 73 % [facility] Imm Gran Pct Auto 0.2 0.0 - 0.4 % [facility] Lymphocytes Percent Auto 26.0 20 - 40 % [facility] Monocytes Percent Auto 7.5 2 - 11 % [facility] Eosinophils Percent Auto 1.3 0 - 4 % [facility] Basophils Percent Auto 0.6 0 - 2 % [facility] NRBC Pct Auto 0.0 0.0 - 0.2 /100WBC [facility] Neutrophils Absolute Auto 5.6 2.0 - 8.3 x10*3/uL [facility] Imm Gran Abs Auto 0.02 0.00 - 0.03 X10*3/uL [facility] Lymphocytes Absolute Auto 2.3 1.2 - 4.9 X10*3/uL [facility] Monocytes Absolute Auto 0.7 0.1 - 1.2 X10*3/uL [facility] Eosinophils Absolute Auto 0.1 0.0 - 0.4 X10*3/uL [facility] Basophils Absolute Auto 0.1 0.0 - 0.2 X10*3/uL [facility] NRBC Abs Auto 0.000 0.0 - 0.012 X10*3/uL [facility] Blood Venous blood specimen / Unknown 09/04/2025 3:56 PM EDT 09/04/2025 6:05 PM EDT Salome Garcia MD LAB BLOOD ORDERABLES Final Result [facility] [address] [place] [address] [phone] documented in this encounter Visit Diagnoses Diagnosis Annual physical exam- Primary Routine general medical examination at a health care facility Other depression Screen for STD (sexually transmitted disease) Screening examination for venereal disease Elevated BP reading w/ no diagnosis of HTN Folliculitis Other specified disease of hair and hair follicles Encounter for immunization documented in this encounter Additional Health Concerns Assessment Noted Time PHQ-9 Depression Total Score: 9 09/04/20 25 2:50 PM EDT documented as of this encounter Care Teams Technician Terminal And Repeater Relationship Specialty Start Date End Date Salome Garcia MD [address] [place] [id number] PCP - General Internal Medicine 10/14/25 documented as of this encounter
[2025-09-04 18:07] LABS: MANUAL DIFF FLAG NO
[2025-09-04 18:20] LABS: Hematocrit 45.2 % (42.0-52.0); Hemoglobin 15.3 g/dl (14.0-18.0); Imm Gran Abs Auto 0.02 X10*3/uL (0.00-0.03); Imm Gran Pct Auto 0.2 % (0.0-0.4); Lymphocytes Absolute Auto 2.3 X10*3/uL (1.2-4.9); Mean Corpuscular HGB Conc 33.8 g/dl (31.0-36.0); Mean Corpuscular Hemoglobin 28.5 pg (27.0-33.0); Mean Corpuscular Volume 84.2 fL (80.0-98.0); NRBC Abs Auto 0.000 X10*3/uL (0.0-0.012); NRBC Pct Auto 0.0 /100WBC (0.0-0.2); Platelet Count 244 X10*3/uL (160-400); Red Blood Count 5.37 X10*6/uL (4.60-5.80); White Blood Count 8.7 X10*3/uL (4.8-10.8)
[2025-09-04 18:26] LABS: Appearance Urine Clear; Glucose Urine UA Negative (Negative); PH 5.0 (5.0-9.0); Specific Gravity - Urine 1.020 (1.005-1.025)
--- OUTSIDE RECORDS SUMMARY | 2025-09-04 18:27 | XMS_ITS | Encounter Summary ---
Author Organization [facility] Address [address] [place] [address] Phone Care Team Providers Care Tongue And Groove Machine Operator Name Role Phone Paulette Pantoja MD Primary Care Provider [phone] Encounter Details Date Type Department Care Team (Late st Contact Info) Description 10/03/2013 Documentation [facility] [place] Family Medicine [address] [place] [address] Family Medicine, Physician [address] [place], [place] [phone] Social History Tobacco Use Types Packs/Day Years Used Date Smoking Tobacco: Never Assessed Sex and Gender Information Value Date Recorded Sex Assigned at Not on file Legal Sex Male 4:58 PM EDT Gender Identity Male 07/15/2020 9:37 AM EDT Sexual Orientation Straight 03/24/2023 10 :55 AM EDT documented as of this encounter Plan of Treatment Not on file documented as of this encounter Visit Diagnoses Not on filedocumented in this encounter Care Teams Tongue And Groove Machine Operator Relationship Specialty Start Date End Date Paulette Pantoja MD [address] [place] [address] [place] [address] PCP - General 07/02/17 11/03/23 documented as of this encounter
--- OUTSIDE RECORDS SUMMARY | 2025-09-04 18:27 | XMS_ITS | Encounter Summary ---
Author Organization [employer] Address [address] [facility] [address] [place] [address] Care Team Providers Care Fleet Technician Name Role Phone Salome Garcia MD Primary Care Provider [phone] Encounter Details Date Type Department Care Team (Latest Contact Info) Description 09/04/2025 Travel Social History Tobacco Use Types Packs/Day Years Used Date Smoking Tobacco: Never Smokeless Tobacco: Never Alcohol Use Standard Drinks/Week Comments Never 0 [...] PM EDT documented as of this encounter Functional Status * Over the [...] Silva MA documented as of this encounter Plan of Treatment Upcoming Encounters Date Type Department Care Team (Late st Contact Info) Description 09/06/2025 10:30 AM EDT Office Visit [facility] [address] [place] [address] Donta Witt, DIVYA [address] [place] [address] documented as of this encounter Visit Diagnoses Not on filedocumented in this encounter Additional Health Concerns Assessment Noted Time PHQ-9 Depression Total Score: 9 09/04/20 2:50 PM EDT documented as of this encounter Care Teams Fleet Technician Relationship Specialty Start Date End Date Salome Garcia MD [address] [place] [address] PCP - General Internal Medicine 09/04/25 documented as of this encounter
--- OUTSIDE RECORDS SUMMARY | 2025-09-04 18:27 | XMS_ITS | Encounter Summary ---
Author Organization [facility] Address [address] [place] [address] Phone Care Team Providers Care Social Services Specialist Name Role Phone Paulette Pantoja MD Primary Care Provider [phone] Encounter Details Date Type Department Care Team (Late st Contact Info) Description 06/30/2013 Documentation [facility] [place] Family Medicine [address] [place] [address] Family Medicine, Physician [address] [place], [place] [phone] Social History Tobacco Use Types Packs/Day Years [...] on filedocumented in this encounter Care Teams Social Services Specialist Relationship Specialty Start Date End Date Paulette Pantoja MD [address] [place] [address] [place] [address] PCP - General 07/02/17 11/03/23 documented as of this encounter
--- OUTSIDE RECORDS SUMMARY | 2025-09-04 18:27 | XMS_ITS | Encounter Summary ---
Author Organization [facility] Address [address] [place] [address] Phone Care Team Providers Care Laborer Golf Course Name Role Phone Paulette Pantoja MD Primary Care Provider [phone] Encounter Details Date Type Department Care Team (Late st Contact Info) Description 07/19/2015 [place]ation [facility] [place] [address] [place] [address] Family Medicine, Physician [address] [place], [place] [phone] Social History Tobacco Use Types Packs/Day Years [...] on filedocumented in this encounter Care Teams Laborer Golf Course Relationship Specialty Start Date End Date Paulette Pantoja MD [address] [place] [address] [place] [address] PCP - General 07/02/17 11/03/23 documented as of this encounter
--- OUTSIDE RECORDS SUMMARY | 2025-09-04 18:27 | XMS_ITS | Encounter Summary ---
Author Organization [facility] Address [address] [place] [address] Phone Care Team Providers Care Arc Cutter Name Role Phone Paulette Pantoja MD Primary Care Provider [phone] Encounter Details Date Type Department Care Team (Late st Contact Info) Description 10/03/2013 Documentation [facility] [place] Family Medicine [address] [place] [address] Family Medicine, Physician [address] [place], [place] [address] Social History Tobacco Use Types Packs/Day Years [...] on filedocumented in this encounter Care Teams Arc Cutter Relationship Specialty Start Date End Date Paulette Pantoja MD [address] [place] [address] [place] [address] PCP - General 07/02/17 11/03/23 documented as of this encounter
--- OUTSIDE RECORDS SUMMARY | 2025-09-04 18:27 | XMS_ITS | Clinical Summary ---
Author Organization [facility]' Address [address] [place] [address] Phone Care Team Providers Care Event Specialist Name Role Phone Unavailable Primary Care Provider Unavailabl e Allergies No known active allergies Medications acetaminophen 500 MG tabletIndicatio ns:Pilonidal cyst with abscess 2 tabs every 4 to 6 hours for pain 50 tablet 1 7 Active Additional Information Patient not taking.Reported on 07/12/2019 traMADol 50 MG tablet Take 50 mg by mouth every 4 (four) hours as needed. for pain 0 Active Active Problems Problem Noted Date Diagnosed Date Social anxiety disorder 04/21/2023 Overview (08/09/2023): / - Pt is anxious in social situations, is avoidant of situations that involve social interactions with unfamiliar people, does not make plans with friends, worries what other people think of him, feels awkward and annoying to others. 08/14 - Pt is reporting that he has been feeling more positive and is hanging out with peers more without significant rumination over what others are thinking. Will meet one more time and discontinue treatment or make a referral into the community as needed. Assessment & Plan (09/16/2023 6:02 PM EDT): Patient with social anxiety, avoidance of some social situations in the context of interruption of social and academic development due to the COVID pandemic, history of separation/ possible feelings of abandonment from father, possible presence of ADD impacting social skills. Patient will benefit from increasing engagement in social situations and evaluation for ADD. PLAN: Follow up with [facility] for support in managing anxiety and organizational skills, consider an evaluation for ADHD, bridge to outpatient services as needed. Patient goal is to understand himself and how to manage school, social interactions - feel more confident. Behavioral Recommendations: Pt will increase his positive statements and feeling of confidence in himself Pt will increase his engagement in social interactions and build confidence in social situations c. Pt will learn strategies to improve organization, time management, etc. Assessment & Plan (08/09/2023 4:27 PM EDT): Patient with social anxiety, avoidance of some social situations in the context of interruption of social and academic development due to the COVID pandemic, history of separation/ possible feelings of abandonment from father, possible presence of ADD impacting social skills. Patient will benefit from increasing engagement in social situations and evaluation for ADD. PLAN: Follow up with [facility] for support in managing anxiety and organizational skills, consider an evaluation for ADHD, bridge to outpatient services as needed. Patient goal is to understand himself and how to manage school, social interactions - feel more confident. Behavioral Recommendations: Pt will increase his positive statements and feeling of confidence in himself Pt will increase his engagement in social interactions and build confidence in social situations c. Pt will learn strategies to improve organization, time management, etc. Assessment & Plan (06/07/2023 3:50 PM EDT): Patient with social anxiety, avoidance of some social situations in the context of interruption of social and academic development due to the COVID pandemic, history of separation/ possible feelings of abandonment from father, possible presence of ADD impacting social skills. Patient will benefit from increasing engagement in social situations and evaluation for ADD. PLAN: Follow up with [facility] for support in managing anxiety and organizational skills, consider an evaluation for ADHD, bridge to outpatient services as needed. Patient goal is to understand himself and how to manage school, social interactions - feel more confident. Behavioral Recommendations: Pt will increase his positive statements and feeling of confidence in himself Pt will increase his engagement in social interactions and build confidence in social situations c. Pt will learn strategies to improve organization, time management, etc. Assessment & Plan (05/14/2023 9:54 AM EDT): Patient with social anxiety, avoidance of some social situations in the context of interruption of social and academic development due to the COVID pandemic, history of separation/ possible feelings of abandonment from father, possible presence of ADD impacting social skills. Patient will benefit from increasing engagement in social situations and evaluation for ADD. PLAN: Follow up with [facility] for support in managing anxiety and organizational skills, consider an evaluation for ADHD, bridge to outpatient services as needed. Patient goal is to understand himself and how to manage school, social interactions - feel more confident. Behavioral Recommendations: Pt will increase his positive statements and feeling of confidence in himself Pt will increase his engagement in social interactions and build confidence in social situations c. Pt will learn strategies to improve organization, time management, etc. Assessment & Plan (04/21/2023 11:11 PM EDT): Patient with social anxiety, avoidance of some social situations in the context of interruption of social and academic development due to the COVID pandemic, history of separation/ possible feelings of abandonment from father, possible presence of ADD impacting social skills. Patient will benefit from increasing engagement in social situations and evaluation for ADD. PLAN: Follow up with [facility] for support in managing anxiety and organizational skills, consider an evaluation for ADHD, bridge to outpatient services as needed. Patient goal is to understand himself and how to manage school, social interactions - feel more confident. Behavioral Recommendations: Pt will increase his positive statements and feeling of confidence in himself Pt will increase his engagement in social interactions and build confidence in social situations c. Pt will learn strategies to improve organization, time management, etc. 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 Immunizations Immunization Administration Dates Next Due COVID-19 Moderna, monovalent , 12+ years 11/11/2021,10/14/2021 COVID-19 Pfizer, bivalent, 12+ years 03/24/2023 DTaP 5 08/03/2006, 4,2002,10/16,2002 H1N1 11/29/2009,10/24/2009 HPV, Quadrivalent 01/01/2014,08/29/2013,06/29/20 13 Hep A, ped/adol 07/03/2014,06/03/2011 Hep B, ped/adol 03/15/2003,2002,2002 Hib (PRP-T) 09/17/2003, 3,2002,07/26 IPV 08/03/2006, 3,2002,07/26 Influenza Split 10/02/2013,09/01/2012 Influenza, injectable, MDCK, preservative free, quadrivalent 10/14/2021 Influenza, injectable, quadr ivalent, preservative free 09/15/2020,10/19/2018,08/13/2017,07/28,07/18/2015 Influenza, injectable, trivalent 11/29/2009 Influenza, intranasal, quadrivalent 08/26/2014 MMR 08/03/2006,06/14/2003 Meningococcal B Trumenba 09/15/2020,07/12/2019 Meningococcal Conj (Menactra) MCV4P 07/12/2019,0 06/29/2013 Pneumococcal Conjugate 09/17/2003,2002,2002,07/26 Tdap 06/29/2013 Varicella 08/15/2007,06/14/2003 Family History Medical History Relation Name Comments No Known Problems Father Sherwin Mental illness Half-Sister delta Mejia Diabetes Maternal Grandmother Hypertension Maternal Grandmother Hyperlipidemia Mother Betsy Hypertension Mother Betsy Obesity Mother Betsy Relation Name Status Comments Father Sherwin Alive Half-Brother eboni mejia Alive Half-Sister delta Mejia Alive Maternal Grandfather Materna l grandfather: , Coronary artery disease Maternal Grandmother Alive Mother Betsy Alive Paternal Grandfather Alive Paternal Grandmother Sister Penny Alive Social History Tobacco Use Types Packs/Day Years Used Date Smoking Tobacco: Never Smokeless Tobacco: Never Comments:Never smoker Alcohol Use Standard Drinks/Week Comments No 0 (1 standard drink = 0.6 oz pur e alcohol) Hunger/Food Answer Date Recorded In the last 12 months, did y ou or your family ever eat less than you felt you should because there wasn't enough money for food? No 04/06/2023 Stable Housing Answer Date Recorded Are you worried that in the next 2 months you may not have stable housing? No 04/06/2023 Transportation Concerns Answer Date Rec orded In the last 12 months, have you or your family ever had to go without healthcare because you didn't have a way to get there? No 04/06/2023 Hazards in Home Answer Date Recorded Think about the place you li ve. Do you have problems with any of the following? Pests (mice or roaches), mold, no/not working smoke detectors, water leaks, no window guards. No 2022 Financing Utilities Answer Date Recorde d In the last 12 months, has t he electric, gas, oil, or water company threatened to shut off your services in your home? No 04/06/2023 Safety at Home Answer Date Recorded Are you or your family worried about feeling saf e in your home? No 04/06/2023 Outside Support Answer Date Recorded Do you feel that you need mo re support from other people or programs to help you care for yourself or your family? No 04/06/2023 Understanding Health Concerns Answer Da te Recorded Do you need help understandi ng your or your child's healthcare needs (diagnosis, medications, plan, etc.)? No 04/06/2023 Financing Health Concerns Answer Date R ecorded In the last 12 months, was t here a time when your child needed to see a doctor or get medications or supplies but could not because of cost? No 04/06/2023 Missing School or Work Answer Date Donell rded Did you or your child miss s chool or work because of a health problem that could have been avoided? No 04/06/2023 Sex and Gender Information Value Date Recorded Sex Assigned at Not on file Legal Sex Male 4:58 PM EDT Gender Identity Male 07/15/2020 9:37 AM EDT Sexual Orientation Straight 03/24/2023 10 :55 AM EDT Last Filed Vital Signs Vital Sign Reading Time Taken Comments Blood Pressure 122/79 03/24/2023 10:06 AM EDT Pulse 72 03/24/2023 10:06 AM EDT Temperature 36.7 C (98.1 F) 07/09/2021 3:18 PM EDT Respiratory Rate - - Oxygen Saturation - - Inhaled Oxygen Concentration - - Weight 61.4 kg (135 lb 6.4 oz) 03/24/2023 10:06 AM EDT Height 172.1 cm (5' 7.75 ) 03/24/2023 10:06 AM E DT Body Mass Index 20.74 03/24/2023 10:06 AM EDT Plan of Treatment Health Maintenance Due Date Last Done Comments DTaP,Tdap,and Td Vaccines (7 - Td or Tdap) 06/29/2023 06/29/2013, 08/03/2006, 12/27/2003, Additional history exists Influenza Vaccines (#1) 2025 10/14/20, 09/15/2020, 10/19/2018, Additional history exists COVID-19 Vaccine (2024-2 6 season) 2025 03/24/2023, 11/11/2021, 10/14/2021 Hepatitis B Vaccines Completed 03/15/2003, 2002, 2002 HIB Vaccines Completed 09/17/2003, 11/23, 2002, Additional history exists Pneumococcal Vaccine Completed 09/17/2003, 2002, 2002, Additional history exists IPV Vaccines Completed 08/03/2006, 02/21, 2002, Additional history exists MMR Vaccines Completed 08/03/2006, 06/14/2003 Varicella Vaccines Completed 08/15/2007, 06/14/2003 HPV Vaccines Completed 01/01/2014, 06/2013, 06/29/2013 Hepatitis A Vaccines Completed 07/03/2014, 06/03/20 11 Meningococcal Vaccine Completed 07/12/2019, 013 Men B Vaccine Completed 09/15/2020, 07/12/2019
--- OUTSIDE RECORDS SUMMARY | 2025-09-04 18:27 | XMS_ITS | Encounter Summary ---
Author Organization [facility] Address [address] [place] [address] Phone Care Team Providers Care Childhood Teacher Name Role Phone Paulette Pantoja MD Primary Care Provider [phone] Encounter Details Date Type Department Care Team (Late st Contact Info) Description 07/04/2014 [place]ation [facility] [place] [address] [place] [address] Family Medicine, Physician [address] [place], [place] [id number] Social History Tobacco Use Types Packs/Day Years [...] on filedocumented in this encounter Care Teams Childhood Teacher Relationship Specialty Start Date End Date Paulette Pantoja MD [address] [place] [address] [place] [address] PCP - General 07/02/17 11/03/23 documented as of this encounter
--- OUTSIDE RECORDS SUMMARY | 2025-09-04 18:27 | XMS_ITS | Encounter Summary ---
Author Organization [facility] Address [address] [place] [address] Phone Care Team Providers Care Fur Machine Operator Name Role Phone Paulette Pantoja MD Primary Care Provider [phone] Encounter Details Date Type Department Care Team (Late st Contact Info) Description 07/07/2016 Documentation [facility] [place] Family Medicine [address] [place] [address] Family Medicine, Physician [address] [place], [place] [address] Social History Tobacco Use Types Packs/Day Years Used Date Smoking Tobacco: Never Comments:Never smoker Sex and Gender Information Value Date Recorded Sex Assigned at Not on file Legal Sex Male 4:58 PM EDT Gender Identity Male 07/15/2020 9:37 AM EDT Sexual Orientation Straight 03/24/2023 10 :55 AM EDT documented as of this encounter Plan of Treatment Not on file documented as of this encounter Visit Diagnoses Not on filedocumented in this encounter Care Teams Fur Machine Operator Relationship Specialty Start Date End Date Paulette Pantoja MD [address] [place] [address] [place] [address] PCP - General 07/02/17 11/03/23 documented as of this encounter
--- OUTSIDE RECORDS SUMMARY | 2025-09-04 18:27 | XMS_ITS | Encounter Summary ---
Author Organization [facility] Address [address] [place] [address] Phone Care Team Providers Care Teletype Operator Name Role Phone Paulette Pantoja MD Primary Care Provider [phone] Encounter Details Date Type Department Care Team (Late st Contact Info) Description 08/27/2014 Documentation [facility] [place] Family Medicine [address] [place] [address] Family Medicine, Physician [address] [place], [place] [address] Social History Tobacco Use Types Packs/Day Years [...] on filedocumented in this encounter Care Teams Teletype Operator Relationship Specialty Start Date End Date Paulette Pantoja MD [address] [place] [address] [place] [address] PCP - General 07/02/17 11/03/23 documented as of this encounter
--- OUTSIDE RECORDS SUMMARY | 2025-09-04 18:27 | XMS_ITS | Encounter Summary ---
Author Organization [facility] Address [address] [place] [address] Phone Care Team Providers Care Hopper Operator Name Role Phone Paulette Pantoja MD Primary Care Provider [phone] Encounter Details Date Type Department Care Team (Late st Contact Info) Description 10/03/2013 Documentation [facility] [place] Family Medicine [address] [place] [address] Family Medicine, Physician [address] [place], [place] [address] Social History Tobacco Use Types Packs/Day Years [...] on filedocumented in this encounter Care Teams Hopper Operator Relationship Specialty Start Date End Date Paulette Pantoja MD [address] [place] [address] [place] [address] PCP - General 07/02/17 11/03/23 documented as of this encounter
--- OUTSIDE RECORDS SUMMARY | 2025-09-04 18:27 | XMS_ITS | Encounter Summary ---
Author Organization [facility] Address [address] [place] [address] Phone Care Team Providers Care Fibre Optics Jointer Name Role Phone Paulette Pantoja MD Primary Care Provider [phone] Encounter Details Date Type Department Care Team (Late st Contact Info) Description 08/27/2014 Documentation [facility] [place] Medicine [address] [place] [address] Family Medicine, Physician [address] [place], [place] [address] Social History Tobacco Use Types Packs/Day Years [...] on filedocumented in this encounter Care Teams Fibre Optics Jointer Relationship Specialty Start Date End Date Paulette Pantoja MD [address] [place] [address] [place] [address] PCP - General 07/02/17 11/03/23 documented as of this encounter
--- OUTSIDE RECORDS SUMMARY | 2025-09-04 18:27 | XMS_ITS | Encounter Summary ---
Author Organization [facility] Address [address] [place] [address] Phone Care Team Providers Care Shredder Picker Name Role Phone Paulette Pantoja MD Primary Care Provider [phone] Encounter Details Date Type Department Care Team (Late st Contact Info) Description 09/01/2012 Documentation [facility] [place] Family Medicine [address] [place] [address] Family Medicine, Physician [address] [place], [place] [address] Social History Tobacco Use Types Packs/Day Years [...] on filedocumented in this encounter Care Teams Shredder Picker Relationship Specialty Start Date End Date Paulette Pantoja MD [address] [place] [address] [place] [address] PCP - General 07/02/17 11/03/23 documented as of this encounter
--- OUTSIDE RECORDS SUMMARY | 2025-09-04 18:27 | XMS_ITS | Encounter Summary ---
Author Organization [facility] Address [address] [place] [address] Phone Care Team Providers Care Swinging Cut Off Saw Operator Name Role Phone Paulette Pantoja MD Primary Care Provider [phone] Encounter Details Date Type Department Care Team (Late st Contact Info) Description 07/07/2016 Documentation [facility] [place] Family Medicine [address] [place] [address] Family Medicine, Physician [address] [place], [place] [address] Social History Tobacco Use Types Packs/Day Years [...] on filedocumented in this encounter Care Teams Swinging Cut Off Saw Operator Relationship Specialty Start Date End Date Paulette Pantoja MD [address] [place] [address] [place] [address] PCP - General 07/02/17 11/03/23 documented as of this encounter
--- OUTSIDE RECORDS SUMMARY | 2025-09-04 18:27 | XMS_ITS | Encounter Summary ---
Author Organization [facility] Address [address] [place] [address] Phone Care Team Providers Care Motor Tune Up Specialist Name Role Phone Paulette Pantoja MD Primary Care Provider [phone] Encounter Details Date Type Department Care Team (Late st Contact Info) Description 07/19/2015 Documentation [facility] [place] [address] [place] [address] Family Medicine, Physician [address] [place], [place] [address] Social History Tobacco Use Types Packs/Day Years [...] on filedocumented in this encounter Care Teams Motor Tune Up Specialist Relationship Specialty Start Date End Date Paulette Pantoja MD [address] [place] [address] [place] [address] PCP - General 07/02/17 11/03/23 documented as of this encounter
--- OUTSIDE RECORDS SUMMARY | 2025-09-04 18:27 | XMS_ITS | Encounter Summary ---
Author Organization [facility] Address [address] [place] [address] Phone Care Team Providers Care J2Ee Developer Name Role Phone Paulette Pantoja MD Primary Care Provider [phone] Encounter Details Date Type Department Care Team (Late st Contact Info) Description 07/07/2016 Documentation [facility] [place] [address] [place] [address] Family Medicine, Physician [address] [place], [place] [address] Social History Tobacco Use Types Packs/Day Years [...] on filedocumented in this encounter Care Teams J2Ee Developer Relationship Specialty Start Date End Date Paulette Pantoja MD [address] [place] [address] [place] [address] PCP - General 07/02/17 11/03/23 documented as of this encounter
--- OUTSIDE RECORDS SUMMARY | 2025-09-04 18:27 | XMS_ITS | Encounter Summary ---
Author Organization [facility] Address [address] [place] [address] Phone Care Team Providers Care Supervisor Facepiece Line Name Role Phone Paulette Pantoja MD Primary Care Provider [phone] Encounter Details Date Type Department Care Team (Late st Contact Info) Description 07/04/2014 Documentation [facility] [place] [address] [place] [address] Family Medicine, Physician [address] [place], [place] [address] Social History Tobacco Use Types Packs/Day Years [...] on filedocumented in this encounter Care Teams Supervisor Facepiece Line Relationship Specialty Start Date End Date Paulette Pantoja MD [address] [place] [address] [place] [address] PCP - General 07/02/17 11/03/23 documented as of this encounter
--- OUTSIDE RECORDS SUMMARY | 2025-09-04 18:27 | XMS_ITS | Encounter Summary ---
Author Organization [facility] Address [address] [place] [address] Phone Care Team Providers Care Roving Can Tender Name Role Phone Paulette Pantoja MD Primary Care Provider [phone] Encounter Details Date Type Department Care Team (Late st Contact Info) Description 07/19/2015 Documentation [facility] [place] Family Medicine [address] [place] [address] Family Medicine, Physician [address] [place], [place] [address] Social History Tobacco Use Types Packs/Day Years [...] on filedocumented in this encounter Care Teams Roving Can Tender Relationship Specialty Start Date End Date Paulette Pantoja MD [address] [place] [address] [place] [address] PCP - General 07/02/17 11/03/23 documented as of this encounter
--- OUTSIDE RECORDS SUMMARY | 2025-09-04 18:27 | XMS_ITS | Encounter Summary ---
Author Organization [facility] Address [address] [place] [address] Phone Care Team Providers Care Rotary Envelope Machine Operator Name Role Phone Paulette Pantoja MD Primary Care Provider [phone] Encounter Details Date Type Department Care Team (Late st Contact Info) Description 06/30/2013 Documentation [facility] [place] Family Medicine [address] [place] [address] Family Medicine, Physician [address] [place], [place] [address] Social History Tobacco Use Types Packs/Day Years [...] on filedocumented in this encounter Care Teams Rotary Envelope Machine Operator Relationship Specialty Start Date End Date Paulette Pantoja MD [address] [place] [address] [place] [address] PCP - General 07/02/17 11/03/23 documented as of this encounter
--- OUTSIDE RECORDS SUMMARY | 2025-09-04 18:27 | XMS_ITS | Encounter Summary ---
Author Organization [facility] Address [address] [place] [address] Phone Care Team Providers Care Security Guard Name Role Phone Paulette Pantoja MD Primary Care Provider [phone] Encounter Details Date Type Department Care Team (Late st Contact Info) Description 01/02/2014 Documentation [facility] [place] [address] [place] [address] Family Medicine, Physician [address] [place], [place] [address] Social History Tobacco Use Types Packs/Day Years [...] on filedocumented in this encounter Care Teams Security Guard Relationship Specialty Start Date End Date Paulette Pantoja MD [address] [place] [address] [place] [address] PCP - General 07/02/17 11/03/23 documented as of this encounter
--- OUTSIDE RECORDS SUMMARY | 2025-09-04 18:28 | XMS_ITS | Encounter Summary ---
Author Organization [facility] Address [address] [place] [address] Phone Care Team Providers Care Toys Inspector Name Role Phone Paulette Pantoja MD Primary Care Provider [phone] Encounter Details Date Type Department Care Team (Late st Contact Info) Description 07/07/2017 Documentation [facility] [place] Family Medicine [address] [place] [address] Family Medicine, Physician [address] [place], [place] [id number] Social History Tobacco Use Types Packs/Day Years [...] on filedocumented in this encounter Care Teams Toys Inspector Relationship Specialty Start Date End Date Paulette Pantoja MD [address] [place] [address] [place] [address] PCP - General 07/02/17 11/03/23 documented as of this encounter
--- OUTSIDE RECORDS SUMMARY | 2025-09-04 18:28 | XMS_ITS | Encounter Summary ---
Author Organization [facility] Address [address] [place] [address] Phone Care Team Providers Care Retail Business Manager Name Role Phone Paulette Pantoja MD Primary Care Provider [phone] Encounter Details Date Type Department Care Team (Late st Contact Info) Description 06/04/2011 Documentation [facility] [place] [address] [place] [address] Family Medicine, Physician [address] [place], [place] [address] Social History Tobacco Use Types Packs/Day Years [...] on filedocumented in this encounter Care Teams Retail Business Manager Relationship Specialty Start Date End Date Paulette Pantoja MD [address] [place] [address] [place] [address] PCP - General 07/02/17 11/03/23 documented as of this encounter
--- OUTSIDE RECORDS SUMMARY | 2025-09-04 18:28 | XMS_ITS | Encounter Summary ---
Author Organization [facility] Address [address] [place] [address] Phone Care Team Providers Care Patient Registration Clerk Name Role Phone Paulette Pantoja MD Primary Care Provider [phone] Encounter Details Date Type Department Care Team (Late st Contact Info) Description 06/09/2012 Documentation [facility] [place] Family Medicine [address] [place] [address] Family Medicine, Physician [address] [place], [place] [address] Social History Tobacco Use Types Packs/Day Years [...] on filedocumented in this encounter Care Teams Patient Registration Clerk Relationship Specialty Start Date End Date Paulette Pantoja MD [address] [place] [address] [place] [address] PCP - General 07/02/17 11/03/23 documented as of this encounter
--- OUTSIDE RECORDS SUMMARY | 2025-09-04 18:28 | XMS_ITS | Encounter Summary ---
Author Organization [facility] Address [address] [place] [address] Phone Care Team Providers Care Linseed Cake Trimmer Name Role Phone Paulette Pantoja MD Primary Care Provider [phone] Encounter Details Date Type Department Care Team (Late st Contact Info) Description 06/04/2011 Documentation [facility] [place] Family Medicine [address] [place] [address] Family Medicine, Physician [address] [place], [place] [address] Social History Tobacco Use Types Packs/Day Years [...] on filedocumented in this encounter Care Teams Linseed Cake Trimmer Relationship Specialty Start Date End Date Paulette Pantoja MD [address] [place] [address] [place] [address] PCP - General 07/02/17 11/03/23 documented as of this encounter
--- OUTSIDE RECORDS SUMMARY | 2025-09-04 18:28 | XMS_ITS | Clinical Summary ---
Author Organization [employer] Address [address] [place] [address] [address] [place] [address] Care Team Providers Care Freedom Of Information Officer Name Role Phone Salome Garcia MD Primary Care Provider Allergies No known active allergies Medications Chlorhexidine Gluconate (Hibiclens) 4 % solutionIndicat ions:Folliculit is Rinse area with water, then cover affected skin, wash gently. Rinse again thoroughly. 236 mL 1 09/04/2025 Active Active Problems No known active problems Encounters Date Type Department Care Team Description 09/04/2025 2:45 PM EDT Office Visit [facility] [address] [place] [address] Salome Garcia MD Annual physical exam (Primary Dx); Other depression; Screen for STD (sexually transmitted disease); Elevated BP reading w/ no diagnosis of HTN; Folliculitis; Encounter for immunization 09/04/2025 Travel 08/27/2025 Patient Outreach [facility] [address] [place] [address] Bhavin Castro MD Pre-visit Planning (Pre visit planning unable to LVM ) from Last 3 Months Immunizations Immunization Administration Dates Next Due Influenza, seasonal, injectable, preservative fr ee 09/04/2025 Tdap 09/04/2025 Family History Medical History Relation Name Comments Bipolar disorder Mother Diabetes type II Mother Hypertension Mother Relation Name Status Comments Mother Social History Tobacco Use Types Packs/Day Years [...] Orientation Straight 09/04/2025 4: 33 PM EDT Last Filed Vital Signs Vital Sign [...] Mass Index 24.85 09/04/2025 2:39 PM EDT Plan of Treatment Upcoming Encounters Date Type Department Care Team (Late st Contact Info) Description 09/06/2025 10:30 AM EDT Office Visit [facility] [address] [place] [address] Witt Donta, DDS [address] [place] [address] Health Maintenance Due Date Last Done Comments Dental Oral Exam 2002 Dental Prophylaxis 2002 Dental X-Ray: Bitewings 2002 Dental X-Ray: Full Mouth 2002 HIV Screening 2002 Disability Screening 2002 Family Planning (PISQ) 2017 Hepatitis C Screening 2020 Chlamydia and Gonorrhea Screening 03/24/2024 03/24/2023 COVID-19 Vaccine ( season) 2025 03/24/2023, 11/11/2021, 10/14/2021 Depression Monitoring 03/05/2026 09/04/2025, 025 Alcohol/Substance Use Screening 09/04/2026 09/04/2025 SDOH Screening 09/04/2026 09/04/2025 Tobacco Screening 09/04/2026 09/04/2025 DTaP/Tdap/Td Vaccines (8 - Td or Tdap) 09/04/2035 09/04/2025, 06/29/2013, 08/03/2006, Additional history exists Zoster Vaccines (1 of 2) 2052 RSV Patients and Patients Aged 60 years or older (1 - 1-dose 75+ series) 2077 Hepatitis B Vaccines Completed 03/15/2003, 2002, 2002 HIB Vaccines Completed 09/17/2003, 11/23, 2002, Additional history exists Pneumococcal Vaccine: Pediatrics (0 to 5 Years) and At-Risk Patients (6 to 49) Years Aged Out 09/17/2003, 2002, 2002, Additional history exists No longer eligible based on patient's age to complete this topic IPV Vaccines Completed 08/03/2006, 02/21, 2002, Additional history exists HPV Vaccines Completed 01/01/2014, 06/2013, 06/29/2013 Hepatitis A Vaccines Completed 07/03/2014, 06/03/20 11 Meningococcal Vaccine Completed 07/12/2019, 013 Meningococcal B Vaccine Completed 09/15/2020, 07/12 Influenza Vaccine Completed 09/04/2025, , 09/15/2020, Additional history exists RSV under 20 months Aged Out No longe r eligible based on patient's age to complete this topic Rotavirus Vaccines Aged Out No longer eligible based on patient's age to complete this topic Procedures Procedure Name Priority Date/Time Associated Diagnosis Comments CBC WITH AUTO DIFFERENTIAL Routine 09/04/2025 3:56 PM EDT Annual physical exam from Last 3 Months Results * CBC auto differential (09/04/2025 3:56 PM EDT) White Blood Count 8.7 4.8 - 10.8 X10*3/uL [facility] Red Blood Count 5.37 4.60 - 5.80 X10*6/uL [facility] Hemoglobin 15.3 14.0 - 18.0 g/dl [facility] Hematocrit 45.2 42.0 - 52.0 % [facility] Mean Corpuscular Volume 84.2 80.0 - 98.0 fL [facility] Mean Corpuscular Hemoglobin 28.5 27.0 - 33.0 pg [facility] Mean Corpuscular HGB Conc 33.8 31.0 - 36.0 g/dl [facility] Red Cell Distribution Width 11.6 11.0 - 16.0 % [facility] Platelet Count 244 160 - 400 X10*3/uL [facility] Mean Platelet Volume 12.0 9.4 - 12.4 fL [facility] Neutrophils Percent Auto 64.4 45 - 73 % [facility] Imm Gran Pct Auto 0.2 0.0 - 0.4 % [facility] Lymphocytes Percent Auto 26.0 20 - 40 % [facility] Monocytes Percent Auto 7.5 2 - 11 % [facility] Eosinophils Percent Auto 1.3 0 - 4 % [facility] Basophils Percent Auto 0.6 0 - 2 % [facility] NRBC Pct Auto 0.0 0.0 - 0.2 /100WBC [facility] Neutrophils Absolute Auto 5.6 2.0 - 8.3 x10*3/uL [facility] Imm Gran Abs Auto 0.02 0.00 - 0.03 X10*3/uL [facility] Lymphocytes Absolute Auto 2.3 1.2 - 4.9 X10*3/uL [facility] Monocytes Absolute Auto 0.7 0.1 - 1.2 X10*3/uL [facility] Eosinophils Absolute Auto 0.1 0.0 - 0.4 X10*3/uL [facility] Basophils Absolute Auto 0.1 0.0 - 0.2 X10*3/uL [facility] NRBC Abs Auto 0.000 0.0 - 0.012 X10*3/uL [facility] Blood Venous blood specimen / Unknown 09/04/2025 3:56 PM EDT 09/04/2025 6:05 PM EDT us Salome Garcia MD LAB BLOOD ORDERABLES Final Result [facility] [address] [place] [address] [phone] from Last 3 Months Insurance [facility] [address] MEDICAID STAND ADULT Care Teams Freedom Of Information Officer Relationship Specialty Start Date End Date Salome Garcia MD [address] [place] [phone] PCP - General Internal Medicine 09/04/25
--- OUTSIDE RECORDS SUMMARY | 2025-09-04 18:28 | XMS_ITS | Encounter Summary ---
Author Organization [facility] Address [address] [place] [address] Phone Care Team Providers Care Patient Safety Officer Name Role Phone Paulette Pantoja MD Primary Care Provider [phone] Encounter Details Date Type Department Care Team (Late st Contact Info) Description 07/29/2016 Documentation [facility] [place] Family Medicine [address] [place] [address] Family Medicine, Physician [address] [place], [place] [address] Social History Tobacco Use Types Packs/Day Years [...] filedocumented in this encounter Care Teams Patient Safety Officer Relationship Specialty Start Date End Date Paulette Pantoja MD [address] [place] [address] [place] [address] PCP - General 07/02/17 11/03/23 documented as of this encounter
--- OUTSIDE RECORDS SUMMARY | 2025-09-04 18:28 | XMS_ITS | Encounter Summary ---
Author Organization [facility] Address [address] [place] [address] Phone Care Team Providers Care Counter Top Assembler Name Role Phone Paulette Pantoja MD Primary Care Provider [phone] Encounter Details Date Type Department Care Team (Late st Contact Info) Description 06/10/2012 Documentation [facility] [place] Family Medicine [address] [place] [address] Family Medicine, Physician [address] [place], [place] [address] Social History Tobacco Use Types Packs/Day Years [...] on filedocumented in this encounter Care Teams Counter Top Assembler Relationship Specialty Start Date End Date Paulette Pantoja MD [address] [place] [address] [place] [address] PCP - General 07/02/17 11/03/23 documented as of this encounter
--- OUTSIDE RECORDS SUMMARY | 2025-09-04 18:28 | XMS_ITS | Encounter Summary ---
Author Organization [facility] Address [address] [place] [address] Phone Care Team Providers Care Radiation Therapy Technologist Name Role Phone Paulette Pantoja MD Primary Care Provider [phone] Encounter Details Date Type Department Care Team (Late st Contact Info) Description 07/08/2017 Conversion Encounter [facility] [place] [address] [place] [address] Social History Tobacco Use Types Packs/Day Years [...] on filedocumented in this encounter Care Teams Radiation Therapy Technologist Relationship Specialty Start Date End Date Paulette Pantoja MD [address] [place] [address] PCP - General 07/02/17 11/03/23 documented as of this encounter
--- OUTSIDE RECORDS SUMMARY | 2025-09-04 18:28 | XMS_ITS | Encounter Summary ---
Author Organization [facility] Address [address] [place] [address] Phone Care Team Providers Care Driveway Attendant Name Role Phone Paulette Pantoja MD Primary Care Provider [phone] Encounter Details Date Type Department Care Team (Late st Contact Info) Description 07/07/2017 Documentation [facility] [place] [address] [place] [address] Family Medicine, Physician [address] [place], [place] [address] Social History Tobacco Use Types Packs/Day Years [...] on filedocumented in this encounter Care Teams Driveway Attendant Relationship Specialty Start Date End Date Paulette Pantoja MD [address] [place] [address] [place] [address] PCP - General 07/02/17 11/03/23 documented as of this encounter
[2025-09-04 18:33] LABS: Alanine Aminotransferase 26 U/L (0-40); Albumin Level 5.0 g/dL (3.5-5.0); Alkaline Phosphatase 127 U/L (39-117); Anion Gap 16 (12-20); Aspartate Amino Transferase 26 U/L (5-37); Blood Urea Nitrogen 13 mg/dL (9-16); Calcium 9.9 mg/dL (8.4-10.2); Carbon Dioxide 26 mmol/L (22-29); Chloride 104 mmol/L (96-108); Cholesterol 142 mg/dL (<200); Estimated Glomerular Filt Rate > 60; HDL Cholesterol 40 mg/dL (>40); Potassium 4.1 mmol/L (3.3-5.1); Sodium 142 mmol/L (135-145); Total Protein 7.5 g/dL (6.5-8.0); Triglycerides 41 mg/dL (<150)
[2025-09-05 03:37] LABS: HIV Num 1 0.07 S/CO (0.00-0.99); ~HepC Num1 0.04 S/CO (0.00-0.79); ~Hepatitis C Antibody Nonreactive (Nonreactive)
== END 2025-09-04 15:50 | disposition home or self-care (01) ==
LOC: HO.CHCLDS 15:49
PROVIDERS: Visit Provider Internal Medicine
DX: Z00.00 Encounter for general adult medical examination without abnormal findings (principal); Z11.4 Encounter for screening for human immunodeficiency virus [HIV]
CPT/HCPCS: 36415; 80053; 80061; 81003; 84443; 85025; 86592; 86803; 87389